=== PATIENT | male | born 1945 | race Caucasian/White ===

== ENCOUNTER 2016-12-16 11:49 | Emergency (ER) | payer MEDICARE, BC ==
[2016-12-16] MEDS ORDERED: Famotidine IV* 10 MG/ML 2 ML (20 mg) IV SLOW PU ONE (11:53)
[2016-12-16] MEDS ORDERED: methylPREDNISolone 125 MG* 2 ML VIAL IV ONE (11:53)
[2016-12-16] MEDS ORDERED: diPHENhydraMINE IV* 50 MG/ML 1 ml VIAL (BENADRYL) SLOW PUSH ONE (11:53)
[2016-12-16] MEDS ORDERED: NS 0.9% 1000 ML* 1,000 ML BOLUS ONE ×2 (11:53→13:04)
[2016-12-16] MEDS ORDERED: EPINEPHrine AMP 1 MG/ML IM ONE (11:54)
[2016-12-16 12:08] VITALS: BP 114/73
--- NOTE | 2016-12-16 12:09 | UC ---
Allergic Reaction HPI - HPI Summary HPI Summary: Stung by honey bee approx 11am today. Has had 2 other stings in the last week, never had a reaction before. After today's sting rapidly developed itchy patches of red skin, red streaking up L arm, bloodshot eyes, chest pain, nausea , and trouble breathing. Pt began vomiting during history/exam. - History of Current Complaint Stated Complaint: ALLERGIC REACTION-BEE STING Time Seen by Provider: 12/16/16 11:52 Hx Obtained From: Patient Onset/Duration: Gradual Onset, Lasting Minutes Severity Initially: Mild Severity Currently: Severe Character: Swelling, Pruritus, Hives Aggrevating Factor(s): Heat Associated Signs And Symptoms: Positive: Chest Pain, Cough Wheezing, Diaphoresis , Difficulty Breathing, Nausea, Throat Tightening, Vomiting - Allergies/Home Medications Allergies/Adverse Reactions: Allergies Allergy/AdvReac Type Severity Reaction Status Date / Time Bee Venom Allergy Anaphylatic Verified 12/16/16 12:08 Shock Home Medications: Home Medications Coenzyme Q10 (Ubidecarenone) [Co Q-10] 30 mg PO 12/16/16 [History] Misc Natural Products [Saw [place]] 1 cap PO 12/16/16 [History] Multiple Vitamins W/ Minerals [Multivitamin Men 50+] 1 tab PO 12/16/16 [History] PMH/Surg Hx/FS Hx/Imm Hx Previously Healthy: Yes - Surgical History Surgical History: Yes Surgery Procedure, Year, and Place: NOSE RECON AT [facility] [place], LEFT KNEE CARTLIDGE REPAIR 1998 - Family History Known Family History: Positive: Hypertension Family History: NON CONTRIBUTORY - Social History Lives: With Family Alcohol Use: None Substance Use Type: None Smoking Status (MU): Never Smoked Tobacco Review of Systems Constitutional: Negative Skin: Rash Eyes: Negative ENT: Negative Respiratory: Negative Cardiovascular: Negative Gastrointestinal: Vomiting, Nausea Genitourinary: Negative Motor: Negative Neurovascular: Negative Musculoskeletal: Negative Neurological: Negative Psychological: Anxious All Other Systems Reviewed And Are Negative: Yes Physical Exam Triage Information Reviewed: Yes Appearance: Well-Nourished, Ill-Appearing Vital Signs Reviewed: Yes Eye Exam: Other - PERRL Eyes: Positive: Conjunctiva Inflamed - bilat ENT: Positive: Pharynx normal, TMs normal, Other: - oropharynx widely patent. Negative: Pharyngeal erythema, Nasal congestion, Tonsillar swelling Dental Exam: Normal Neck exam: Normal Neck: Positive: Supple, Nontender, No Lymphadenopathy Respiratory: Positive: Normal breath sounds, No respiratory distress, Other: - pt complaining of difficutly breathing, but significant air movement noted. Negative: Stridor, Wheezing Cardiovascular Exam: Normal Cardiovascular: Positive: RRR, No Murmur Abdomen Description: Positive: Other: - active vomiting on exam Musculoskeletal Exam: Normal Neurological: Positive: Alert Psychological Exam: Other - prior to epinephrine was in distress, could only answer questions with active concentration and adequate time Skin Exam: Other - urticaria on L arm, bilat axillae Re-Evaluation - Re-Evaluation First Eval Re-Evaluation Time: 12:15 Change: Improved - vomiting stopped, pt reports feeling better Second Eval Re-Evaluation Time: 12:15 Change: Improved - color in face returned to normal, no further trouble breathing or nausea Third Eval Re-Evaluation Time: 12:40 Change: Improved - Pt sleeping soundly on cot, redness on R arm and in axillae still present but improving Fourth Eval Re-Evaluation Time: 13:00 Change: Improved - pt sleeping, no new redness or swelling Fifth Eval Re-Evaluation Time: 13:40 - discussed d/c with patient. He feels WAGNER and PND, otherwise feels normal and desires discharge Allergic Reaction Course/Dx - Differential Dx/Diagnosis Differential Diagnosis/HQI/PQRI: Anaphylaxis, Local Allergic Reaction, Urticaria Provider Diagnoses: anaphylaxis Discharge - Discharge Plan Condition: Stable Disposition: HOME Prescriptions: Epinephrine [Epipen 2-Jesus] 0.3 mg IM ONCE #1 inj Famotidine TAB* [Pepcid 20 MG TAB*] 20 mg PO DAILY #10 tab predniSONE TAB* [Deltasone TAB*] 50 mg PO DAILY #5 tab Patient Education Materials: Anaphylaxis (ED) Referrals: Raul Downing MD [Primary Care Provider] - 1 Week Additional Instructions: Continue to take diphenhydramine 50mg 3-4 times per day for the next 3 days. If you have chest pain, abdominal pain, increasing rash, nausea vomiting, or other worsening symptoms, please go to the emergency department right away.
[2016-12-16] MEDS ORDERED: EPINEPHrine AMP 1 MG/ML ONE (14:39)
== END 2016-12-16 14:20 | disposition home or self-care (01) ==
LOC: UCEAST 11:49
DX: T63.441A Toxic effect of venom of bees, accidental (unintentional), initial encounter (principal); T78.2XXA Anaphylactic shock, unspecified, initial encounter; R11.2 Nausea with vomiting, unspecified; X58.XXXA Exposure to other specified factors, initial encounter
CPT/HCPCS: 96360; 96361; 96372; 96374; 96375; 96376; 99212; G0463; J0171; J1200; J2930

== ENCOUNTER 2016-12-22 11:20 | Emergency (ER) | payer MEDICARE, BC ==
[2016-12-22 11:53] VITALS: BP 131/79
[2016-12-22] MEDS ORDERED: NS 0.9% 1000 ML* 1,000 ML IV ONE (12:11)
[2016-12-22 13:17] LABS: Hematocrit 48 % (42-52); Hemoglobin 15.7 g/dl (14.0-18.0); Mean Corpuscular HGB Conc 33 g/dl (31-36); Mean Corpuscular Hemoglobin 32 pg (27-31); Mean Corpuscular Volume 97 fL (80-94); Mean Platelet Volume 9 um3 (7.4-10.4); Red Blood Count 4.97 10^6/ul (4.0-5.4); Red Cell Distribution Width 14 % (10.5-15); White Blood Count 11.9 10^3/ul (3.5-10.8)
[2016-12-22 13:21] LABS: Urine Bilirubin Negative (Negative); Urine Glucose Negative (Negative); Urine Nitrite Negative (Negative)
[2016-12-22 13:30] LABS: BUN/Creatinine Ratio 24.1 (8-20); Calcium 9.6 mg/dL (8.6-10.3); EGFR African American 79.6 (>60); EGFR Non-African American 61.9 (>60); Globulin 2.9 g/dL (2-4); Potassium 3.4 mmol/L (3.5-5.0); Total Bilirubin 1.1 mg/dL (0.2-1.0); Total Protein 6.9 g/dL (6.4-8.9)
[2016-12-22 13:31] LABS: Troponin I 0.03 ng/mL (<0.04)
[2016-12-22] MEDS ORDERED: Iohexol 350* (CONTRAST) 500 ML MDV IV ONE (13:59)
--- NOTE | 2016-12-22 14:40 | RAD ---
HISTORY: Dizziness, neck pain COMPARISONS: None TECHNIQUE: Multiple contiguous axial CT scans were obtained of the head without intravenous contrast. FINDINGS: HEMORRHAGE/INFARCT: There is no hemorrhage or acute infarct. MASSES/SHIFT: There is no mass or shift. EXTRA-AXIAL SPACES: There are no extra-axial fluid collections. SULCI AND VENTRICLES: The sulci and ventricles are normal in size and position for the patient's stated age. CEREBRUM: There are no focal parenchymal abnormalities. BRAINSTEM: There are no focal parenchymal abnormalities. CEREBELLUM: There are no focal parenchymal abnormalities. VESSELS: The vessels are grossly normal. PARANASAL SINUSES: The paranasal sinuses are clear. ORBITS: The orbits are unremarkable. BONES AND SOFT TISSUE: No bone or soft tissue abnormalities are noted. OTHER: None IMPRESSION: NO ACUTE INTRACRANIAL PATHOLOGY.
--- NOTE | 2016-12-22 14:52 | RAD ---
HISTORY: Neck pain after manipulation, dissection COMPARISONS: CT dated December 14, 2012 TECHNIQUE: Multiple contiguous axial CT scans were obtained of the head and neck After the administration of nonionic intravenous contrast timed to the systemic arterial phase of contrast enhancement. Coronal and sagittal multiplanar reformations are submitted for review. Multiple 3-D maximum intensity projection reconstructions are also submitted for review. FINDINGS: CTA NECK: AORTIC ARCH: There is a normal three-vessel branching pattern of the aortic arch. There is no ostial or proximal stenosis of the cephalic great vessels. RIGHT VERTEBRAL ARTERY: The right vertebral artery is patent along its course, without stenosis. LEFT VERTEBRAL ARTERY: The left vertebral artery is patent along its course, without stenosis. DOMINANCE: The vertebral arteries are codominant. RIGHT COMMON CAROTID ARTERY: The right common carotid artery is patent. The right carotid bifurcation occurs at C4-C5. RIGHT INTERNAL CAROTID ARTERY: There is no right internal carotid artery stenosis by NASCET criteria. There is no appreciable intimal flap. RIGHT EXTERNAL CAROTID ARTERY: The right external carotid artery is unremarkable. LEFT COMMON CAROTID ARTERY: The left common carotid artery is patent. The left carotid bifurcation occurs at C4-C5 LEFT INTERNAL CAROTID ARTERY: There is no left internal carotid artery stenosis by NASCET criteria. There is no appreciable intimal flap LEFT EXTERNAL CAROTID ARTERY: The left external carotid artery is unremarkable. VENOUS CIRCULATION: The venous system is unremarkable. SALIVARY GLANDS: The parotid glands, submandibular glands, sublingual glands are normal. NASAL CAVITY/NASOPHARYNX: The nasal cavity and nasopharynx are normal. ORAL CAVITY/OROPHARYNX: The oral cavity is obscured by streak artifact from dental amalgam. The visualized oral cavity and oropharynx are unremarkable. LARYNGEAL APPARATUS/HYPOPHARYNX: The laryngeal apparatus and hypopharynx are normal. UPPER AIRWAY/UPPER ESOPHAGUS: The visualized upper airway and esophagus are normal. LUNG APICES: The lung apices are clear. THYROID GLAND: The thyroid gland is normal. LYMPH NODES: There is no lymphadenopathy by size criteria. BONES AND SOFT TISSUES: No bone or soft tissue abnormalities are noted. CTA HEAD: INTRACRANIAL CIRCULATION: There is no aneurysm, vascular malformation, occlusion, or stenosis of the visualized intracranial circulation. The anterior communicating artery complex is clear. There is a origin of the right posterior cerebral artery. VENOUS CIRCULATION: The venous system is unremarkable. PERFUSION: There is no obvious parenchymal perfusion deficit. HEMORRHAGE/INFARCT: There is no hemorrhage or acute infarct. MASSES/SHIFT: There is no mass or shift. EXTRA-AXIAL SPACES: There are no extra-axial fluid collections. SULCI AND VENTRICLES: The sulci and ventricles are normal in size and position for the patient's stated age. CEREBRUM: There are no focal parenchymal abnormalities. BRAINSTEM: There are no focal parenchymal abnormalities. CEREBELLUM: There are no focal parenchymal abnormalities. PARANASAL SINUSES: The paranasal sinuses are clear. ORBITS: The orbits are unremarkable. BONES AND SOFT TISSUE: No bone or soft tissue abnormalities are noted. OTHER: There is no abnormal enhancement. IMPRESSION: 1. NO INTERNAL CAROTID ARTERY STENOSIS BY NASCET CRITERIA. NO APPRECIABLE FLAP TO SUGGEST DISSECTION. 2. NO ANEURYSM, VASCULAR MALFORMATION, OCCLUSION, OR STENOSIS OF THE VISUALIZED INTRACRANIAL CIRCULATION. CPT II Codes: 3100F
--- NOTE | 2016-12-22 15:43 | ED ---
Dallas Restrepo SooYoung, scribed for Eric House MD on 12/22/16 at 1204 . Dizziness - HPI Summary HPI Summary: A 71 y/o M presents to ED with c/o nausea and dizziness onset yesterday afternoon. Sx came on when pt was having manipulation work done with Dr. Batres yesterday afternoon, as well as this AM. In between sessions, he states he went home and "slept for [address] Batres referred him to ED after the sx continued this AM. Associated sx: post nasal drip, frontal WAGNER, malaise. Denies abd pain, numbness/tingling, slurred speech, leg weakness. Alleviating factors: lying on side. Aggravating factors: lying on back. Pt states the sx often come on with certain yoga positions, manipulations where his neck is bending. Previous episodes occurred 5 and 10 years ago. Pert PMHx: chronic neck pain for past 6 months. - History Of Current Complaint Chief Complaint: EDDizziness Stated Complaint: DIZZY Time Seen by Provider: 12/22/16 11:51 Hx Obtained From: Patient, Family/Combination Technician Onset/Duration: Still Present Timing: Constant Severity Initially: Mild Severity Currently: Mild Aggravating Factor(s): Position Change Alleviating Factor(s): Lying Down - on side only Associated Signs And Symptoms: Positive: Other: - frontal WAGNER, post nasal drip, malaise - Allergies/Home Medications Allergies/Adverse Reactions: Allergies Allergy/AdvReac Type Severity Reaction Status Date / Time Bee Venom Allergy Anaphylatic Verified 12/22/16 14:17 Shock Home Medications: Home Medications Allopurinol TAB* [Zyloprim 300 MG TAB*] 300 mg PO DAILY 12/22/16 [History Confirmed 12/22/16] Coenzyme Q10 (Ubidecarenone) [Co Q-10] 30 mg PO DAILY 12/22/16 [History Confirmed 12/22/16] Epinephrine [Epipen 2-Jesus] 0.3 mg IM ONCE PRN 12/22/16 [History Confirmed ] Rosuvastatin (NF) [Crestor (NF)] 5 mg PO DAILY 12/22/16 [History Confirmed 12/22] PMH/Surg Hx/FS Hx/Imm Hx Previously Healthy: Yes Endocrine/Hematology History: Denies: Hx Diabetes, Hx Thyroid Disease Cardiovascular History: Denies: Hx Hypertension, Hx Pacemaker/ICD Respiratory History: Denies: Hx Asthma, Hx Chronic Obstructive Pulmonary Disease (COPD) GI History: Denies: Hx Ulcer History: Denies: Hx Dialysis, Hx Renal Disease Sensory History: Reports: Hx Hearing Aid Psychiatric History: Denies: Hx Panic Disorder - Surgical History Surgery Procedure, Year, and Place: NOSE RECON AT [facility] – [place] 1993, LEFT KNEE CARTLIDGE REPAIR 1998 Infectious Disease History: No Infectious Disease History: 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 Negative: Abdominal Pain Neurological: Other - pos: dizziness, malaise Positive: Headache. Negative: Weakness, Numbness, Slurred Speech All Other Systems Reviewed And Are Negative: Yes Physical Exam - Summary Physical Exam Summary: The patient is well-nourished in no acute distress and in no acute pain. The skin is warm and dry and skin color reflects adequate perfusion. HEENT: The head is normocephalic and atraumatic. The pupils are equal and reactive. EOMI. No nystagmus. The conjunctivae are clear and without drainage. Nares are patent and without drainage. Mouth reveals moist dry membranes and the throat is without erythema and exudate. The external ears are intact. The ear canals are patent and without drainage. The tympanic membranes are intact. Neck is supple and non-tender. There are no carotid bruits. There is no neck vein distension. Extension and flexion exacerbate symptoms. Respiratory: Chest is non-tender. Lungs are clear to auscultation and breath sounds are symmetrical and equal. Cardiovascular: Bradycardia. There is no murmur or rub auscultated. There is no peripheral edema and pulses are symmetrical and equal. Abdomen: The abdomen is soft and non-tender. There are normal bowel sounds heard in all four quadrants and there is no organomegaly palpated. Musculoskeletal: There is no back pain noted. Extremities are non-tender with full range of motion. There is good capillary refill. There is no peripheral edema or calf tenderness elicited. Neurological: Patient is alert and oriented to person, place and time. Cranial nerves are grossly intact. No focal neural deficit in upper and lower extremities. Psychiatric: The patient has an appropriate affect and does not exhibit any anxiety or depression. Triage Information Reviewed: Yes Vital Signs On Initial Exam: Initial Vitals Temp Pulse Resp BP Pulse Ox 96.9 F 86 18 135/102 96 12/22/16 11:25 12/22/16 11:25 12/22/16 11:25 12/22/16 11:25 12/22/16 11:25 Vital Signs Reviewed: Yes - [place] Coma Scale Coma Scale Total: 15 Diagnostics - Vital Signs Vital Signs Temp Pulse Resp BP Pulse Ox 12/22/16 11:36 53 94 12/22/16 11:34 131/79 12/22/16 11:28 97.3 F 82 18 135/102 92 12/22/16 11:25 96.9 F 86 18 135/102 96 - Laboratory Lab Results: Lab Results 12/22/16 12/22/16 12/22/16 Range/Units 12:56 12:56 12:56 WBC 11.9 H (3.5-10.8) 10^3/ul RBC 4.97 (4.0-5.4) 10^6/ul Hgb 15.7 (14.0-18.0) g/dl Hct 48 (42-52) % MCV 97 H (80-94) fL MCH 32 H (27-31) pg MCHC 33 (31-36) g/dl RDW 14 (10.5-15) % Plt Count 218 (150-450) 10^3/ul MPV 9 (7.4-10.4) um3 Neut % (Auto) 76.7 (38-83) % Lymph % (Auto) 15.8 L (25-47) % [place] % (Auto) 7.2 (1-9) % Eos % (Auto) 0.1 (0-6) % Baso % (Auto) 0.2 (0-2) % Absolute Neuts (auto) 9.1 H (1.5-7.7) 10^3/ul Absolute Lymphs (auto) 1.9 (1.0-4.8) 10^3/ul Absolute Monos (auto) 0.9 H (0-0.8) 10^3/ul Absolute Eos (auto) 0 (0-0.6) 10^3/ul Absolute Basos (auto) 0 (0-0.2) 10^3/ul Absolute Nucleated RBC 0 10^3/ul Nucleated RBC % 0 INR (Anticoag Therapy) 0.95 (0.89-1.11) Sodium (133-145) mmol/L Potassium (3.5-5.0) mmol/L Chloride (101-111) mmol/L Carbon Dioxide (22-32) mmol/L Anion Gap (2-11) mmol/L BUN (6-24) mg/dL Creatinine (0.67-1.17) mg/dL Est GFR ( Amer) (>60) Est GFR (Non-Af Amer) (>60) BUN/Creatinine Ratio (8-20) Glucose (70-100) mg/dL Lactic Acid (0.5-2.0) mmol/L Calcium (8.6-10.3) mg/dL Total Bilirubin (0.2-1.0) mg/dL AST (13-39) U/L ALT (7-52) U/L Alkaline Phosphatase (34-104) U/L Troponin I (<0.04) ng/mL Total Protein (6.4-8.9) g/dL Albumin (3.2-5.2) g/dL Globulin (2-4) g/dL Albumin/Globulin Ratio (1-3) Urine Color Yellow Urine Appearance Cloudy Urine pH 6.0 (5-9) Ur Specific [place] 1.024 (1.010-1.030) Urine Protein Negative (Negative) Urine Ketones Trace H (Negative) Urine Blood Negative (Negative) Urine Nitrate Negative (Negative) Urine Bilirubin Negative (Negative) Urine Urobilinogen Negative (Negative) Ur Leukocyte Esterase Negative (Negative) Urine Glucose Negative (Negative) Urine Ascorbic Acid * H (Negative) 12/22/16 12/22/16 Range/Units 12:56 12:56 WBC (3.5-10.8) 10^3/ul RBC (4.0-5.4) 10^6/ul Hgb (14.0-18.0) g/dl Hct (42-52) % MCV (80-94) fL MCH (27-31) pg MCHC (31-36) g/dl RDW (10.5-15) % Plt Count (150-450) 10^3/ul MPV (7.4-10.4) um3 Neut % (Auto) (38-83) % Lymph % (Auto) (25-47) % [place] % (Auto) (1-9) % Eos % (Auto) (0-6) % Baso % (Auto) (0-2) % Absolute Neuts (auto) (1.5-7.7) 10^3/ul Absolute Lymphs (auto) (1.0-4.8) 10^3/ul Absolute Monos (auto) (0-0.8) 10^3/ul Absolute Eos (auto) (0-0.6) 10^3/ul Absolute Basos (auto) (0-0.2) 10^3/ul Absolute Nucleated RBC 10^3/ul Nucleated RBC % INR (Anticoag Therapy) (0.89-1.11) Sodium 140 (133-145) mmol/L Potassium 3.4 L (3.5-5.0) mmol/L Chloride 104 (101-111) mmol/L Carbon Dioxide 29 (22-32) mmol/L Anion Gap 7 (2-11) mmol/L BUN 28 H (6-24) mg/dL Creatinine 1.16 (0.67-1.17) mg/dL Est GFR ( Amer) 79.6 (>60) Est GFR (Non-Af Amer) 61.9 (>60) BUN/Creatinine Ratio 24.1 H (8-20) Glucose 110 H (70-100) mg/dL Lactic Acid 1.2 (0.5-2.0) mmol/L Calcium 9.6 (8.6-10.3) mg/dL Total Bilirubin 1.10 H (0.2-1.0) mg/dL AST 18 (13-39) U/L ALT 30 (7-52) U/L Alkaline Phosphatase 63 (34-104) U/L Troponin I 0.03 (<0.04) ng/mL Total Protein 6.9 (6.4-8.9) g/dL Albumin 4.0 (3.2-5.2) g/dL Globulin 2.9 (2-4) g/dL Albumin/Globulin Ratio 1.4 (1-3) Urine Color Urine Appearance Urine pH (5-9) Ur Specific [place] (1.010-1.030) Urine Protein (Negative) Urine Ketones (Negative) Urine Blood (Negative) Urine Nitrate (Negative) Urine Bilirubin (Negative) Urine Urobilinogen (Negative) Ur Leukocyte Esterase (Negative) Urine Glucose (Negative) Urine Ascorbic Acid (Negative) Result Diagrams: 12/22/16 12:56 12/22/16 12:56 Lab Statement: Any lab studies that have been ordered have been reviewed, and results considered in the medical decision making process. - CT Brain CT CT Interpretation: No Acute Changes - Impression: No acute intracranial pathology. CT Interpretation Completed By: Radiologist Head CTA CT Interpretation: No Acute Changes - IMPRESSION: 1. NO INTERNAL CAROTID ARTERY STENOSIS BY NASCET CRITERIA. NO APPRECIABLE FLAP TO SUGGEST DISSECTION. 2. NO ANEURYSM, VASCULAR MALFORMATION, OCCLUSION, OR STENOSIS OF THE VISUALIZED INTRACRANIAL CIRCULATION. CT Interpretation Completed By: Radiologist Re-Evaluation - Re-Evaluation 1 Re-Evaluation Time: 14:59 Change: Improved Comment: Discussing lab and CT results with pt. Pt lying on back without sx, denies dizziness. Ready to go home. Dizzy Course/Dx - Course Course Of Treatment: A 71 y/o M presents to ED with c/o nausea and dizziness onset yesterday afternoon. Sx came on when pt was having manipulation work done yesterday afternoon, as well as this AM. In between sessions, he states he went home and "slept for 24 hours." Referred to ED by Dr. Batres after the sx continued this AM. Associated sx: post nasal drip, frontal WAGNER, malaise. Denies abd pain, numbness/tingling, slurred speech, leg weakness. Alleviating factors: lying on side. Aggravating factors: lying on back. Pt states the sx often come on with certain yoga positions, manipulations where his neck is bending. Previous episodes occurred 5 and 10 years ago. Pert PMHx: chronic neck pain for past 6 months. Pt given fluids in ED. Lab results show elevated BUN/C ratio. Trop was 0.03. UA results show trace ketones and ascorbic acid present. Brain CT shows no acute findings. Head CTA shows no acute findings, see Diagnostics for full impression. Will D/C home. - Diagnoses Differential Diagnosis/HQI/PQRI: Benign Paroxysmal Positional Vertigo, Hypovolemia, Labyrinthitis, Other - carotid dissection, carotid occlusion, cva, dehydration Provider Diagnoses: Dizziness, Dehydration, Neck pain Discharge - Discharge Plan Condition: Stable Disposition: HOME Patient Education Materials: Dizziness (ED), Dehydration (ED), Neck Pain (ED) Referrals: Raul Downing MD [Primary Care Provider] - Additional Instructions: Please return to the ED if you experience new or worsening symptoms. The documentation as recorded by the Dallas pollock SooYoung accurately reflects the service I personally performed and the decisions made by , Eric House MD.
== END 2016-12-22 15:45 | disposition home or self-care (01) ==
LOC: ED 11:20
DX: R42 Dizziness and giddiness (principal); E86.0 Dehydration; M54.2 Cervicalgia
CPT/HCPCS: 36415; 70450; 70496; 70498; 80053; 81003; 83605; 84484; 85025; 85610; 96360; 99283; Q9967

== ENCOUNTER 2016-12-30 12:24 | Emergency (ER) | payer MEDICARE, BC ==
[2016-12-30 12:29] VITALS: BP 129/89
[2016-12-30] MEDS ORDERED: NS 0.9% 1000 ML* 1,000 ML BOLUS ONE (12:36)
[2016-12-30] MEDS ORDERED: methylPREDNISolone 125 MG* 2 ML VIAL IV ONE (12:37)
[2016-12-30] MEDS ORDERED: Famotidine IV* 10 MG/ML 2 ML (20 mg) IV SLOW PU ONE (12:37)
[2016-12-30] MEDS ORDERED: EPINEPHrine AMP 1 MG/ML IM ONE (12:38)
--- NOTE | 2016-12-30 12:46 | UC ---
Knee Pain HPI - HPI Summary HPI Summary: Pt had anaphylaxis to honey bee sting 12/16/16. Was stung again today approx 30 minutes ago, mainly feeling local pain and swelling. Starting to get a little light-headed, but denies hives, vomiting, trouble breathing, chest pain, or mouth swelling. Has epi pen at home but did not want to use it because of the needle. - History of Current Complaint Chief Complaint: UCAllergicReaction Stated Complaint: BEE STING Time Seen by Provider: 12/30/16 12:30 Hx Obtained From: Patient Onset/Duration: Sudden Onset Severity Initially: Mild Severity Currently: Mild Character: Dull, Aching Aggravating Factor(s): Movement Alleviating Factor(s): Rest Associated Signs And Symptoms: Positive: Swelling, Redness Able to Bear Weight: Yes - Allergies/Home Medications Allergies/Adverse Reactions: Allergies Allergy/AdvReac Type Severity Reaction Status Date / Time Bee Venom Allergy Anaphylatic Verified 12/22/16 14:17 Shock PMH/Surg Hx/FS Hx/Imm Hx Previously Healthy: No - anaphylaxis - Surgical History Surgical History: Yes Surgery Procedure, Year, and Place: [place] [facility], LEFT KNEE CARTLIDGE REPAIR 1998 - Family History Known Family History: Positive: Cardiac Disease, Hypertension Family History: NON CONTRIBUTORY - Social History Occupation: Retired Lives: With Family Alcohol Use: Rare Substance Use Type: None Smoking Status (MU): Never Smoked Tobacco Review of Systems Constitutional: Negative Skin: Other - bee sting L knee Eyes: Negative ENT: Negative Respiratory: Negative Cardiovascular: Negative Gastrointestinal: Negative Genitourinary: Negative Motor: Negative Neurovascular: Negative Musculoskeletal: Negative Neurological: Negative Psychological: Negative All Other Systems Reviewed And Are Negative: Yes Physical Exam Triage Information Reviewed: Yes Appearance: Well-Appearing, No Pain Distress, Well-Nourished Vital Signs: Initial Vital Signs Temp 98 F 12/30/16 12:26 Pulse 75 12/30/16 12:26 Resp 16 12/30/16 12:26 BP 129/89 12/30/16 12:26 Pulse Ox 100 12/30/16 12:26 Vital Signs Reviewed: Yes Eye Exam: Normal Eyes: Positive: Conjunctiva Clear ENT Exam: Normal ENT: Positive: Normal ENT inspection, Hearing grossly normal, Pharynx normal - widely patent, Nasal congestion Dental Exam: Normal Neck exam: Normal Neck: Positive: Supple, Nontender, No Lymphadenopathy Respiratory Exam: Normal Respiratory: Positive: Chest non-tender, Lungs clear, Normal breath sounds, No respiratory distress, No accessory muscle use, Respiratory distress Cardiovascular Exam: Normal Cardiovascular: Positive: RRR, No Murmur Abdomen Description: Positive: Nontender, No Organomegaly, Soft Musculoskeletal Exam: Normal Neurological Exam: Normal Neurological: Positive: Alert Psychological Exam: Normal Skin Exam: Normal - no hives Re-Evaluation - Re-Evaluation First Eval Re-Evaluation Time: 13:00 Change: Improved - Does not feel dizzy or light-headed Second Eval Re-Evaluation Time: 13:32 Change: Improved - no itchiness, nausea, or pain. Feels ready to go home. Knee Pain Course/Dx - Course Course Of Treatment: Discussed continuing the benadryl for 3-4 days; pt does not want to take prednisone, but I will prescribe it in case he has increasing symptoms or a large local reaction. - Differential Dx/Diagnosis Provider Diagnoses: insect sting. elevated blood pressure due to anxiety Discharge - Discharge Plan Condition: Stable Disposition: HOME
== END 2016-12-30 13:40 | disposition home or self-care (01) ==
LOC: UCEAST 12:24
DX: T63.441A Toxic effect of venom of bees, accidental (unintentional), initial encounter (principal); R22.42 Localized swelling, mass and lump, left lower limb
CPT/HCPCS: 96361; 96374; 96375; 99212; G0463; J0171; J2930

== ENCOUNTER 2017-09-17 23:14 | Emergency (ER) | payer MEDICARE, BC ==
--- OUTSIDE RECORDS SUMMARY | 2017-09-17 23:31 | XMS REPORT ---
:1945 External Reference #:[id number] Author Organization [facility] Address [address] [place] [address] Phone [phone] Care Team Providers Name Role Phone Raul Downing M.D. Care Team Information Government Gauger Unavailable Raul Downing M.D. Primary Care Physician Unavailable Payers Type Date Identification Numbers Payment Provider Subscriber Medicare Primary Policy Number: [id number] Medicare-National Tirso Heard GVT.Sys PayID: [id number] [address] [place] [address] Medigap Part B Effective: Policy Number: [place]-[employer] Tirso Heard 2016 [id number] Healthcare Group Number: [id number] [address] Group Name: [place] [address] PayID: [id number] Problems Date Description Provider Status Onset: 01/12/2017 Toxic effect of venom of bees, Kourtney Blanco M.D. 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 Home Environment Cotton Comforter Home Environment Mattress is 2 years old Home Environment Mattress is not encased in an allergy proof case Home Environment Regular Mattress Home Environment Pillows are rubber (foam) Home Environment Pillows are not encased in an allergy proof case Home Environment There are no draperies in the home Home Environment The home is sreekanth Home Environment The floors are carpeted Home Environment The floors are wood Home Environment The floors are tile Home Environment Uses propane gas heating Home Environment Uses wood heating Home Environment [place] Home Environment Water Source: Well Smoke-Free Home is smoke-free Smoke-Free Work is smoke-free Pets 1 dog Occupation Retired Hobbies Cooking Hobbies Gardening Hobbies Sports Hobbies Tennis, Bonsai, Bees ETOH Use Rarely consumes alcohol Smoking Patient has never smoked Recreational Drug Use Never Used Drugs Allergies, Adverse Reactions, Alerts Date Description Reaction Status Severity Comments 01/12/2017 NKDA active Medications Medication Date Status Form Strength Qnty SIG Indications Ordering Provider Allopurinol Active Tablets 300mg Silcoff, 000 Juliocesar Carter Epinephrine Active Solution 0.3mg/0.3ML Unknown 000 Auto-Inject Crestor Active Tablets 5mg Unknown 000 Meloxicam Active Tablets 15mg Unknown 000 Yamini Active Tablets 180mg 1 by Unknown Allergy 000 mouth every day Medications Administered in Office Medication Date Status Form Strength Qnty SIG Indications Ordering Provider Injection 08/30/19 Administered Injection Allergy 18 Injection Injection 08/22/19 Administered Injection Allergy 18 Injection Injection 08/15/19 Administered Injection Allergy 18 Injection Injection 08/08/19 Administered Injection Allergy 18 Injection Injection 08/01/19 Administered Injection Allergy 18 Injection Injection 07/25/19 Administered Injection Allergy 18 Injection Injection 06/17/20 Administered Injection Allergy 17 Injection Injection 06/13/20 Administered Injection Allergy 17 Injection Injection 06/06/20 Administered Injection Allergy 17 Injection Injection 05/30/20 Administered Injection Allergy 17 Injection Injection 05/23/20 Administered Injection Allergy 17 Injection Injection 05/09/20 Administered Injection Allergy 17 Injection Injection 05/02/20 Administered Injection Allergy 17 Injection Injection 04/25/20 Administered Injection Allergy 17 Injection Injection 04/11/20 Administered Injection Allergy 17 Injection Injection 04/04/20 Administered Injection Allergy 17 Injection Injection 03/25/20 Administered Injection Allergy 17 Injection Injection 03/21/20 Administered Injection Allergy 17 Injection Injection 03/14/20 Administered Injection Allergy 17 Injection Injection 03/07/20 Administered Injection Allergy 17 Injection Injection 02/26/20 Administered Injection Allergy 17 Injection Injection 02/22/20 Administered Injection Allergy 17 Injection Injection 02/15/20 Administered Injection Allergy 17 Injection Injection 02/08/20 Administered Injection Allergy 17 Injection Injection 02/01/20 Administered Injection Allergy 17 Injection Immunizations CPT Code Status Date Vaccine Lot # 53949 Given Unknown Influenza Vaccine 3 Years Old + Vital Signs Date Vital Result Comment 09/02/2017 Height 70 inches 5'10" Weight 195.00 lb Weight in kg's 88.452 Respiratory Rate 22 /min Heart Rate 66 /min O2 % BldC Oximetry 97 % BP Systolic 116 mmHg BP Diastolic 75 mmHg BMI (Body Mass Index) 28.0 kg/m2 02/16/2017 Height 70 inches 5'10" Weight 185.00 lb Weight in kg's 83.916 Respiratory Rate 20 /min Heart Rate 62 /min O2 % BldC Oximetry 98 % BP Systolic 123 mmHg BP Diastolic 69 mmHg BMI (Body Mass Index) 26.5 kg/m2 01/12/2017 Height 69 inches 5'9" Weight 187.00 lb Weight in kg's 84.823 Respiratory Rate 20 /min Heart Rate 66 /min O2 % BldC Oximetry 98 % BP Systolic 120 mmHg BP Diastolic 74 mmHg BMI (Body Mass Index) 27.6 kg/m2 Results Test Date Test Result H/L Range Note Laboratory test finding 01/12/2017 Rast White Face Hornet 0.76 kU/L 1 Rast Yellow Hornet 1.03 kU/L 2 Rast Yellow Jacket 2.17 kU/L 3 Rast Paperwasp Venom 0.54 kU/L 4 Rast Honeybee Venom 70.2 kU/L 5 Tryptase 1.1 ng/mL <11.5 6 1 Class 2 (Positive 0.70-3.49) Test Performed by: [place] [address] 2 Class 2 (Positive 0.70-3.49) Test Performed by: [address] [address] 3 Class 2 (Positive 0.70-3.49) Test Performed by: [address] [address] 4 Class 1 (Equivocal 0.35-0.69) Test Performed by: [address] [address] 5 Class 5 (Strongly Positive 50.0-99.9) Test Performed by: [address] [address] Test Performed by: [address] [address] Procedures Date CPT Code Description Status 08/29/2017 08620 Injection Completed 08/22/2017 60609 Injection Completed 08/15/2017 56021 Injection Completed 08/08/2017 99903 Injection Completed 08/01/2017 20518 Injection Completed 07/25/2017 81278 Injection Completed 06/17/2017 05820 Injection Completed 06/13/2017 41262 Injection Completed 06/06/2017 52945 Injection Completed 05/30/2017 75909 Injection Completed 05/23/2017 22284 Injection Completed 05/09/2017 07959 Injection Completed 05/02/2017 96591 Injection Completed 04/25/2017 48394 Injection Completed 04/11/2017 00885 Injection Completed 04/04/2017 89473 Injection Completed 03/25/2017 98813 Injection Completed 03/21/2017 96671 Injection Completed 03/14/2017 43583 Injection Completed 03/07/2017 51413 Injection Completed 02/25/2017 79653 Injection Completed 02/21/2017 88643 Injection Completed 02/14/2017 46960 Injection Completed 02/07/2017 87529 Injection Completed 01/31/2017 38374 Injection Completed 01/25/2017 94880 Extract Stings-Five Completed Encounters Type Date Location Provider CPT E/M Dx Office Visit 09/02/2017 10:00a OUMOU Mcgee 41137 T63.461D T63.441D Office Visit 02/16/2017 9:00a OUMOU Mcgee 08122 T63.441D T63.461D T63.441A Office Visit 01/12/2017 9:40a Juan Jose Blanco M.D. 65992 T63.441A Plan of Care Future Appointment(s):03/06/2018 10:00 am - OUMOU Venegas at Riexvw5805/2018 8:45 am - Allergy Injection at Jzyalf3309/02/2017 - Izabel Woods, SALES RECRUITER- CT63.461D Toxic effect of venom of wasps, accidental, subsT63.441D Toxic effect of venom of bees, accidental, subsRecommendations:Continue all medications as prescribed.Refrain from wearing perfumes/scented colognes while visitingour office. Continue the IT as tolerated. Continue the Epipen,UTD
--- OUTSIDE RECORDS SUMMARY | 2017-09-17 23:31 | XMS REPORT ---
:1945 External Reference #:[id number] Author Organization [facility] Address [address] [place] [address] Phone [phone] Care Team Providers Name Role Phone Raul Downing M.D. Care Team Information Transportation Modeler Unavailable Raul Downing M.D. 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 Home Environment Cotton Comforter Home Environment Mattress [...] Strength Qnty SIG Indications Ordering Provider Injection 09/06/19 Administered Injection Allergy 18 Injection Injection 08/30/19 Administered Injection Allergy 18 Injection [...] CPT Code Status Date Vaccine Lot # [id number] Given Unknown Influenza Vaccine 3 Years Old [...] Class 2 (Positive 0.70-3.49) Test Performed by: [address] [address] 2 Class 2 (Positive 0.70-3.49) Test Performed by: [address] [address] 3 Class 2 (Positive 0.70-3.49) Test Performed by: [place] [id number] 4 Class 1 (Equivocal 0.35-0.69) Test Performed by: [address] [address] 5 Class 5 (Strongly Positive 50.0-99.9) Test Performed by: [address] [address] Test Performed by: [address] [address] Procedures Date CPT Code Description Status 09/05/2017 93516 Extract Stings-Five Completed 09/05/2017 07040 Injection Completed 08/29/2017 97843 Injection Completed 08/22/2017 44544 Injection Completed 08/15/2017 84330 Injection Completed 08/08/2017 51759 Injection Completed 08/01/2017 79878 Injection Completed 07/25/2017 73383 Injection Completed 06/17/2017 47815 Injection Completed 06/13/2017 38218 Injection Completed 06/06/2017 25645 Injection Completed 05/30/2017 55216 Injection Completed 05/23/2017 32781 Injection Completed 05/09/2017 42505 Injection Completed 05/02/2017 89671 Injection Completed 04/25/2017 33629 Injection Completed 04/11/2017 72093 Injection Completed 04/04/2017 81549 Injection Completed 03/25/2017 69877 Injection Completed 03/21/2017 46214 Injection Completed 03/14/2017 78345 Injection Completed 03/07/2017 53630 Injection Completed 02/25/2017 26287 Injection Completed 02/21/2017 31265 Injection Completed 02/14/2017 62059 Injection Completed 02/07/2017 89036 Injection Completed 01/31/2017 02306 Injection Completed 01/25/2017 29810 Extract Stings-Five Completed Encounters Type Date Location Provider CPT E/M Dx Office Visit 09/02/2017 10:00a OUMOU Mcgee 93615 T63.461D T63.441D Office Visit 02/16/2017 9:00a OUMOU Mcgee 01610 T63.441D T63.461D T63.441A Office Visit 01/12/2017 9:40a Juan Jose Blanco M.D. 24549 T63.441A Plan of Care Future Appointment(s):09/12/2017 9:00 am - Allergy Injection at [id number] 10:00 am - FAIZAN Venegas-C at Pdaiim4709/02/2017 - FAIZAN Venegas-CT63.461D Toxic effect of venom of wasps, accidental, subsT63.441D Toxic effect of venom of bees, accidental, subsRecommendations:Continue all medications as prescribed.Refrain from wearing perfumes/scented colognes while visitingour office. Continue the IT as tolerated. Continue the Epipen,UTD
--- OUTSIDE RECORDS SUMMARY | 2017-09-17 23:31 | XMS REPORT ---
:1945 External Reference #:[id number] Author Organization [facility] Address [address] [place] [address] Phone [phone] Care Team Providers Name Role Phone HCP given Primary Care Physician Unavailable Payers Type Date Identification Numbers Payment Provider Subscriber Medicare Primary Effective: Policy Number: National [facility] Jesus Heard 2015 [id number] Services PayID: [id number] [address] [place] [address] Medigap Part B Effective: 2005 Policy Number: [id number] Danburyelder Chahal Orquidea PayID: [id number] [address] [place] [address] Problems Date Description Provider Status Onset: 05/11/2010 Migraine with typical aura Raul Downing M.D. Active Onset: 06/02/2011 Gastroesophageal reflux disease Raul Downing M.D. Active Onset: 06/02/2011 History of malignant neoplasm of Raul Downing M.D. Active prostate Onset: 06/13/2012 Gout Raul Downing M.D. Active Onset: 09/12/2017 Pure hypercholesterolemia Raul Downing M.D. Active Family History Date Family Member(s) Problem(s) Comments General Osteoporosis older brother and sister : (age 85 Father due to "Old Age" "heart attack in his Years) sleep" Father Angina In his 50s Father Stroke In his 50s Father 1900 Onset: (age 92 Mother "Old Age" Years) Mother due to Natural () - AGE 92 Causes ("heart attack in her sleep") Mother Dementia Mother 190 Number of Children 1 son and 1 daughter : (age 23 First Son due to Suicide Years) First Son Bipolar Affective Disorder First Son Sunny First Son 1974 First Daughter Depression First Daughter Maria Guadalupe First Daughter 1976 : (age 72 First Brother due to CXS Of AGE 72 Years) Fall From PD First Brother Daryl First Brother 1921 Second Brother due to MVA () - Train accident AGE 32 Second Brother Antoine Second Brother 1936 Third Brother Dementia ?vascular Third Brother Osteoporosis Third Brother Harry Third Brother 1940 First Sister Angina : First Sister due to ALS or ALS variant (03/2015) First Sister Stroke MILD First Sister Melanoma First Sister Cherri First Sister 192 : (age 58 Second Sister due to Breast AGE 58 Years) Cancer Second Sister Carie Second Sister 194 Social History Type Date Description Comments Marital Status Smoke-Free Home is smoke-free Occupation 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 Cigarette Use Denies Cigarette Use ETOH Use Rarely consumes alcohol Recreational Drug Use Never Used Drugs Smoking Non Smoker Daily Caffeine Consumes on average 1 cup of coffee per day Exercise Type/Frequency Exercises regularly Sun Exposure moderate amount of sun exposure Sun Exposure Uses sunscreen Seat Belt/Car Seat always uses seat belt Currently Active Patient is currently sexually active Contraceptive Methods None Age 1st [place] 19 Years Old Sexual Hx Patient has had 1 sexual partner. Allergies, Adverse Reactions, Alerts Date Description Reaction Status Severity Comments 10/29/2003 NKDA active Medications Medication Date Status Form Strength Qnty SIG Indications Ordering Provider Shingrix 09/12/ Active Suspension 50mcg 2units administer 2 Z23 2017 Rec doses as carrie Carter M.D. per cdc guidelines Omeprazole 03/22/ Active Capsules DR 20mg 90caps take one M54.2 Patric[place]o2016 capsule by gary Carter every M.D. day while on daily or near daily 'Nsaid' medication (eg Meloxicam) M50.30 K21.9 Meloxicam 03/21/2017 Active Tablets 7.5mg 1 tablet daily, for chronic M54.2 Unknown neck pain M50.30 PT For Neck 03/02/2017 Active please evaluate and M54.2 Raul Downing Pain treat, instruct in M.D. hep, modalities prn; see MRI M50.30 Epinephrine 12/17/2016 Active Solution 0.3mg/0.3ML Inject 0.3 Unknown Auto-Inject MG Once Use At First Signs Of Allergic Reaction to bee stings Crestor 05/08/2015 Active Tablets 5mg 90tab take 1 E Silcoff, s tablet daily 7 Raul, for high 8 M.D. cholesterol . (to replace 0 atorvastatin ) Melatonin 06/14/2013 Active Capsules OTC prn Unknown Omeprazole 02/17/[address] 40mg 30cap 1 capsule K Silcoff , s daily as 2 Raul, needed for 1 M.D. acid reflux . 9 Allopurinol 02/17/2009 Active Tablets 300mg 90tab take 1 M Silcoff, s tablet by 1 Raul, mouth once 0 M.D. daily to . prevent gout 9 Multivitamins Active Tablets 1 po qd Unknown PT For 11/25/2015 - Hx please [place] Bilateral Hand 07/29/2016 evaluate and Raul Pain treat, M.Jojo instruct in hep, modalities prn PT For Trigger 04/27/2015 - Hx please Luzmaria Downs (L 07/28/2015 evaluate and 6 Savita Carter) treat, 5 M.D. instruct in . hep, 3 modalities 1 prn 2 Atorvastatin 03/14/2015 - Hx Tablets 10mg 90tab take 1 E Silcoff, Calcium 05/08/2015 s tablet daily 7 Raul, to reduce 8 M.D. cholesterol . and lower 0 your heart disease risk PT For Trigger 12/23/2014 - Hx evaluate and Luzmaria Downing (R 3RD 03/13/2015 treat, Luzmaria Carter) modalities M.D. prn, instruct in hep s appropriate Malarone 12/13/2014 - Hx Tablets 250-100mg 21tab 1 by mouth Silcoff, 02/11/2015 s every day Raul, starting 1-2 M.D. days before arrival into malaria endemic region, continue for 1 week after leaving Atorvastatin 09/15/2014 - Hx Tablets 10mg 45tab 1 by mouth E Silcoff, Calcium 03/14/2015 s every other 7 Raul, day to 8 M.D. reduce . cholesterol 0 and lower your risk of developing heart disease Cipro 11/01/2012 - Hx Tablets 500mg 20tab 1 po bid as Silcoff, 12/31/2012 s needed for Raul travellu M.D. diarrhea, for 1-3 days as directed Cipro 11/24/2011 - Hx Tablets 500mg 20tab 1 po bid as Silcoff, 12/24/2011 s needed for Raul, travellers M.D. diarrhea, for 1-3 days as directed PT For Right 07/21/2011 - Hx please 8 Silcoff, Hip (Groin) 06/12/2012 evaluate and 4 Betty Carter treat, 3 M.D. instruct in . hep, 8 modalities prn Codeine Sulfate 05/03/2011 - Hx Tablets 15mg 20tab 1-2 by mouth 7 Silcoff, 05/13/2011 s every night 8 Raul, as needed 4 M.D. for cough . and sore 1 throat; may repeat x1 overnight after 4hrs 786.2 Amoxicillin 05/03/2011 - Hx Tablets 500mg 60tabs 2 by mouth three 461.1 Silcoff, 05/13/2011 times a day for Raul, 10 days for M.DBrendan sinusitis Cipro 03/11/2010 - Hx Tablets 500mg 20tabs 1 po bid for 10 562.11 Silcoff, 03/21/2010 days Juliocesar Carter Augmentin 03/21/2009 - Hx Tablets 875mg 20tabs 1 po bid, to 562.11 Silcoff, 06/17/2009 start at onset of Raul symptoms of Dulce.DBrendan diverticulitis 562.10 Cipro 03/11/2009 - Hx Tablets 500mg 20tabs 1 po bid for 562.11 Silcoff, 03/20/2009 10 days Juliocesar Carter Metronidazole 03/11/2009 - Hx Tablets 500mg 40tabs 1 po qid x10 562.11 Silcoff, 03/21/2009 days Juliocesar Carter Glucosamine/Johnnie 02/17/2009 - Hx Tablets using for Silcoff, droitin/MSM 07/13/2011 his hip pain luna Carter M.D. Zolpidem 02/17/2009 - Hx Tablets 10mg 30tabs 1 po qhs prn 780.52 Silcoff, Tartrate 06/17/2014 for sleep; Raul, you should M.D. only take this if you have 8hrs to devote to sleep Malarone 12/24/2008 - Hx Tablets 250-100 16tabs 1 po qd Silcoff, 02/07/2009 starting 1-2 Raul, days before M.D. entry into malaria endemic area, stop 1 wk after leaving Allopurinol 12/02/2008 - Hx Tablets 100mg 2 po qd to 274.9 Silcoff, 02/17/2009 prevent gout Juliocesar Carter Allopurinol 02/09/2008 - Hx Tabs 100mg 90tabs take 1 274.9 Silcoff, 12/02/2008 tablet by Raul, mouth once M.D. daily PT Referral For 08/19/2006 - Hx please 719.46 Silcoff, Acute Left Knee 03/10/2009 evaluate and Raul Pain Juliocesar drew modalities prn; instruct in hep Hydrocodone 08/04/2006 - Hx Capsules 5mg;500 60caps 1-2 q6h prn anyi & 01/26/2008 mg pain Acetaminophen PT Referral For 03/15/2006 - Hx please offer 724.5 Silcoff, Back/Buttock 05/15/2006 PT for back Raul Pain pain. Juliocesar evaluate and treat, exercises, modalities prn. Zithromax Z-Jesus 02/03/2006 - Hx Tablets 250mg 1Pack 2 PO On Day 786.2 Silcoff, 02/08/2006 1, 1 PO On Raul, Days 2-5 M.D. Advair Diskus 01/24/2006 - Hx Inhaler 250mcg; 1Sample 1 puff bid 786.2 Silcoff, 02/07/2006 50mcg Juliocesar Carter PT Referral For 09/27/2005 - Hx evaluate and 729.5 Silcoff, Left Hamstring 03/15/2006 treatRaul Pain modalities M.DBrendan prn Ambien CR 06/09/2005 - Hx 12.5mg 30units 1 po qhs prn 307.41 Silcoff, 01/26/2008 for sleep Juliocesar Carter 780.52 Triamcinolone 02/02/2005 - Hx Cream 0.1% 15gm apply to 691.8 Silcoyuriy, Acetonide 01/26/2008 affected area Raul, on left heel M.D. bid until clear Ambien 11/17/2004 - Hx Tablets 10mg 30tabs 1/2-1 qhs po 307.41 Silcoff, 06/09/2005 hs prn for Raul, sleep when M.DBrendan travelling [place] Diamox 10/29/2003 - Hx Tablets 250mg 30tabs 2 po qd as 993.2 Silcoff, 01/26/2008 directed Raul, starting M.D. 24hrs prior to arrival at [place], continue for 48hrs after reaching max. altitude Allopurinol - Hx Tablets 100mg 90tabs 1 po qd 274.9 Silcoff, 02/09/2008 Juliocesar Carter Isoniazid - Hx Tablets 300mg 1 po qd Unknown 10/29/2003 Naproxen Sodium - Hx Tablets 220mg prn For Unknown 05/25/2004 Muscle Pain Immunizations CPT Code Status Date Vaccine Lot # [id number] Given 03/10/2017 Influenza Vaccine Split Virus Preservative Free [place] Use 95981 Given 03/14/2015 Prevnar 13 [id number] 40440 Given 06/15/2013 Adacel or Boostrix, TDaP [id number] 26223 Given 04/19/2011 Flu, Split Virus 3Yrs 72902 Given 02/18/2010 Pneumococcal Immunization [id number] 72901 Given 01/26/2008 Zostavax [id number] 28438 Given 06/27/2002 Td Immunization 62674 Given 06/27/2002 Flu, Split Virus 3Yrs 23895 Given 06/27/1989 Hepatitis B Immunization Vital Signs Date Vital Result Comment 09/12/2017 BP Systolic 138 mmHg BP Diastolic 82 mmHg BP Systolic Recheck 126 mmHg R Arm Sitting BP Diastolic Recheck 76 mmHg R Arm Sitting Height 69.25 inches 5'9.25" Weight 190.00 lb BMI (Body Mass Index) 27.9 kg/m2 03/22/2017 BP Systolic 130 mmHg BP Diastolic 70 mmHg Height 68.75 inches 5'8.75" Weight 185.00 lb BMI (Body Mass Index) 27.5 kg/m2 07/30/2016 BP Systolic 138 mmHg BP Diastolic 82 mmHg BP Systolic Recheck 126 mmHg R arm sitting BP Diastolic Recheck 76 mmHg R arm sitting Height 69.25 inches 5'9.25" Weight 191.00 lb BMI (Body Mass Index) 28.0 kg/m2 10/02/2015 BP Systolic 118 mmHg BP Diastolic 64 mmHg 09/10/2015 BP Systolic 120 mmHg BP Diastolic 78 mmHg Heart Rate 68 /min reg Weight 188.00 lb 07/28/2015 BP Systolic 126 mmHg BP Diastolic 70 mmHg Height 69 inches 5'9" Weight 188.00 lb BMI (Body Mass Index) 27.8 kg/m2 03/14/2015 BP Systolic 120 mmHg BP Diastolic 64 mmHg Weight 185.00 lb 10/15/2014 BP Systolic 122 mmHg BP Diastolic 88 mmHg Height 69 inches 5'9" Weight 185.00 lb BMI (Body Mass Index) 27.3 kg/m2 06/18/2014 BP Systolic 120 mmHg BP Diastolic 78 mmHg Height 69.50 inches 5'9.50" Weight 186.00 lb BMI (Body Mass Index) 27.1 kg/m2 07/30/2013 BP Systolic 140 mmHg BP Diastolic 82 mmHg Weight 186.00 lb 06/15/2013 BP Systolic 108 mmHg BP Diastolic 76 mmHg Height 69.5 inches 5'9.50" Weight 183.50 lb BMI (Body Mass Index) 26.7 kg/m2 06/13/2012 BP Systolic 120 mmHg BP Diastolic 70 mmHg Heart Rate 68 /min reg Respiratory Rate 12 /min not laboured Height 69.50 inches 5'9.50" Weight 180.00 lb BMI (Body Mass Index) 26.2 kg/m2 10/21/2011 BP Systolic 112 mmHg BP Diastolic 72 mmHg Weight 180.00 lb 07/21/2011 BP Systolic 106 mmHg BP Diastolic 72 mmHg Weight 181.00 lb 06/02/2011 BP Systolic 126 mmHg BP Diastolic 70 mmHg Heart Rate 60 /min reg Respiratory Rate 12 /min not laboured 05/03/2011 BP Systolic 128 mmHg BP Diastolic 78 mmHg Heart Rate 60 /min reg Respiratory Rate 12 /min not laboured Body Temperature 98.4 F Height 69.50 inches 5'9.50" Weight 183.00 lb BMI (Body Mass Index) 26.6 kg/m2 05/11/2010 BP Systolic 114 mmHg BP Diastolic 68 mmHg Weight 188.00 lb 02/18/2010 BP Systolic 122 mmHg BP Diastolic 76 mmHg Heart Rate 56 /min reg Respiratory Rate 12 /min not laboured Height 69 inches 5'9" Weight 180.00 lb BMI (Body Mass Index) 26.6 kg/m2 Last Menstrual Period 0 06/17/2009 BP Systolic 100 mmHg BP Diastolic 78 mmHg Weight 184.00 lb Last Menstrual Period 0 03/21/2009 BP Systolic 104 mmHg BP Diastolic 76 mmHg Weight 182.00 lb Last Menstrual Period 0 03/13/2009 BP Systolic 112 mmHg BP Diastolic 64 mmHg Body Temperature 98.4 F Weight 184.00 lb 02/17/2009 BP Systolic 100 mmHg BP Diastolic 74 mmHg Height 69 inches 5'9" Weight 180.00 lb BMI (Body Mass Index) 26.6 kg/m2 Last Menstrual Period 0 12/02/2008 BP Systolic 112 mmHg BP Diastolic 68 mmHg Weight 184.00 lb Last Menstrual Period 0 01/26/2008 BP Systolic 94 mmHg BP Diastolic 64 mmHg Height 69.3 inches 5'9.30" Weight 178.00 lb BMI (Body Mass Index) 26.1 kg/m2 Last Menstrual Period 0 08/19/2006 BP Systolic 120 mmHg BP Diastolic 76 mmHg Height 69 inches 5'9" Weight 185.00 lb BMI (Body Mass Index) 27.3 kg/m2 03/15/2006 BP Systolic 104 mmHg BP Diastolic 62 mmHg Body Temperature 97.7 F Height 69 inches 5'9" Weight 182.00 lb BMI (Body Mass Index) 26.9 kg/m2 01/24/2006 BP Systolic 104 mmHg BP Diastolic 66 mmHg Respiratory Rate 12 /min not laboured Body Temperature 97.6 F Height 69 inches 5'9" Weight 185.00 lb BMI (Body Mass Index) 27.3 kg/m2 09/27/2005 BP Systolic 102 mmHg BP Diastolic 66 mmHg Height 69 inches 5'9" Weight 186.00 lb BMI (Body Mass Index) 27.5 kg/m2 08/02/2005 BP Systolic 116 mmHg BP Diastolic 82 mmHg Height 69 inches 5'9" Weight 186.00 lb BMI (Body Mass Index) 27.5 kg/m2 02/02/2005 BP Systolic 110 mmHg BP Diastolic 78 mmHg Height 69 inches 5'9" Weight 183.00 lb BMI (Body Mass Index) 27.0 kg/m2 11/17/2004 BP Systolic 104 mmHg BP Diastolic 66 mmHg Height 69 inches 5'9" Weight 184.00 lb BMI (Body Mass Index) 27.2 kg/m2 08/21/2004 BP Systolic 108 mmHg BP Diastolic 70 mmHg Height 69 inches 5'9" Weight 187.00 lb BMI (Body Mass Index) 27.6 kg/m2 08/05/2004 BP Systolic 110 mmHg BP Diastolic 72 mmHg Heart Rate 60 /min reg Height 69 inches 5'9" Weight 186.00 lb BMI (Body Mass Index) 27.5 kg/m2 05/25/2004 Height 69 inches 5'9" Weight 184.00 lb BMI (Body Mass Index) 27.2 kg/m2 10/29/2003 BP Systolic 128 mmHg R Arm BP Diastolic 70 mmHg R Arm Height 69 inches 5'9" Weight 180.00 lb BMI (Body Mass Index) 26.6 kg/m2 05/08/2003 BP Systolic 128 mmHg BP Diastolic 80 mmHg Heart Rate 64 /min reg Respiratory Rate 12 /min Height 68.5 inches 5'8.50" Weight 177.00 lb BMI (Body Mass Index) 26.5 kg/m2 05/08/2003 BP Systolic 140 mmHg BP Diastolic 76 mmHg Height 68.6 inches 5'8.60" Weight 177.00 lb BMI (Body Mass Index) 26.4 kg/m2 Last Menstrual Period 0 Results Test Date Test Result H/L Range Note Laboratory test finding 04/30/2017 PSA Diagnostic 6.785 ng/mL High 0- 4.000 1 Lipid Profile (Trig/Chol/HDL) 04/30/2017 Triglycerides 135 mg/dL 2 Cholesterol 140 mg/dL 3 HDL Cholesterol 38.4 mg/dL 4 LDL Cholesterol 75 mg/dL 5 Laboratory test finding 04/30/2017 Uric Acid 4.7 mg/dL 4.4-7.6 6 Laboratory test finding 01/12/2017 Rast Honeybee Venom 70.2 kU/L 7 Rast Paperwasp Venom 0.54 kU/L 8 Rast White Face Hornet 0.76 kU/L 9 Rast Yellow Hornet 1.03 kU/L 10 Rast Yellow Jacket 2.17 kU/L 11 Tryptase 1.1 ng/mL <11.5 12 Laboratory test finding 12/22/2016 Troponin-I (TnI) 0.03 ng/mL <0.04 Comp Metabolic Panel 12/22/2016 Sodium 140 mmol/L 133-145 Potassium 3.4 mmol/L Low 3.5-5.0 Chloride 104 mmol/L 101-111 Co2 Carbon Dioxide 29 mmol/L 22-32 Anion Gap 7 mmol/L 2-11 Glucose 110 mg/dL High 70-100 Blood Urea Nitrogen 28 mg/dL High 6-24 Creatinine 1.16 mg/dL 0.67-1.17 BUN/Creatinine Ratio 24.1 High 8-20 Calcium 9.6 mg/dL 8.6-10.3 Total Protein 6.9 g/dL 6.4-8.9 Albumin 4.0 g/dL 3.2-5.2 Globulin 2.9 g/dL 2-4 Albumin/Globulin Ratio 1.4 1-3 Total Bilirubin 1.10 mg/dL High 0.2-1.0 Alkaline Phosphatase 63 U/L 34-104 Alt 30 U/L 7-52 Ast 18 U/L 13-39 Egfr Non- 61.9 >60 Egfr 79.6 >60 13 CBC Auto Diff 12/22/2016 White Blood Count 11.9 10^3/uL High 3.5-10.8 Red Blood Count 4.97 10^6/uL 4.0-5.4 Hemoglobin 15.7 g/dL 14.0-18.0 Hematocrit 48 % 42-52 Mean Corpuscular Volume 97 fL High 80-94 Mean Corpuscular Hemoglobin 32 pg High 27-31 Mean Corpuscular HGB Conc 33 g/dL 31-36 Red Cell Distribution Width 14 % 10.5-15 Platelet Count 218 10^3/uL 150-450 Mean Platelet Volume 9 um3 7.4-10.4 Abs Neutrophils 9.1 10^3/uL High 1.5-7.7 Abs Lymphocytes 1.9 10^3/uL 1.0-4.8 Abs Monocytes 0.9 10^3/uL High 0-0.8 Abs Eosinophils 0 10^3/uL 0-0.6 Abs Basophils 0 10^3/uL 0-0.2 Abs Nucleated RBC 0 10^3/uL Granulocyte % 76.7 % 38-83 Lymphocyte % 15.8 % Low 25-47 Monocyte % 7.2 % 1-9 Eosinophil % 0.1 % 0-6 Basophil % 0.2 % 0-2 Nucleated Red Blood Cells % 0 Laboratory test finding 12/22/2016 Lactic Acid 1.2 mmol/L 0.5-2.0 14 Inr/Protime 12/22/2016 Inr 0.95 0.89-1.11 Urinalysis Profile 12/22/2016 Urine Color Yellow Urine Appearance Cloudy Urine Specific [place] 1.024 1.010-1.030 Urine pH 6.0 5-9 Urine Urobilinogen Negative Negative Urine Ketones Trace Negative Urine Protein Negative Negative Urine Leukocytes Negative Negative Urine Blood Negative Negative * * Negative 15 Urine Nitrite Negative Negative Urine Bilirubin Negative Negative Urine Glucose Negative Negative Laboratory test finding 06/02/2016 PSA Diagnostic 5.480 ng/mL High 0- 4.000 16 Lipid Profile (Trig/Chol/HDL) 06/02/2016 Triglycerides 111 mg/dL 17 Cholesterol 124 mg/dL 18 HDL Cholesterol 31.7 mg/dL 19 LDL Cholesterol 70 mg/dL 20 Laboratory test finding 06/02/2016 Uric Acid 5.5 mg/dL 4.4-7.6 21 Laboratory test finding 01/12/2016 PSA Diagnostic 5.214 ng/mL High 0-4.0 22 Lipid Profile (Trig/Chol/HDL) 01/12/2016 Triglycerides 131 mg/dL 23 Cholesterol 151 mg/dL 24 HDL Cholesterol 39.7 mg/dL 25 LDL Cholesterol 85 mg/dL 26 Laboratory test 01/12/2016 Alt (SGPT) 37 U/L 7-52 27 finding Xray 10/02/2015 X-Ray, Finger[S], Min. Of mallet finger w 2 Views, LT avuf Lipid Profile 07/19/2015 Triglycerides 79 mg/dL 28 (Trig/Chol/HDL) Cholesterol 148 mg/dL 29 HDL Cholesterol 42.4 mg/dL 30 LDL Cholesterol 90 mg/dL 31 Laboratory test finding 07/19/2015 Uric Acid 5.1 mg/dL 4.4-7.6 PSA Diagnostic 6.154 ng/mL High 0-4.000 32 Lipid Profile (Trig/Chol/HDL) 03/10/2015 Triglycerides 121 mg/dL 33 Cholesterol 158 mg/dL 34 HDL Cholesterol 41.0 mg/dL 35 LDL Cholesterol 93 mg/dL 36 Laboratory test 03/10/2015 Alt (SGPT) 35 U/L 7-52 37 finding Laboratory test 10/29/2014 PSA Diagnostic 7.900 ng/mL High 0-4.0 38 finding Laboratory test 10/16/2014 LDL Cholesterol Direct 90 mg/dL 39 finding LDL & HDL Particle 10/16/2014 Total LDL Particle Conc 1260 nmol/L &lt ;1300 Concentr NMR W/Lipids Small LDL Particle Conc 742 nmol/L High <=527 Total HDL Particle Conc 29.2 mcmol/L Low >=30.5 Large HDL Particle Conc < 1.3 mcmol/L Low >=4.8 Interpretation See Comment 40 Cholesterol,Total,CDC,P 149 mg/dL 41 Triglycerides,CDC,P 97 mg/dL 42 HDL,Cholesterol,CDC,P 41 mg/dL G009 Calculated LDL 89 mg/dL 43 Non-HDL Cholesterol 108 mg/dL 44 Lipid Profile (Trig/Chol/HDL) 10/11/2014 Triglycerides 94 mg/dL 45 Cholesterol 146 mg/dL 46 HDL Cholesterol 37.8 mg/dL 47 LDL Cholesterol 89 mg/dL 48 Laboratory test finding 10/11/2014 Alt 38 U/L 7-52 Laboratory test finding 10/11/2014 Lipoprotein Profile Apo 17 mg/dL < =30 49 a Laboratory test finding 07/22/2014 LDL Cholesterol Direct 162 mg/dL 50 , 51 Reference Lab Test See Comment 50, 52 Miscellaneous Test 07/22/2014 Test Name LIPOPROT MET PRO <SEE NOTE> 50, 53 Result SEE COMMENT 50, 54 Laboratory test finding 05/04/2014 PSA Diagnostic 5.687 ng/mL High 0-4.0 55 Surgical Pathology 10/02/2013 S RUN DATE: <SEE NOTE> Laboratory test finding 07/28/2013 Alt 46 U/L 14-54 57 Lipid Profile 07/28/2013 Triglycerides 76 mg/dL 40-200 (Trig/Chol/HDL) Cholesterol 217 mg/dL High Less than 200 HDL Cholesterol 46 mg/dL 40-60 58 Cholesterol/HDL Ratio 4.7 Average High 1-4.44 LDL Cholesterol 155.8 High Less Than 100 59 Laboratory test finding 07/28/2013 PSA Diagnostic 5.564 ng/mL High 0- 4.000 60 Hepatitis C Antibody Nonreactive Nonreactive 61 Lipid Profile (Trig/Chol/HDL) 06/07/2013 Triglycerides 98 mg/dL 40-200 Cholesterol 232 mg/dL High Less than 200 HDL Cholesterol 39 mg/dL Low 40-60 62 Cholesterol/HDL Ratio 6.0 Average High 1-4.44 LDL Cholesterol 173.4 High Less Than 100 63 Laboratory test finding 06/07/2013 PSA Diagnostic 4.672 ng/mL High 0- 4.000 64 Uric Acid 5.5 mg/dL 2.6-7.2 65 Lipid Profile (Trig/Chol/HDL) 06/07/2012 Triglycerides 92 mg/dL 40-200 Cholesterol 195 mg/dL Less than 200 HDL Cholesterol 34 mg/dL Low 40-60 66 Cholesterol/HDL Ratio 5.7 Average High 1-4.44 LDL Cholesterol 142.6 mg/dL High Less Than 100 67 Laboratory test finding 06/07/2012 PSA Diagnostic 3.1 ng/mL 0-4.0 68 Uric Acid 5.8 mg/dL 2.6-7.2 Lipid Profile (Trig/Chol/HDL) 05/24/2011 Triglyceride 114 mg/dL 40-200 Cholesterol 185 mg/dL Less Than 200 69 High Density Lipoprotein 34 mg/dL Low 40-60 70 Cholesterol/HDL Ratio 5.44 AVERAGE High 1-4.97 Low Density Lipoprotein 128 mg/dL High Less Than 100 71 Laboratory test finding 05/24/2011 PSA,Diagnostic 3.61 NG/ML 0-4 72 Uric Acid 4.7 mg/dL 2.6-7.2 Throat-Beta Strept 04/26/2011 Throat-Beta Strep Culture NF 73 Laboratory test finding 02/10/2010 PSA Screening 2.92 NG/ML 0-4 74 Lipid Profile 02/10/2010 Triglyceride 147 mg/dL 40-200 (Trig/Chol/HDL) Cholesterol 190 mg/dL Less Than 200 75 High Density Lipoprotein 32 mg/dL Low 40-60 76 Cholesterol/HDL Ratio 5.94 AVERAGE High 1-4.97 Low Density Lipoprotein 129 mg/dL High Less Than 100 77 Laboratory test finding 02/10/2010 Uric Acid 5.0 mg/dL 2.6-7.2 Laboratory test finding 03/18/2009 Uric Acid 5.0 mg/dL 2.6-7.2 Laboratory test finding 02/12/2009 PSA Screening 3.31 NG/ML 0-4 78, 79 Lipid Profile (Trig/Chol/HDL) 02/12/2009 Triglyceride 111 mg/dL 40-200 78 Cholesterol 189 mg/dL Less Than 200 78, 80 High Density Lipoprotein 32 mg/dL Low 40-60 78, 81 Cholesterol/HDL Ratio 5.91 AVERAGE High 1-4.97 78 Low Density Lipoprotein 135 mg/dL High Less Than 100 78, 82 Laboratory test finding 02/12/2009 Uric Acid 6.7 mg/dL 2.6-7.2 78 Surgical Pathology 09/12/2008 Surgical Pathology Prostate CA 83 Laboratory test finding 08/27/2008 PSA,Diagnostic 3.40 NG/ML 0-4 84 Laboratory test finding 02/23/2008 Uric Acid 5.8 mg/dL 2.6-7.2 Laboratory test finding 02/09/2008 Surgical Pathology Jesse keratosis 85 Laboratory test finding 01/26/2008 PSA Screening 2.90 NG/ML 0-4 86 Lipid Profile 01/26/2008 Triglyceride 145 mg/dL 40-200 (Trig/Chol/HDL) Cholesterol 231 mg/dL High Less Than 200 87 High Density Lipoprotein 38 mg/dL Low 40-60 88 Cholesterol/HDL Ratio 6.08 AVERAGE High 1-4.97 Low Density Lipoprotein 164 mg/dL High Less Than 100 89 Laboratory test finding 01/26/2008 Uric Acid 6.2 mg/dL 2.6-7.2 CMP 12/14/2007 Sodium 140 mmol/L 135-145 Potassium 3.9 mmol/L 3.5-5.0 Chloride 107 mmol/L 101-111 Co2 (Carbon Dioxide) 28.6 mmol/L 22-32 Anion Gap 4.4 mmol/L 2-11 90 Glucose 107 mg/dL High 70-105 BUN 17 mg/dL 6-24 Creatinine 1.16 mg/dL 0.5-1.4 One Over Creatinine 0.80 BUN/Creatinine Ratio 14.7 8-20 Calcium 9.4 mg/dL 8.1-9.9 91 Total Protein 7.7 GM/DL 6.2-8.1 Albumin 3.9 GM/DL 3.2-5.2 Globulin 3.8 GM/DL 2-4 Albumin/Globulin Ratio 1.0 1-3 Bilirubin Total 1.3 mg/dL 0.4-1.5 Alkaline Phosphatase 93 U/L 39-117 Alt (SGPT) 33 U/L 17-63 Ast (Sgot) 25 U/L 12-42 Laboratory test finding 12/14/2007 Amylase Stat 79 U/L 30-125 Lipase 19 U/L Low 22-51 CBC With Manual Diff Stat 12/14/2007 White Blood Count 11.4 CUMM High 4.8- 10.8 Red Cell Count 5.09 CUMM 4.6-6.2 Hemoglobin 16.4 g/dL 14.0-18.0 Hematocrit 47 % 42-52 Mean Corpuscular Volume 93 um3 80-94 Mean Corpuscular Hemoglob 32 pg High 27-31 Mean Corpuscular HGB Cone 35 g/dL 32-36 Redcell Distribution WDTH 13 % 10.5-15 Platelet Count 225 CUMM 150-450 Mean Platelet Volume 8.1 um3 7.4-10.4 Polysegmented Neutrophil 75 % 38-83 Lymphocyte 15 % 5-47 Monocyte 4 % 0-13 Eosenophil 5 % 0-6 Basophil 1 % 0-2 Absolute Neutrophil Count 8.5 RBC Morphology NORMAL Laboratory test finding 09/28/2006 Potassium 4.3 mmol/L 3.5-5.0 PSA Screening 2.04 NG/ML 0.01-4.0 92 Protime W/Inr 01/31/2006 Inr 1.03 93 Protime 12.0 SEC 10.5-13.1 Laboratory test finding 01/31/2006 PTT (Aptt) 24.8 20.4-29.5 94 CBC With Electronic Diff 01/13/2006 White Blood Count 6.7 CUMM 4.8-10.8 Abs Basophils 0.1 0-0.2 Abs Eosinophils 0.4 0-0.6 Absolute Neutrophil Count 3.9 1.5-7.7 Abs Lymphs 1.6 1.0-4.8 Abs Mononuclear 0.8 0-0.8 Basophil % 0.8 % 0-2 Hematocrit 48 % 42-52 Hemoglobin 16.7 g/dL 14.0-18.0 Eosinophil % 5.6 % 0-6 Gran % 58.7 % 38-83 Lymph % 23.6 % 20-45 Mean Corpuscular HGB Cone 35 g/dL 32-36 Mean Corpuscular Hemoglob 32 pg High 27-31 Mean Corpuscular Volume 94 um3 80-94 Mean Platelet Volume 8.1 um3 7.4-10.4 Mononuclear % 11.3 % High 1-9 Platelet Count 243 CUMM 150-450 Red Cell Count 5.16 CUMM 4.6-6.2 Redcell Distribution WDTH 14 % 10.5-15 Basic Metabolic Panel 01/13/2006 One Over Creatinine 0.83 Anion Gap 5.0 mmol/L 2-11 95 BUN 20 mg/dL 6-24 Calcium 9.5 mg/dL 8.7-10.2 Chloride 107 mmol/L 101-111 Co2 (Carbon Dioxide) 28.0 mmol/L 22-32 Glucose 99 mg/dL 70-105 Potassium 4.1 mmol/L 3.5-5.0 Sodium 140 mmol/L 135-145 BUN/Creatinine Ratio 16.7 8-20 Creatinine 1.2 mg/dL 0.5-1.4 Laboratory test finding 11/04/2004 Uric Acid 6.3 mg/dL 2.6-7.2 Lipid Profile 08/21/2004 Cholesterol/HDL 5.62 AVERAGE High 1-4.97 (Trig/Chol/HDL) Ratio Cholesterol 219 mg/dL High Less Than 200 96 Triglyceride 147 mg/dL 40-200 High Density Lipoprotein 39 mg/dL Low 40-60 97 Low Density Lipoprotein 151 mg/dL High Less Than 100 98 Laboratory test finding 08/21/2004 PSA Screening 2.3 NG/ML 0-4 99 Uric Acid 7.2 mg/dL 2.6-7.2 Basic Metabolic Panel 08/05/2004 Anion Gap 9.0 mmol/L 2-11 100 BUN 21 mg/dL 6-24 Calcium 10.3 mg/dL High 8.7-10.2 Chloride 103 mmol/L 101-111 Co2 (Carbon Dioxide) 32.0 mmol/L 22-32 Creatinine 1.2 mg/dL 0.5-1.4 Glucose 84 mg/dL 70-105 Potassium 4.2 mmol/L 3.5-5.0 Sodium 144 mmol/L 135-145 BUN/Creatinine Ratio 17.5 8-20 Laboratory test finding 08/05/2004 Uric Acid 6.7 mg/dL 2.6-7.2 CBC With Electronic Diff 08/05/2004 White Blood Count 6.2 CUMM 4.8-10.8 Abs Basophils 0.1 0-0.2 Abs Eosinophils 0.4 0-0.6 Abs Grans 2.9 1.5-7.7 Abs Lymphs 2.2 1.0-4.8 Abs Mononuclear 0.7 0-0.8 Basophil % 0.8 % 0-2 Hematocrit 49 % 42-52 Hemoglobin 16.6 g/dL 14.0-18.0 Eosinophil % 6.1 % High 0-6 Gran % 46.2 % 38-83 Lymph % 35.9 % 20-45 Mean Corpuscular HGB Cone 34 g/dL 32-36 Mean Corpuscular Hemoglob 31 pg 27-31 Mean Corpuscular Volume 93 um3 80-94 Mean Platelet Volume 8.6 um3 7.4-10.4 Mononuclear % 11.0 % High 1-9 Platelet Count 262 CUMM 150-450 Red Cell Count 5.30 CUMM 4.6-6.2 Redcell Distribution WDTH 13 % 10.5-15 1 Serum levels of PSA measured using the Arianna Claudia DXI Hybritech immunoassay should not be interpreted as absolute evidence of the presence or absence of disease. The PSA value should be used in conjunction with other pertinent clinical diagnostic procedures. The values obtained with different assay methods or kits cannot be used interchangeably. 2 Desirable: <150 Borderline High: 150-199 High: 200-499 Very High: >500 3 Desirable: <200 Borderline High: 200-239 High: >239 4 Low: <40 Desirable: 40-60 High: >60 5 Desirable: <100 Near Optimal: 100-129 Borderline High: 130-159 High: 160-189 Very High: >189 6 FASTING 12 HOUR Copy Result to: CHNADU SORIANO ([id number]) 7 Class 5 (Strongly Positive 50.0-99.9) Test Performed by: [place] [address] 8 Class 1 (Equivocal 0.35-0.69) Test Performed by: [place] [address] 9 Class 2 (Positive 0.70-3.49) Test Performed by: [place] [address] 10 Class 2 (Positive 0.70-3.49) Test Performed by: [place] [address] 11 Class 2 (Positive 0.70-3.49) Test Performed by: [place] [address] 12 Test Performed by: [place] [address] 13 Because ethnic data is not always readily available, this report includes an eGFR for both -Americans and non- Americans. The National Kidney Disease Education Program (NKDEP) does not endorse the use of the MDRD equation for patients that are not between the ages of 18 and 70, are , have extremes of body size, muscle mass, or nutritional status, or are non- or non-. According to the National Kidney Foundation, irrespective of diagnosis, the stage of the disease is based on the level of kidney function: Stage Description GFR(mL/min/1.73 m(2)) 1 Kidney damage with normal or decreased GFR 90 2 Kidney damage with mild decrease in GFR 60-89 3 Moderate decrease in GFR 30-59 4 Severe decrease in GFR 15-29 5 Kidney failure <15 (or dialysis) 14 [facility] Severe Sepsis and Septic Shock Management Bundle Measure requires all lactic acids initially measuring >2.0 mmol/L be repeated. 15 *Ascorbic acid is present which may interfere with detection of blood. 16 Serum levels of PSA measured using the Symbios [employer] Venture DXI Hybritech immunoassay should not be interpreted as absolute evidence of the presence or absence of disease. The PSA value should be used in conjunction with other pertinent clinical diagnostic procedures. The values obtained with different assay methods or kits cannot be used interchangeably. 17 Desirable <150 Borderline high 150-199 High 200-499 Very High >500 18 Desirable <200 Borderline high 200-239 High >239 19 Low <40 Desirable: 40-60 High: >60 20 Desirable: <100 mg/dL Near Optimal: 100-129 mg/dL Borderline High: 130-159 mg/dL High: 160-189 mg/dL Very High: >189 mg/dL 21 FASTING 12 HOUR Copy Result to: CHANDU SORIANO ([id number]) 22 Serum levels of PSA measured using the Symb[employer] ATM Venture DXI Hybritech immunoassay should not be interpreted as absolute evidence of the presence or absence of disease. The PSA value should be used in conjunction with other pertinent clinical diagnostic procedures. The values obtained with different assay methods or kits cannot be used interchangeably. 23 Desirable <150 Borderline high 150-199 High 200-499 Very High >500 24 Desirable <200 Borderline high 200-239 High >239 25 Low <40 Desirable: 40-60 High: >60 26 Desirable: <100 mg/dL Near Optimal: 100-129 mg/dL Borderline High: 130-159 mg/dL High: 160-189 mg/dL Very High: >189 mg/dL 27 FASTING 12 HOUR 28 Desirable <150 Borderline high 150-199 High 200-499 Very High >500 29 Desirable <200 Borderline high 200-239 High >239 30 Low <40 Desirable: 40-60 High: >60 31 Desirable: <100 mg/dL Near Optimal: 100-129 mg/dL Borderline High: 130-159 mg/dL High: 160-189 mg/dL Very High: >189 mg/dL 32 Serum levels of PSA measured using the Telekenex Claudia DXI Hybritech immunoassay should not be interpreted as absolute evidence of the presence or absence of disease. The PSA value should be used in conjunction with other pertinent clinical diagnostic procedures. The values obtained with different assay methods or kits cannot be used interchangeably. 33 Desirable <150 Borderline high 150-199 High 200-499 Very High >500 34 Desirable <200 Borderline high 200-239 High >239 35 Low <40 Desirable: 40-60 High: >60 36 Desirable: <100 mg/dL Near Optimal: 100-129 mg/dL Borderline High: 130-159 mg/dL High: 160-189 mg/dL Very High: >189 mg/dL 37 FASTING 12 HOUR 38 Serum levels of PSA measured using the Symb[employer] ATM Venture DXI Hybritech immunoassay should not be interpreted as absolute evidence of the presence or absence of disease. The PSA value should be used in conjunction with other pertinent clinical diagnostic procedures. The values obtained with different assay methods or kits cannot be used interchangeably. 39 Desirable: <100 mg/dL Near Optimal: 100-129 mg/dL Borderline High: 130-159 mg/dL High: 160-189 mg/dL Very High: >189 mg/dL 40 Elevated LDL particle concentrations are associated with increased risk for cardiovascular disease. Small LDL-P has been associated with CVD risk with this methodology but not after LDL-P has been taken into account. Statins effectively reduce the number of LDL particles, but do not generally influence the size distribution of the LDL particles. Fibrates and niacin have been shown to increase LDL particle size. In some studies, HDL particle concentration has been shown to be inversely associated with cardiovascular risk. ADDITIONAL INFORMATION Laboratory Developed Test Small LDL, Total HDL and Large HDL Particle Concentrations were validated by [employer] and the [facility] laboratory at the [facility]. NMR spectra are generated at [facility], [address] [place] [address] and results calculated by [employer] [address] [place] [address] 41 REFERENCE VALUE Desirable: < 200 Borderline high: 200 - 239 High: > cb=333 42 REFERENCE VALUE Normal: <150 Borderline high: 150-199 High: 200-499 Very high: > xy=981 43 REFERENCE VALUE Desirable: <100 Above Desirable: 100-129 Borderline high: 130-159 High: 160-189 Very high: > xv=735 44 REFERENCE VALUE Desirable: <130 Above Desirable: 130-159 Borderline high: 160-189 High: 190-219 Very high: > bq=778 Test Performed by: [facility] - [address] [address] [employer]: Gary Childers II, M.D., Ph.D. 45 Desirable <150 Borderline high 150-199 High 200-499 Very High >500 46 Desirable <200 Borderline high 200-239 High >239 47 Low <40 Desirable: 40-60 High: >60 48 Desirable: <100 mg/dL Near Optimal: 100-129 mg/dL Borderline High: 130-159 mg/dL High: 160-189 mg/dL Very High: >189 mg/dL 49 Test Performed by: [facility] - [address] [address] [employer]: Gary Childers II, M.D., Ph.D. 50 FASTING 12 HOUR~Please also do LDL particle concentration (LDL particle~subtyping). 51 Desirable <100 Near Optimal 100-129 Borderline high 130-159 High 160-189 Very High >189 52 Test Result Flag Unit RefValue LDL Particles NMR w/ Lipids, P Total LDL Particle 1685 H nmol/L <1300 Concentration Interpretation See Comment Elevated LDL particle concentrations are associated with increased risk for cardiovascular disease. Small LDL-P has been associated with CVD risk with this methodology but not after LDL-P has been taken into account. Statins effectively reduce the number of LDL particles, but do not generally influence the size distribution of the LDL particles. Fibrates and niacin have been shown to increase LDL particle size. Cholesterol, Total, CDC, P 214 mg/dL REFERENCE VALUE NCEP guidelines (ages 18y and up) Desirable: <200 Borderline high: 200-239 High: > ah=558 Triglycerides, CDC, P 123 mg/dL REFERENCE VALUE NCEP guidelines (ages 18y and up) Normal: <150 Borderline high: 150-199 High: 200-499 Very high: > wd=013 HDL Cholesterol, CDC, P 45 mg/dL REFERENCE VALUE NCEP guidelines (ages 18y and up) Low: <40 Normal: 40-59 High : > or=60 Calculated LDL 144 mg/dL REFERENCE VALUE NCEP guidelines (ages 18y and up) Optimal: <100 Near Optimal: 100-129 Borderline high: 130-159 High: 160-189 Very high: > cs=330 Non-HDL Cholesterol 169 H mg/dL REFERENCE VALUE NCEP guidelines Desirable: <130 Borderline high: 130-159 High: 160-189 Very high: > ch=831 Test Performed by: [facility] [place] [address] [employer]: Castillo Mon M.D. 53 LIPOPROT MET PROF 54 LDL Particles NMR w/ Lipids, P LDL Particles NMR, P TEST FLAG/RESULTS UNIT REF Total LDL Particle Conc. H 1685 nmol/L <1300 Interpretation Elevated LDL particle concentrations are associated with increased risk for cardiovascular disease. Small LDL-P has been associated with CVD risk with this methodology but not after LDL-P has been taken into account. Statins effectively reduce the number of LDL particles, but do not generally influence the size distribution of the LDL particles. Fibrates and niacin have been shown to increase LDL particle size. Cholesterol, Total, CDC, P 214 mg/dL REFERENCE VALUE NCEP guidelines (ages 18y and up) Desirable: <200 Borderline high: 200-239 High: > qf=741 Triglycerides, CDC, P 123 mg/dL REFERENCE VALUE NCEP guidelines (ages 18y and up) Normal: <150 Borderline high: 150-199 High: 200-499 Very high: > pq=458 HDL Cholesterol, CDC, P 45 mg/dL REFERENCE VALUE NCEP guidelines (ages 18y and up) Low: <40 Normal: 40-59 High : > or=60 Calculated LDL 144 mg/dL REFERENCE VALUE NCEP guidelines (ages 18y and up) Optimal: <100 Near Optimal: 100-129 Borderline high: 130-159 High: 160-189 Very high: > js=437 Non-HDL Cholesterol H 169 mg/dL REFERENCE VALUE NCEP guidelines Desirable: <130 Borderline high: 130-159 High: 160-189 Very high: > gz=920 Test Performed by: [facility] [address] [address] [employer]: Castillo Mon M.D. 55 Serum levels of PSA measured using the Arianna Claudia DXI Hybritech immunoassay should not be interpreted as absolute evidence of the presence or absence of disease. The PSA value should be used in conjunction with other pertinent clinical diagnostic procedures. The values obtained with different assay methods or kits cannot be used interchangeably. 56 RUN DATE: 10/03/13 [facility] LAB LIVE PAGE 1 RUN TIME: [address] [place] [address] Specimen Inquiry Name: JESUS HEARD : [address]: Chandu Soriano MD Acct: [id number] Unit: [id number] AGE: 68 Location: [facility] Re10/02/13 SEX: M Status: REG REF SPEC: [id number] CLEMENTE: 10/02/13 [facility] DR: Chandu Soriano MD REQ: [id number] RECD: 10/02/13 STATUS: CHRISTELLE DUBOIS DR: Raul Downing MD _ ORDERED: LEVEL IV/4 FINAL DIAGNOSIS 1. Prostate, left apex, biopsy: Benign prostatic tissue. 2. Prostate, left base, biopsy: Benign prostatic tissue. 3. Prostate, right apex, biopsy: Focal high grade prostatic intraepithelial neoplasia. 4. Prostate, right base, biopsy: Benign prostatic tissue. CLINICAL HISTORY 09/02 Verito 6 right base, one focus, no treatment done. PRE-OPERATIVE DIAGNOSIS Prostate carcinoma, moderate enlarged prostate. POST-OPERATIVE DIAGNOSIS PSA 5.56 GROSS DESCRIPTION 1) The specimen is received in formalin labeled Jesus Heard, Left Prostate Lobe Pratt and consists of three, rivera, soft tissue cores ranging from 1.0 x 0.1 cm. to 1.9 x 0.1 cm. Submitted entirely, one cassette. CONTINUED ON NEXT PAGE * ML=Testing performed at Main Lab DEPARTMENT OF PATHOLOGY, [address] [place] [address] Danny Coates M.D. Director [facility] Permit #[id number] RUN DATE: 10/03/13 [facility] LAB LIVE PAGE 2 RUN TIME: [address] [place] [address] Specimen Inquiry Patient: JESUS HEARD [id number] (Continued) GROSS DESCRIPTION (Continued) GROSS DESCRIPTION (Continued) 2) The specimen is received in formalin labeled Jesus Terrazasbs, Left Prostate Lobe Base and consists of three, rivera, soft tissue cores ranging from 1.1 x 0.1 cm. to 1.5 x 0.1 cm. Submitted entirely, one cassette. 3) The specimen is received in formalin labeled Jesus Heard, Right Prostate Lobe Pratt and consists of three, rivera, soft tissue cores averaging 1.8 x 0.1 cm. Submitted entirely, one cassette. 4) The specimen is received in formalin labeled jesus Heard, Right Prostate Lobe Base and consists of three, rivera, soft tissue cores ranging 1.0 x 0.1 cm. to 1.5 x 0.1 cm. Submitted entirely, one cassette. Signed (signature on file) Amber Leach MD 03/10 1637 END OF REPORT * ML=Testing performed at Main Lab DEPARTMENT OF PATHOLOGY, [address] [place] [address] Danny Coates M.D. Director [facility] Permit #[id number] [phone] FASTING 12 HOUR 58 HDL Interpretation: Undesirable: High Risk: Less than 40 mg/dL Desirable: Low Risk: Greater than 60 mg/dL 59 LDL Interpretation: Low Risk Optimal Level: LDL Less than 100 mg/dL Near or Above Optimal: LDL 100-129 mg/dL Borderline High Risk: LDL 130-159 mg/dL High Risk: LDL 160-189 mg/dL Very High Risk: LDL Greater than 189 mg/dL 60 Serum levels of PSA measured using the S[employer] Venture DXI Hybritech immunoassay should not be interpreted as absolute evidence of the presence or absence of disease. The PSA value should be used in conjunction with other pertinent clinical diagnostic procedures. The values obtained with different assay methods or kits cannot be used interchangeably. 61 FASTING 12 HOUR 62 HDL Interpretation: Undesirable: High Risk: Less than 40 mg/dL Desirable: Low Risk: Greater than 60 mg/dL 63 LDL Interpretation: Low Risk Optimal Level: LDL Less than 100 mg/dL Near or Above Optimal: LDL 100-129 mg/dL Borderline High Risk: LDL 130-159 mg/dL High Risk: LDL 160-189 mg/dL Very High Risk: LDL Greater than 189 mg/dL 64 Serum levels of PSA measured using the S[employer] ATM Venture DXI Hybritech immunoassay should not be interpreted as absolute evidence of the presence or absence of disease. The PSA value should be used in conjunction with other pertinent clinical diagnostic procedures. The values obtained with different assay methods or kits cannot be used interchangeably. 65 PT IS FASTING 66 HDL Interpretation: Undesirable: High Risk: Less than 40 MG/DL Desirable: Low Risk: Greater than 60 MG/DL 67 LDL Interpretation: Low Risk Optimal Level: LDL Less than 100 MG/DL Near or Above Optimal: LDL 100-129 MG/DL Borderline High Risk: LDL 130-159 MG/DL High Risk: LDL 160-189 MG/DL Very High Risk: LDL Greater than 189 MG/DL 68 Serum levels of PSA measured using the S[employer] ATM Venture DXI Hybritech immunoassay should not be interpreted as absolute evidence of the presence or absence of disease. The PSA value should be used in conjunction with other pertinent clinical diagnostic procedures. The values obtained with different assay methods or kits cannot be used interchangeably. 69 CHOLESTEROL INTERPRETATION: Desirable: Less than 200 MG/DL Borderline-High Risk: 200-239 MG/DL High-Risk: 240 MG/DL and over 70 HDL INTERPRETATION: Undesirable: High Risk: Less than 40 MG/DL Desirable: Low Risk: Greater than 60 MG/DL 71 LDL INTERPRETATION: Low Risk Optimal Level: LDL Less than 100 MG/DL Near or Above Optimal: LDL 100-129 MG/DL Borderline High Risk: LDL 130-159 MG/DL High Risk: LDL 160-189 MG/DL Very High Risk: LDL Greater than 189 MG/DL 72 * SERUM LEVELS OF PSA MEASURED USING THE [employer] ACCESS HYBRITECH IMMUNOASSAY SHOULD NOT BE INTERPRETED ABSOLUTE EVIDENCE OF THE PRESENCE OR ABSENCE OF DISEASE. THE PSA VALUE SHOULD BE USED IN CONJUNCTION WITH OTHER PERTINENT CLINICAL DIAGNOSTIC PROCEDURES. 73 NEGATIVE FOR GROUP A BETA STREPTOCOCCUS 74 * SERUM LEVELS OF PSA MEASURED USING THE [employer] ACCESS HYBRITECH IMMUNOASSAY SHOULD NOT BE INTERPRETED ABSOLUTE EVIDENCE OF THE PRESENCE OR ABSENCE OF DISEASE. THE PSA VALUE SHOULD BE USED IN CONJUNCTION WITH OTHER PERTINENT CLINICAL DIAGNOSTIC PROCEDURES. 75 CHOLESTEROL INTERPRETATION: Desirable: Less than 200 MG/DL Borderline-High Risk: 200-239 MG/DL High-Risk: 240 MG/DL and over 76 HDL INTERPRETATION: Undesirable: High Risk: Less than 40 MG/DL Desirable: Low Risk: Greater than 60 MG/DL 77 LDL INTERPRETATION: Low Risk Optimal Level: LDL Less than 100 MG/DL Near or Above Optimal: LDL 100-129 MG/DL Borderline High Risk: LDL 130-159 MG/DL High Risk: LDL 160-189 MG/DL Very High Risk: LDL Greater than 189 MG/DL 78 FASTING 79 * SERUM LEVELS OF PSA MEASURED USING THE [employer] ACCESS HYBRITECH IMMUNOASSAY SHOULD NOT BE INTERPRETED ABSOLUTE EVIDENCE OF THE PRESENCE OR ABSENCE OF DISEASE. THE PSA VALUE SHOULD BE USED IN CONJUNCTION WITH OTHER PERTINENT CLINICAL DIAGNOSTIC PROCEDURES. 80 CHOLESTEROL INTERPRETATION: Desirable: Less than 200 MG/DL Borderline-High Risk: 200-239 MG/DL High-Risk: 240 MG/DL and over 81 HDL INTERPRETATION: Undesirable: High Risk: Less than 40 MG/DL Desirable: Low Risk: Greater than 60 MG/DL 82 LDL INTERPRETATION: Low Risk Optimal Level: LDL Less than 100 MG/DL Near or Above Optimal: LDL 100-129 MG/DL Borderline High Risk: LDL 130-159 MG/DL High Risk: LDL 160-189 MG/DL Very High Risk: LDL Greater than 189 MG/DL 83 ---- RUN DATE: 09/16/08 [facility] NMI LIVE PAGE 1 RUN TIME: 9 Specimen Inquiry RUN USER: INTERFACE -- Name: JESUS HEARD#: [id number] Status: REG REF Re09/12/08 Age/Sex: 63/M Unit#: [id number] Location: [facility] : [birth year] -- Specimen: [id number] SOUT Spec Date: 09/12/[address]: Chandu ludwig MD Spec Type: SURGICAL P Received: 09/13/08-1027 Copies to: Raul Downing MD SPECIMEN 1) LEFT LOBE PROSTATE BIOPSY APEX (APEX 3) 2) LEFT LOBE PROSTATE BIOPSY BASE (BASE 3) 3) RIGHT LOBE PROSTATE BIOPSY APEX (APEX 3) 4) RIGHT LOBE PROSTATE BIOPSY BASE (BASE 3) HISTORY PRE-OP DIAGNOSIS: Elevated PSA. POST-OP DIAGNOSIS: PSA 3.4 GROSS DESCRIPTION 1) The specimen is received in formalin labelled Jesus Heard, Left Prostate Lobe Pratt and consists of three, rivera, soft tissue cores measuring 2.0 cm., 1.8 cm., and 1.7 x 0.1 cm. Submitted entirely, one cassette. 2) The specimen is received in formalin labelled Jesus Heard, Left Prostate Lobe Base and consists of three, rivera, soft tissue cores measuring 2.0 cm., 2.0 cm., and 2.2 x 0.1 cm. Submitted entirely, one cassette. 3) The specimen is received in formalin labelled Jesus Heard, Right Prostate Lobe Pratt and consists of three, rivera, soft tissue cores measuring 2.0 cm., 2.0 cm., and 1.9 x 0.1 cm. Submitted entirely, one cassette. 4) The specimen is received in formalin labelled Jesus Herad, Right Prostate Lobe Base and consists of three, rivera, soft tissue cores measuring 2.0 cm., 1.3 cm., and 0.8 x 0.1 cm. Submitted entirely, one cassette. DIAGNOSIS 1) Prostate, left apex, core biopsies: A) Benign prostate tissue with partial atrophy and focal acute and chronic inflammation. B) No evidence of neoplasia identified. 2) Prostate, left base, core biopsies: A) Benign prostate tissue. B) No evidence of neoplasia. -- DEPARTMENT OF PATHOLOGY, [address] [place] [address] [facility] Permit #[id number] Danny Coates M.D. Director Yusra Torres M.D. [employer] Algorithm Scientist Dir ayah -- -- RUN DATE: 09/16/08 [facility] NMI LIVE PAGE 2 RUN TIME: 1419 Specimen Inquiry RUN USER: INTERFACE -- Name: JESUS HEARD Status: REG REF Re09/12/08 Age/Sex: 63/M Unit#: [id number] Location: [facility] : 43 -- -- CONTINUED -- DIAGNOSIS (Continued) 3) Prostate, right apex, core biopsies: A) Benign prostate tissue with partial atrophy and focal acute and chronic inflammation. B) No evidence of neoplasia identified. 4) Prostate, right base, core biopsies: A. Prostatic adenocarcinoma, small acinar type: 1. Verito score: 3 + 3=6. 2. Extent of Local Invasion: Tumor involves one focus on one of three cores, measures 0.15 cm. in maximal single measured span and occupies 5% of total core length. 3. Perineural Invasion: Not seen. 4. Angiolymphatic Invasion: Not seen. B. Other findings: High grade prostatic intraepithelial neoplasia. Signed Electronically by: DANNY COATES MD 09/16/08 1419 -- -- DEPARTMENT OF PATHOLOGY, [address] [place] [address] [facility] Permit #[id number] Danny Coates M.D. Director Yusra Torres M.D. Weather Algorithm Scientist Dir ayah -- 84 * SERUM LEVELS OF PSA MEASURED USING THE ARIANNA CLAUDIA ACCESS HYBRITECH IMMUNOASSAY SHOULD NOT BE INTERPRETED ABSOLUTE EVIDENCE OF THE PRESENCE OR ABSENCE OF DISEASE. THE PSA VALUE SHOULD BE USED IN CONJUNCTION WITH OTHER PERTINENT CLINICAL DIAGNOSTIC PROCEDURES. 85 ---- RUN DATE: 02/13/08 [facility] NMI LIVE PAGE 1 RUN TIME: 1330 Specimen Inquiry RUN USER: INTERFACE -- Name: JESUS HEARD Acctri#: [id number] Status: REG REF Re02/09/08 Age/Sex: 62/M Unit#: [id number] Location: [facility] : [birth year] -- Specimen: [id number] SOUT Spec Date: 02/09/[address]: Raul yan MD Spec Type: SURGICAL P Received: 02/12/08 Copies to: SPECIMEN SKIN LEFT SIDE OF FACE HISTORY PRE-OP DIAGNOSIS: Neoplasm uncertain CLINICAL INFORMATION: Skin scraping on left side of face GROSS DESCRIPTION The specimen is received in formalin labelled Jesus Heard, Skin Left Side of Face, and consists of multiple, rivera-quiñonez, irregular, curettage fragments measuring 1.1 x 0.6 x 0.3 cm. in aggregate. Submitted entirely, one cassette. DIAGNOSIS Skin, left side of face, curettage: Seborrheic keratosis. Signed Electronically by: DANNY COATES MD 02/13/08 1330 -- -- DEPARTMENT OF PATHOLOGY, [address] [place] [address] [facility] Permit #[id number] Danny Coates M.D. Director of Laboratories -- 86 * SERUM LEVELS OF PSA MEASURED USING THE ARIANNA [employer] ACCESS HYBRITECH IMMUNOASSAY SHOULD NOT BE INTERPRETED ABSOLUTE EVIDENCE OF THE PRESENCE OR ABSENCE OF DISEASE. THE PSA VALUE SHOULD BE USED IN CONJUNCTION WITH OTHER PERTINENT CLINICAL DIAGNOSTIC PROCEDURES. 87 CHOLESTEROL INTERPRETATION: Desirable: Less than 200 MG/DL Borderline-High Risk: 200-239 MG/DL High-Risk: 240 MG/DL and over 88 HDL INTERPRETATION: Undesirable: High Risk: Less than 40 MG/DL Desirable: Low Risk: Greater than 60 MG/DL 89 LDL INTERPRETATION: Low Risk Optimal Level: LDL Less than 100 MG/DL Near or Above Optimal: LDL 100-129 MG/DL Borderline High Risk: LDL 130-159 MG/DL High Risk: LDL 160-189 MG/DL Very High Risk: LDL Greater than 189 MG/DL 90 Anion gap measurement may be of limited value in the presence of any alkalosis, especially in a combined acid base disorder. . 91 Please note change in reference range effective 07 . 92 * SERUM LEVELS OF PSA MEASURED USING THE [employer] ACCESS HYBRITECH IMMUNOASSAY SHOULD NOT BE INTERPRETED ABSOLUTE EVIDENCE OF THE PRESENCE OR ABSENCE OF DISEASE. THE PSA VALUE SHOULD BE USED IN CONJUNCTION WITH OTHER PERTINENT CLINICAL DIAGNOSTIC PROCEDURES. 93 LYNDSEY VALUE=1.85 ( OF 07/08/04) Recommended INR for Patients on Oral Anticoagulants Prophylaxis 2.0 - 3.0 Treatment of thrombosis 2.0 - 3.0 Prevention of embolism 2.0 - 3.0 Prevention of embolism from prosthetic heart valves 2.5 - 3.5 94 PLEASE NOTE NEW REFERENCE RANGE EFFECTIVE 05 95 Anion gap measurement may be of limited value in the presence of any alkalosis, especially in a combined acid base disorder. . 96 Classification: Borderline High . 97 Classification: Low . 98 CALCULATED LDL APPROXIMATES THE VALUE OF A DIRECT LDL MEASUREMENT. Classification: Borderline High . 99 * SERUM LEVELS OF PSA MEASURED USING THE [employer] ACCESS HYBRITECH IMMUNOASSAY SHOULD NOT BE INTERPRETED ABSOLUTE EVIDENCE OF THE PRESENCE OR ABSENCE OF DISEASE. THE PSA VALUE SHOULD BE USED IN CONJUNCTION WITH OTHER PERTINENT CLINICAL DIAGNOSTIC PROCEDURES. 100 Anion gap measurement may be of limited value in the presence of any alkalosis, especially in a combined acid base disorder. . Procedures Date CPT Code Description Status Comment 07/30/2016 78534 X-Ray, C-Spine, Complete Completed 10/02/2015 78806 X-Ray Finger(S) Two Views Completed 10/02/2015 85341 Apply Splint Finger Static Completed 09/10/2015 18931 Electrocardiogram Complete Completed 10/15/2014 28585 Dexa Bone Density Study One Or Completed More Sites Axial Skeleton 06/13/2012 32897 Destruction Of Skin Lesions Up Completed To 14 Flat Warts/Molluscum Contag 06/02/2011 12284 Destruction Of Skin Lesions Up Completed To 14 Flat Warts/Molluscum Contag 02/09/2008 10120 Destruction Of Skin Lesions Up Completed To 14 Flat Warts/Molluscum Contag 02/09/2008 81352 Shave Skin Lesion .6-1CM Completed Face/Ear/Eyelid/Nose/Lip/Mucou s Membr 12/26/2007 Colonoscopy Completed Normal; Dr Burkett advised repeat 5 yrs (b/o Hx colon polyp- 1 hyperplastic polyp 12/27), but we discussed this 06/18/14; I advised a 10yr f/u and pt agreed w/ this 08/19/2006 82771 X-Ray Knee, Complete Completed 08/05/2004 88968 Electrocardiogram Complete Completed Encounters Type Date Location Provider CPT E/M Dx Office Visit 09/12/2017 2:00p Main Office Raul Downing M.D. 41956 Z00.01 Z23 Z12.11 M25.552 Z85.46 E78.00 M10.9 R21 Office Visit 03/22/2017 1:30p Main Office Raul Downing M.D. 25777 M54.2 M50.30 K21.9 Office Visit 10/02/2015 10:25a Main Office Gary Mckeon M.D. 38452 S60.042A S56.415A M20.012 Y93.73 S60.00xA Office Visit 09/10/2015 9:45a Main Office Raul Downing M.D. 11349 R06.02 R07.9 Office Visit 07/28/2015 2:00p Main Office Raul Downing M.D. 71556 Z00.01 D48.5 E78.0 Z85.46 R97.2 G25.81 Office Visit 03/14/2015 1:15p Main Office Raul Downing M.D. 09716 E78.0 Z23 Z41.8 R97.2 Z85.46 Office Visit 10/15/2014 10:30a Main Office Raul Downing M.D. 01159 V82.81 272.0 V58.69 Office Visit 06/18/2014 2:00p Main Office Raul Downing M.D. 06678 V70.0 272.0 274.9 V10.46 Office Visit 07/30/2013 12:55p Main Office Raul Downing M.D. 38511 V10.46 790.93 272.0 238.2 786.50 Office Visit 06/15/2013 8:30a Main Office Raul Downing M.D. 93716 V70.0 V10.46 274.9 272.0 238.2 790.93 V75.9 736.1 V06.1 V07.2 Office Visit 06/13/2012 8:55a Main Office Raul Downing M.D. 72544 V70.0 V10.46 530.81 346.00 274.9 702.19 V76.44 Office Visit 10/21/2011 4:30p Main Office Gary Mckeon M.D. 50718 719.46 Office Visit 07/21/2011 8:30a Main Office Raul Downing M.D. 91054 843.8 719.45 Office Visit 06/02/2011 9:45a Main Office Raul Downing M.D. 63350 V70.0 530.81 V10.46 786.2 702.19 Office Visit 05/03/2011 11:00a Main Office Raul Downing M.D. 83419 786.2 461.1 784.1 Office Visit 05/11/2010 9:15a Main Office Raul Downing M.D. 45851 723.1 346.00 Office Visit 02/18/2010 9:45a Main Office Raul Downing M.D. 76816 274.9 272.8 530.81 786.2 V10.46 V70.0 V03.82 V07.2 Office Visit 06/17/2009 11:30a [place] [address] 728.6 702.19 Office Visit 03/21/2009 4:45p Main Office Raul Downing M.D. 27347 562.11 562.10 274.9 Office Visit 03/13/2009 10:15a [place] [address] 562.11 Office Visit 02/17/2009 9:45a Main Office Raul Downing M.D. 93086 274.9 272.8 780.52 530.81 702.19 726.10 V70.0 Office Visit 12/02/2008 4:45p Main Office Raul Downing M.D. 04900 702.19 274.9 Office Visit 02/09/2008 10:45a Main Office Raul Downing M.D. 03430 702.19 272.8 274.9 216.2 Office Visit 01/26/2008 9:45a Main Office Raul Downing M.D. 34471 V70.0 238.2 272.8 V76.44 702.19 786.2 346.00 274.9 V05.8 V07.2 Office Visit 08/19/2006 1:30p Main Office Raul Downing M.D. 63372 719.46 719.06 724.5 780.52 Office Visit 03/15/2006 11:15a Main Office Raul Downing M.D. 54739 786.2 724.5 780.52 Office Visit 01/24/2006 4:00p Main Office Raul Downing M.D. 99630 786.2 Office Visit 09/27/2005 3:00p Main Office Raul Downing M.D. 09307 729.5 603.9 Office Visit 08/02/2005 11:00a Main Office Raul Downing M.D. 70355 702.19 381.01 Office Visit 02/02/2005 8:55a Main Office Raul Downing M.D. 84326 562.11 787.91 751.5 691.8 794.8 Office Visit 11/17/2004 10:45a Main Office Raul Downing M.D. 53494 274.9 307.41 782.1 Office Visit 08/21/2004 9:15a Main Office Raul Downing M.D. 74472 V58.3 717.9 Office Visit 08/05/2004 9:45a Main Office Raul Downing M.D. 31516 717.9 274.9 603.9 V76.44 272.8 Office Visit 05/25/2004 4:30p Main Office Raul Downing M.D. 97569 719.06 238.2 Office Visit 10/29/2003 11:30a Main Office Raul Downign M.D. 36831 380.89 993.2 274.9 Office Visit 05/08/2003 3:45p Main Office Raul Downing M.D. 83911 274.9 790.6 010.00 272.8 V17.4 Plan of Care Future Appointment(s):09/13/2018 8:30 am - Raul Downing M.D. at [facility] [place]2009/12/2017 - Raul Downing M.D.Z00.01 Encounter for general adult medical exam w abnormal findingsFollow up:RTO 1 yr DM. Get fasting bloodwork the week before.Z23 Encounter for immunizationNew Medication:Shingrix 50 mcgComments:Counseled re Shingrix, Rx provided.Z12.11 Encounter for screening for malignant neoplasm of colonComments:Counseled re colon screening options, incl pros and cons of FIT and colonoscopy. He also asked aboutCologuard wc I reviewed w/ him. In the end he elected to have a C-scope. Will refer.Referral: [facility], MefbonhleouqwqkqE20.552 Pain in left hipComments: Suspect an abdominal wall strain. He prefers continuing care w/ chiro. If very persistent and he wants to see PT he will let me know.Z85.46 Personal history of malignant neoplasm of prostateComments:He is under care of Dr Soriano, has upcoming appt and needs PSA in advance.E78.00 Pure hypercholesterolemia, cfegirwxuowI30.9 Gout, [id number] Rash and other nonspecific skin eruptionFollow up:As we discussed, try using a thin piece of moleskin, apply it to your hand brace, to see if it helpswith the irritation. You may also use 1% hydrocortisone cream for it.
[2017-09-18] MEDS ORDERED: Ketorolac INJ* 30 MG/ML 1 ML VIAL IM ONE (00:29)
[2017-09-18] MEDS ORDERED: oxyCODONE/Acetamin 5/325 MG* TAB PO ONE (00:29)
[2017-09-18] MEDS ORDERED: Penicillin VK TAB* 250 MG PO ONE (00:29)
--- NOTE | 2017-09-18 00:48 | ED ---
Throat Pain/Nasal Congestion - HPI Summary HPI Summary: 72-year-old male presents with dental pain since Tuesday. He states he was seen at the dentist Tuesday and they sent him to an oral surgeon. He states he has an appointment on Tuesday. He states the pain progressively getting worse at night. He took been Vicodin last night and it seemed to help but tonight the Vicodin did not work. He has been taking ibuprofen during the day. He states that the pain is a sharp pain that radiates up his jaw. He denies any chest pain or shortness breath. He denies any difficulty swallowing. Dentist recommended put him on antibiotic but did not start him on such. He states the pain is becoming unbearable and is unable to sleep. He has the Vicodin for a previous injury and the Vicodin is . - History of Current Complaint Chief Complaint: EDDentalPain Time Seen by Provider: 09/17/17 23:46 - Allergies/Home Medications Allergies/Adverse Reactions: Allergies Allergy/AdvReac Type Severity Reaction Status Date / Time bee venom protein (honey bee) Allergy Anaphylatic Verified 09/17/17 23:22 Shock MS Bee Venom [Bee Venom] Allergy Anaphylatic Verified 02/22/17 10:52 Shock PMH/Surg Hx/FS Hx/Imm Hx Endocrine/Hematology History: Denies: Hx Diabetes, Hx Thyroid Disease Cardiovascular History: Denies: Hx Hypertension, Hx Pacemaker/ICD Respiratory History: Denies: Hx Asthma, Hx Chronic Obstructive Pulmonary Disease (COPD) GI History: Denies: Hx Ulcer History: Denies: Hx Dialysis, Hx Renal Disease Sensory History: Reports: Hx Hearing Aid Psychiatric History: Denies: Hx Panic Disorder - Surgical History Surgery Procedure, Year, and Place[place] [facility] [place] KNEE CARTLIDGE REPAIR 1998. TRIGGER FINGER/THUMB RIGHT HAND [facility] 2016, LASIK, TONSILS Infectious Disease History: No Infectious Disease History: Reports: Hx Hepatitis - HEP A Denies: Hx Clostridium Difficile, Hx Human Immunodeficiency Virus (HIV), Hx of Known/Suspected MRSA, Hx Shingles, Hx Tuberculosis, Hx Known/Suspected VRE, Hx Known/Suspected VRSA, History Other Infectious Disease, Traveled Outside the [place] in Last 30 Days - Family History Known Family History: Positive: Cardiac Disease, Hypertension Family History: NON CONTRIBUTORY - Social History Alcohol Use: Rare Hx Substance Use: No Substance Use Type: Reports: None Hx Tobacco Use: No Smoking Status (MU): Never Smoked Tobacco Review of Systems Negative: Fever Positive: Dental Pain Negative: Chest Pain Negative: Shortness Of Breath All Other Systems Reviewed And Are Negative: Yes Physical Exam Triage Information Reviewed: Yes Vital Signs On Initial Exam: Initial Vitals Temp Pulse Resp BP Pulse Ox 97.1 F 58 16 142/92 99 09/17/17 23:18 09/17/17 23:18 09/17/17 23:18 09/17/17 23:18 09/17/17 23:18 Vital Signs Reviewed: Yes Appearance: Positive: Well-Appearing Skin: Positive: Warm, Dry Head/Face: Positive: Normal Head/Face Inspection Eyes: Positive: Normal, EOMI, SYEDA, Conjunctiva Clear ENT: Positive: Normal ENT inspection, Pharynx normal, TMs normal Dental: Positive: Percussion Tenderness @ - 29. Negative: Abscess @ Respiratory/Lung Sounds: Positive: Clear to Auscultation, Breath Sounds Present Cardiovascular: Positive: Normal, RRR Musculoskeletal: Positive: Normal Neurological: Positive: Normal Psychiatric: Positive: Normal Diagnostics - Vital Signs Vital Signs Temp Pulse Resp BP Pulse Ox 09/17/17 23:18 97.1 F 58 16 142/92 99 - Laboratory Lab Statement: Any lab studies that have been ordered have been reviewed, and results considered in the medical decision making process. EENT Course/Dx - Course Course Of Treatment: 72-year-old male presents with dental pain since Tuesday. He states he was seen at the dentist Tuesday and they sent him to an oral surgeon. He states he has an appointment on Tuesday. He states the pain progressively getting worse at night. He took been Vicodin last night and it seemed to help but tonight the Vicodin did not work. He has been taking ibuprofen during the day. He states that the pain is a sharp pain that radiates up his jaw. He denies any chest pain or shortness breath. He denies any difficulty swallowing. Dentist recommended put him on antibiotic but did not start him on such. He states the pain is becoming unbearable and is unable to sleep. He has the Vicodin for a previous injury and the Vicodin is . On examining his tenderness tooth 29. No abscess noted. Will treat with penicillin. We will try Percocet for pain. Told to keep follow-up with oral surgeon on Tuesday. Patient understands agrees plan. - Differential Diagnoses Differential Diagnoses: Dental Abscess, Dental Caries, Fractured Tooth - Diagnoses Provider Diagnoses: Dental infection Discharge - Sign-Out/Discharge Documenting (check all that apply): Discharge - Discharge Plan Condition: Good Disposition: HOME Prescriptions: oxyCODONE/Acetamin 5/325 MG* [Percocet 5/325 TAB*] 1 tab PO Q6H PRN #12 tab MDD 4 PRN Reason: Pain Penicillin VK TAB* [Penicillin VK 250 mg Tab*] 500 mg PO QID #27 tab Patient Education Materials: Toothache (ED) Referrals: Raul Downing MD [Primary Care Provider] - Additional Instructions: Take antibiotics: 4 times a day for 7 days, first dose given in ED Use ibuprofen or Tylenol every 6 hours and narcotic for break through pain every 6 hours as needed Avoid hard, crunchy food until seen by dentist Follow up with dentist as scheduled Return to ED if develop fever, shortness of breath, pain with eye movement or swelling around eye - Billing Disposition and Condition Condition: GOOD Disposition: HOME Images - Images Dental: 1 - pain
[2017-09-18 01:32] VITALS: BP 123/79
== END 2017-09-18 01:32 | disposition home or self-care (01) ==
LOC: ED 23:14
DX: K04.7 Periapical abscess without sinus (principal); K08.89 Other specified disorders of teeth and supporting structures
CPT/HCPCS: 96372; 99282; A9270-GY; J1885

== ENCOUNTER 2017-10-11 07:20 | Emergency (ER) | payer MEDICARE, BC ==
--- OUTSIDE RECORDS SUMMARY | 2017-10-11 07:28 | XMS REPORT ---
:1945 External Reference #:[id number] Author Organization [facility] [employer] Address [address] [place] [address] Phone [phone] Care Team Providers Name Role Phone Raul Downing M.D. Primary Care Physician Unavailable Payers Type Date Identification Numbers Payment Provider Subscriber Medicare Primary Policy Number: [id number] Medicare - NGS Tirso Heard PayID: [id number] [address] [place] [address] Commercial Policy Number: [id number] [place] Plan Tirso Heard PayID: [id number] [address] [place] [address] Problems Date Description Provider Status Onset: 02/26/2015 Backache Rajani Calvo O.D. Active Onset: 02/26/2015 Migraine Rajani Calvo O.D. Active Onset: 02/26/2015 Diverticulitis Rajani Calvo O.D. Active Onset: 02/26/2015 Gout Rajani Calvo O.D. Active Onset: 02/26/2015 Blepharitis Rajani Calvo O.D. Active Onset: 02/26/2015 Nuclear senile cataract Rajani Calvo O.D. Active Onset: 02/26/2015 Cortical senile cataract Rajani Calvo O.D. Active Onset: 02/26/2015 High Risk Open Angle Glaucoma Rajani Calvo O.D. Active Onset: 04/15/2015 Squamous blepharitis Rajani Calvo O.D. Active Onset: 10/01/2015 Hypermetropia Rajani Calvo O.D. Active Onset: 10/01/2015 Presbyopia Rajani Calvo O.D. 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 Active Onset: 10/08/2016 Combined form of senile cataract Hiwot Russell O.D. 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 Warm 02/25/ Active as needed Rajani Compresses 2014 Ambrosio Calvo O.D. Allopurinol / Active Tablets 300mg Unknown 0000 Atorvastatin / Active Tablets 10mg take 1 Unknown Calcium 0000 tablet by mouth every other day To Reduce Cholesterol And ... Meloxicam / Active Tablets 15mg Unknown 0000 Refresh / Active Solution 1.4-0.6% daily both Hiwot JBrendan 0000 eyes Piper Russell Crestor / Active Tablets 5mg Unknown 0000 Pazeo 09/30/ Hx Solution 0.7% one drop H10.45 Rajani 2016 - every day in Ambrosio Calvo 09/29/ both eyes O.DBrendan 2016 Pataday 09/30/ Hx Solution 0.2% 5ml 1 drop both H10.45 Rajani 2016 - eyes every Ambrosio Calvo 10/08/ day O.D. 2015 Tobramycin-Dex 04/15/ Hx Suspension 0.3-0.1% 5ml 1 drop H01.025 Rajani amethasone 2015 - 3x/day x 10 Ambrosio Calvo, 09/29/ days Both O.D. 2016 Eyes Lotemax 02/26/ Hx Gel 0.5% 10gm 1 drop both 373.00 Rajani 2015 - eyes three Ambrosio Calvo, 04/14/ x/day both O.D. 2015 eyes for 10 days Erythromycin 02/26/ Hx Ointment 5mg/GM 1Tube apply thin 373.00 Rajani 2015 - s strip to all Ambrosio Calvo, 04/14/ four eyelid O.D. 2014 margins every night at bedtime Blephamide 02/25/ Hx Suspension 10-0.2% Rajani 2014 - Ambrosio Calvo, 04/14/ O.D. 2014 Omeprazole / Hx Capsules DR 40mg Take 1 Unknown 0000 - Capsule By 09/29/ Mouth Daily 2015 as Needed For Acid Reflux Aleve / Hx Capsules 220mg as needed Unknown 0000 - 2015 Aspirin / Hx Tablets DR 81mg Unknown 0000 - 2016 Results Description No Information Procedures Date CPT Code Description Status 04/11/2017 25197 Visual Field Exam Extended Completed 04/11/2017 73352 Est Patient Intermediate Exam Completed 10/08/2016 78468 Scanning Computerized Ophthalmic Diagnostic Imag Completed Posterior Seg On 10/08/2016 65939 Est Patient Comprehensive Exam Completed 10/01/2015 69233 Determination Of Refractive State Completed 10/01/2015 10692 Est Patient Comprehensive Exam Completed 04/15/2015 64895 Est Patient Intermediate Exam Completed 02/26/2015 95973 Scanning Computerized Ophthalmic Diagnostic Imag Completed Posterior Seg On 02/26/2015 62436 Est Patient Comprehensive Exam Completed 05/13/2014 08161 Est Patient Comprehensive Exam Completed 05/13/2014 67472 Visual Field Exam Extended Completed 01/15/2014 45506 Est Patient Intermediate Exam Completed 06/06/2013 69406 Scanning Computerized Ophthalmic Diagnostic Imag Completed Posterior Seg On 06/06/2013 65232 Est Patient Comprehensive Exam Completed 06/06/2013 201 Refit - No Change In Fit Completed 05/02/2013 78898 Est Patient Intermediate Exam Completed 05/02/2013 69661 Pachymetry Completed 10/31/2012 88257 Visual Field Exam Extended Completed 03/06/2012 96066 Est Patient Comprehensive Exam Completed 03/06/2012 57843 Determination Of Refractive State Completed 09/03/2011 03345 Visual Field Exam Extended Completed 06/04/2011 27522 Scanning Computerized Ophthalmic Diagnostic Imag Completed Posterior Seg On 06/04/2011 62576 Determination Of Refractive State Completed 06/04/2011 12004 Est Patient Comprehensive Exam Completed 02/04/2011 11872 Est Patient Intermediate Exam Completed 06/03/2010 38279 Scanning Laser W/Interp And Report Completed 06/03/2010 94917 Scanning Laser W/Interp And Report Completed 06/03/2010 64419 Est Patient Comprehensive Exam Completed 10/30/2009 32212 Visual Field Exam Extended Completed 10/16/2009 25323 Est Patient Intermediate Exam Completed 12/21/2007 16004 Est Patient Comprehensive Exam Completed 03/28/2007 510 Eye Scrubs 30 Count Completed 12/20/2006 82348 Est Patient Comprehensive Exam Completed 12/20/2006 510 Eye Scrubs 30 Count Completed 10/10/2006 53769 Est Patient Intermediate Exam Completed 01/25/2006 20381 Determination Of Refractive State Completed 01/25/2006 20777 Est Patient Comprehensive Exam Completed 11/20/2004 86358 Est Patient Comprehensive Exam Completed 01/01/2004 114 Polycarb SV Completed Encounters Type Date Location Provider CPT E/M Dx Office Visit 02/12/2014 9:15a Willie Hardin MD, Rajani Calvo, 83957 373.00 pc O.D. Office Visit 01/29/2014 12:30p Willie Hardin MD, Rajani Calvo, 35940 373.00 pc O.D. 372.14 Office Visit 10/31/2012 11:00a Willie Hardin MD, Rajani Calvo O.D. 76126 365.05 pc Office Visit 09/03/2011 9:00a Willie Hardin MD, Rajani Calvo O.D. 68085 365.05 pc Office Visit 08/05/2011 10:45a Willie Hardin MD, Rajani Calvo O.D. 22520 373.00 pc Office Visit 01/01/2010 8:00a Willie Hardin MD, Rajani Calvo O.D. 54585 373.00 pc Office Visit 11/27/2009 8:15a Willie Hardin MD, Rajani Calvo O.D. 08790 373.00 pc Office Visit 11/06/2009 1:30p Willie Hardin MD, Rajani Calvo O.D. 11665 373.00 pc Office Visit 10/30/2009 1:45p Willie Hardin MD, Rajani Calvo O.D. 89281 365.01 pc Office Visit 10/20/2009 7:15p Willie Hardin MD, Rajani Calvo O.D. 58025 373.00 pc Office Visit 02/20/2004 2:30p Willie Hardin MD, Willie Hardin M.D. 41706 373.00 pc Plan of Care 10/10/2017 - Hiwot Russell O.D.H40.023 Open angle with borderline findings , high risk, bilateralFollow up:6 Month Follow Up, VF 30-2 You can expect to have your eyes dilated at your next visit. If Dr. Russell orders any additional testing, it may require extra time. We recommend that you bring sunglasses, as dilation drops often make you light sensitive until they wear off. We always recommend you bringsomeone to drive you home if you are uncomfortable driving with your eyes dilated. If you have any questions before your next visit, feel free to call our office at .
--- OUTSIDE RECORDS SUMMARY | 2017-10-11 07:29 | XMS REPORT ---
:1945 External Reference #:[id number] Author Organization [facility] Address [address] [place] [address] Phone [phone] Care Team Providers Name Role Phone HCP given Primary Care Physician Unavailable Payers Type Date Identification Numbers Payment Provider Subscriber Medicare Primary Effective: Policy Number: [employer] [facility] 2015 [id number] Services PayID: [id number] [address] [place] [address] Medigap Part B Effective: 2005 Policy Number: [id number] [place] PayID: [id number] [address] [place] [address] Problems Date Description Provider Status Onset: 05/11/2010 [...] time as of Jan 2015; 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 sexually active Contraceptive Methods None Age 1st Lynd 19 Years Old Sexual Hx Patient has had 1 sexual partner. Allergies, Adverse Reactions, Alerts Date Description Reaction Status Severity Comments 10/29/2003 NKDA active Medications Medication Date Status Form Strength Qnty SIG Indications Ordering Provider Meloxicam Active Tablets 7.5mg 1 tablet M54.2 Unknown 7 daily, for chronic neck pain M50.30 Crestor 05/08/2015 Active Tablets 5mg 90tabs take 1 tablet E78.0 Silcoff, daily for high Raul, cholesterol M.D. (to replace atorvastatin) Melatonin 06/14/2013 Active Capsules OTC prn Unknown Omeprazole 02/17/[address] 40mg 30caps 1 capsule K21.9 Silcoff, daily as Raul, needed for M.D. acid reflux Allopurinol 02/17/2009 Active Tablets 300m 90tabs take 1 tablet M10.9 Silcoff, g by mouth once Raul, daily to M.D. prevent gout Multivitamins Active Tablets 1 po qd Unknown Shingrix 09/12/2017 - Hx Suspension 50mc 2units administer 2 Z23 Silcoff, 09/13/2017 Rec g doses as carrie Carter, per M.D. cdc guidelines Omeprazole 03/22/2017 - Hx Capsules DR 20mg 90caps take one M54.2 Silcoff, 10/06/2017 capsule by Raul mouth every M.D. day while on daily or near daily 'Nsaid' medication (eg Meloxicam) M50.30 K21.9 PT For Neck 03/02/2017 - Hx please evaluate and M54.2 Raul Downing Pain 10/06/2017 treat, instruct in M.D. hep, modalities prn; see MRI M50.30 Epinephrine 12/17/2016 - Hx Solution 0.3mg/0.3ML Inject 0.3 MG Unknown 10/06/2017 Auto-Inject Once Use At First Signs Of Allergic Reaction to bee stings PT For 11/25/2015 - Hx please [place] Bilateral Hand 07/29/2016 evaluate and Raul Pain treat, M.D. instruct in hep, modalities prn PT For Trigger 04/27/2015 - Hx please Luzmaria Lazaro (L 07/28/2015 evaluate and 5. Savita Carter) treat, 31 M.D. instruct in 2 hep, modalities prn Atorvastatin 03/14/2015 - Hx Tablets 10mg 90t take 1 tablet E7 Silcoff, Calcium 05/08/2015 abs daily to 8. Raul, reduce 0 M.D. cholesterol and lower your heart disease risk PT For Trigger 12/23/2014 - Hx evaluate and [place] Finger (R 3RD 03/13/2015 treat, Luzmaria Carter) modalities M.D. prn, instruct in hep s appropriate Malarone 12/13/2014 - Hx Tablets 250-100mg 21t 1 by mouth Silcoff, 02/11/2015 abs every day Raul, starting 1-2 M.D. days before arrival into malaria endemic region, continue for 1 week after leaving Atorvastatin 09/15/2014 - Hx Tablets 10mg 45t 1 by mouth E7 Silcoff, Calcium 03/14/2015 abs every other 8. Raul, day to reduce 0 M.D. cholesterol and lower your risk of developing heart disease Cipro 11/01/2012 - Hx Tablets 500mg 20t 1 po bid as Silcoff, 12/31/2012 abs needed for Raul, travellu M.D. diarrhea, for 1-3 days as directed Cipro 11/24/2011 - Hx Tablets 500mg 20t 1 po bid as Silcoff, 12/24/2011 abs needed for Raul, travellers M.D. diarrhea, for 1-3 days as directed PT For Right 07/21/2011 - Hx please 84 Silcoff, Hip (Groin) 06/12/2012 evaluate and 3. Betty Carter treat, 8 M.D. instruct in hep, modalities prn Codeine Sulfate 05/03/2011 - Hx Tablets 15mg 20t 1-2 by mouth 78 Silcoff, 05/13/2011 abs every night as 4. Raul, needed for 1 M.D. cough and sore throat; may repeat x1 overnight after 4hrs 786.2 Amoxicillin 05/03/2011 - Hx Tablets 500mg 60tabs 2 by mouth three 461.1 Silcoff, 05/13/2011 times a day for Raul, 10 days for M.D. sinusitis Cipro 03/11/2010 - Hx Tablets 500mg 20tabs 1 po bid for 10 562.11 Silcoff, 03/21/2010 days Juliocesar Carter Augmentin 03/21/2009 - Hx Tablets 875mg 20tabs 1 po bid, to 562.11 Silcoff, 06/17/2009 start at onset of Raul symptoms of M.D. diverticulitis 562.10 Cipro 03/11/2009 - Hx Tablets 500mg 20tabs 1 po bid for 562.11 Silcoff, 03/20/2009 10 days Juliocesar Carter Metronidazole 03/11/2009 - Hx Tablets 500mg 40tabs 1 po qid x10 562.11 Silcoff, 03/21/2009 days Juliocesar Carter Glucosamine/Johnnie 02/17/2009 - Hx Tablets using for Silcoff, droitin/MSM 07/13/2011 his hip pain luan Carter M.D. Zolpidem 02/17/2009 - Hx Tablets 10mg 30tabs 1 po qhs prn 780.52 Silcoff, Tartrate 06/17/2014 for sleep; Raul, you should M.DBrendan only take this if you have 8hrs to devote to sleep Malarone 12/24/2008 - Hx Tablets 250-100 16tabs 1 po qd Silcoff, 02/07/2009 starting 1-2 Raul, days before M.DBrendan entry into malaria endemic area, stop 1 [...] Hx Capsules 5mg;500 60caps 1-2 q6h prn klepack & 01/26/2008 mg pain Acetaminophen PT Referral [...] Hx Cream 0.1% 15gm apply to 691.8 [place], Acetonide 01/26/2008 affected area Raul, on left heel M.D. bid until clear Ambien 11/17/2004 - Hx Tablets 10mg 30tabs 1/2-1 qhs po 307.41 Silcoff, 06/09/2005 hs prn for Raul, sleep when M.D. travelling [place] Diamox 10/29/2003 - Hx Tablets 250mg 30tabs 2 po qd as 993.2 Silcoff, 01/26/2008 directed Raul, starting M.D. 24hrs prior to arrival [place], continue for 48hrs after reaching max. altitude Allopurinol - Hx Tablets 100mg 90tabs 1 po qd 274.9 Silcoff, 02/09/2008 RaulJuliocesar Isoniazid - Hx Tablets 300mg 1 po qd Unknown 10/29/2003 Naproxen Sodium - Hx Tablets 220mg prn For Unknown 05/25/2004 Muscle Pain Immunizations CPT Code Status Date Vaccine Lot # [id number] Given 09/13/2017 Shingrix Zoster (Shingles) Vaccine (HZV) Recomb,Subnit,Adjuvanted 53729 Given 03/10/2017 Influenza Vaccine Split Virus Preservative Free Im Use 18383 Given 03/14/2015 Prevnar 13 [id number] 42330 Given 06/15/2013 Adacel or Boostrix, TDaP [id number] 75274 Given 04/19/2011 Flu, Split Virus 3Yrs 46825 Given 02/18/2010 Pneumococcal Immunization [id number] 91663 Given 01/26/2008 Zostavax [id number] 51342 Given 06/27/2002 Td Immunization 48167 Given 06/27/2002 Flu, Split Virus 3Yrs 67190 Given 06/27/1989 Hepatitis B Immunization Vital Signs Date Vital Result Comment 10/07/2017 BP Systolic 136 mmHg BP Diastolic 78 mmHg Weight 191.00 lb 09/12/2017 BP Systolic 138 mmHg BP Diastolic [...] Result H/L Range Note Laboratory test finding 09/13/2017 PSA Diagnostic 6.005 ng/mL High 0- 4.000 1, 2 Lipid Profile (Trig/Chol/HDL) 09/13/2017 Triglycerides 148 mg/dL 1, 3 Cholesterol 145 mg/dL 1, 4 HDL Cholesterol 36.7 mg/dL 1, 5 LDL Cholesterol 79 mg/dL 1, 6 Laboratory test finding 09/13/2017 Uric Acid 4.4 mg/dL 4.4-7.6 1, 7 Laboratory test finding 04/30/2017 PSA Diagnostic 6.785 ng/mL High 0- 4.000 8 Lipid Profile (Trig/Chol/HDL) 04/30/2017 Triglycerides 135 mg/dL 9 Cholesterol 140 mg/dL 10 HDL Cholesterol 38.4 mg/dL 11 LDL Cholesterol 75 mg/dL 12 Laboratory test finding 04/30/2017 Uric Acid 4.7 mg/dL 4.4-7.6 13 Laboratory test finding 01/12/2017 Rast Honeybee Venom 70.2 kU/L 14 Rast Paperwasp Venom 0.54 kU/L 15 Rast White Face Hornet 0.76 kU/L 16 Rast Yellow Hornet 1.03 kU/L 17 Rast Yellow Jacket 2.17 kU/L 18 Tryptase 1.1 ng/mL <11.5 19 Laboratory test finding 12/22/2016 Troponin-I (TnI) 0.03 [...] Egfr Non- 61.9 >60 Egfr 79.6 >60 20 CBC Auto Diff 12/22/2016 White Blood Count [...] finding 12/22/2016 Lactic Acid 1.2 mmol/L 0.5-2.0 21 Inr/Protime 12/22/2016 Inr 0.95 0.89-1.11 Urinalysis Profile 12/22/2016 Urine Color Yellow Urine Appearance Cloudy Urine Specific Graham 1.024 1.010-1.030 Urine pH 6.0 5-9 Urine Urobilinogen Negative Negative Urine Ketones Trace Negative Urine Protein Negative Negative Urine Leukocytes Negative Negative Urine Blood Negative Negative * * Negative 22 Urine Nitrite Negative Negative Urine Bilirubin Negative Negative Urine Glucose Negative Negative Laboratory test finding 06/02/2016 PSA Diagnostic 5.480 ng/mL High 0- 4.000 23 Lipid Profile (Trig/Chol/HDL) 06/02/2016 Triglycerides 111 mg/dL 24 Cholesterol 124 mg/dL 25 HDL Cholesterol 31.7 mg/dL 26 LDL Cholesterol 70 mg/dL 27 Laboratory test finding 06/02/2016 Uric Acid 5.5 mg/dL 4.4-7.6 28 Laboratory test finding 01/12/2016 PSA Diagnostic 5.214 ng/mL High 0-4.0 29 Lipid Profile (Trig/Chol/HDL) 01/12/2016 Triglycerides 131 mg/dL 30 Cholesterol 151 mg/dL 31 HDL Cholesterol 39.7 mg/dL 32 LDL Cholesterol 85 mg/dL 33 Laboratory test 01/12/2016 Alt (SGPT) 37 U/L 7-52 34 finding Xray 10/02/2015 X-Ray, Finger[S], Min. Of mallet finger w 2 Views, LT avuf Lipid Profile 07/19/2015 Triglycerides 79 mg/dL 35 (Trig/Chol/HDL) Cholesterol 148 mg/dL 36 HDL Cholesterol 42.4 mg/dL 37 LDL Cholesterol 90 mg/dL 38 Laboratory test finding 07/19/2015 Uric Acid 5.1 mg/dL 4.4-7.6 PSA Diagnostic 6.154 ng/mL High 0-4.000 39 Lipid Profile (Trig/Chol/HDL) 03/10/2015 Triglycerides 121 mg/dL 40 Cholesterol 158 mg/dL 41 HDL Cholesterol 41.0 mg/dL 42 LDL Cholesterol 93 mg/dL 43 Laboratory test 03/10/2015 Alt (SGPT) 35 U/L 7-52 44 finding Laboratory test 10/29/2014 PSA Diagnostic 7.900 ng/mL High 0-4.0 45 finding Laboratory test 10/16/2014 LDL Cholesterol Direct 90 mg/dL 46 finding LDL & HDL Particle 10/16/2014 Total LDL Particle Conc 1260 nmol/L &lt ;1300 Concentr NMR W/Lipids Small LDL Particle Conc 742 nmol/L High <=527 Total HDL Particle Conc 29.2 mcmol/L Low >=30.5 Large HDL Particle Conc < 1.3 mcmol/L Low >=4.8 Interpretation See Comment 47 Cholesterol,Total,CDC,P 149 mg/dL 48 Triglycerides,CDC,P 97 mg/dL 49 HDL,Cholesterol,CDC,P 41 mg/dL G009 Calculated LDL 89 mg/dL 50 Non-HDL Cholesterol 108 mg/dL 51 Lipid Profile (Trig/Chol/HDL) 10/11/2014 Triglycerides 94 mg/dL 52 Cholesterol 146 mg/dL 53 HDL Cholesterol 37.8 mg/dL 54 LDL Cholesterol 89 mg/dL 55 Laboratory test finding 10/11/2014 Alt 38 U/L 7-52 Laboratory test finding 10/11/2014 Lipoprotein Profile Apo 17 mg/dL < =30 56 a Laboratory test finding 07/22/2014 LDL Cholesterol Direct 162 mg/dL 57 , 58 Reference Lab Test See Comment 57, 59 Miscellaneous Test 07/22/2014 Test Name LIPOPROT MET PRO <SEE NOTE> 57, 60 Result SEE COMMENT 57, 61 Laboratory test finding 05/04/2014 PSA Diagnostic 5.687 ng/mL High 0-4.0 62 Surgical Pathology 10/02/2013 S RUN DATE: <SEE NOTE> Laboratory test finding 07/28/2013 Alt 46 U/L 14-54 64 Lipid Profile 07/28/2013 Triglycerides 76 mg/dL 40-200 (Trig/Chol/HDL) Cholesterol 217 mg/dL High Less than 200 HDL Cholesterol 46 mg/dL 40-60 65 Cholesterol/HDL Ratio 4.7 Average High 1-4.44 LDL Cholesterol 155.8 High Less Than 100 66 Laboratory test finding 07/28/2013 PSA Diagnostic 5.564 ng/mL High 0- 4.000 67 Hepatitis C Antibody Nonreactive Nonreactive 68 Lipid Profile (Trig/Chol/HDL) 06/07/2013 Triglycerides 98 mg/dL 40-200 Cholesterol 232 mg/dL High Less than 200 HDL Cholesterol 39 mg/dL Low 40-60 69 Cholesterol/HDL Ratio 6.0 Average High 1-4.44 LDL Cholesterol 173.4 High Less Than 100 70 Laboratory test finding 06/07/2013 PSA Diagnostic 4.672 ng/mL High 0- 4.000 71 Uric Acid 5.5 mg/dL 2.6-7.2 72 Lipid Profile (Trig/Chol/HDL) 06/07/2012 Triglycerides 92 mg/dL 40-200 Cholesterol 195 mg/dL Less than 200 HDL Cholesterol 34 mg/dL Low 40-60 73 Cholesterol/HDL Ratio 5.7 Average High 1-4.44 LDL Cholesterol 142.6 mg/dL High Less Than 100 74 Laboratory test finding 06/07/2012 PSA Diagnostic 3.1 ng/mL 0-4.0 75 Uric Acid 5.8 mg/dL 2.6-7.2 Lipid Profile (Trig/Chol/HDL) 05/24/2011 Triglyceride 114 mg/dL 40-200 Cholesterol 185 mg/dL Less Than 200 76 High Density Lipoprotein 34 mg/dL Low 40-60 77 Cholesterol/HDL Ratio 5.44 AVERAGE High 1-4.97 Low Density Lipoprotein 128 mg/dL High Less Than 100 78 Laboratory test finding 05/24/2011 PSA,Diagnostic 3.61 NG/ML 0-4 79 Uric Acid 4.7 mg/dL 2.6-7.2 Throat-Beta Strept 04/26/2011 Throat-Beta Strep Culture NF 80 Laboratory test finding 02/10/2010 PSA Screening 2.92 NG/ML 0-4 81 Lipid Profile 02/10/2010 Triglyceride 147 mg/dL 40-200 (Trig/Chol/HDL) Cholesterol 190 mg/dL Less Than 200 82 High Density Lipoprotein 32 mg/dL Low 40-60 83 Cholesterol/HDL Ratio 5.94 AVERAGE High 1-4.97 Low Density Lipoprotein 129 mg/dL High Less Than 100 84 Laboratory test finding 02/10/2010 Uric Acid 5.0 mg/dL 2.6-7.2 Laboratory test finding 03/18/2009 Uric Acid 5.0 mg/dL 2.6-7.2 Laboratory test finding 02/12/2009 PSA Screening 3.31 NG/ML 0-4 85, 86 Lipid Profile (Trig/Chol/HDL) 02/12/2009 Triglyceride 111 mg/dL 40-200 85 Cholesterol 189 mg/dL Less Than 200 85, 87 High Density Lipoprotein 32 mg/dL Low 40-60 85, 88 Cholesterol/HDL Ratio 5.91 AVERAGE High 1-4.97 85 Low Density Lipoprotein 135 mg/dL High Less Than 100 85, 89 Laboratory test finding 02/12/2009 Uric Acid 6.7 mg/dL 2.6-7.2 85 Surgical Pathology 09/12/2008 Surgical Pathology Prostate CA 90 Laboratory test finding 08/27/2008 PSA,Diagnostic 3.40 NG/ML 0-4 91 Laboratory test finding 02/23/2008 Uric Acid 5.8 mg/dL 2.6-7.2 Laboratory test finding 02/09/2008 Surgical Pathology Jesse keratosis 92 Laboratory test finding 01/26/2008 PSA Screening 2.90 NG/ML 0-4 93 Lipid Profile 01/26/2008 Triglyceride 145 mg/dL 40-200 (Trig/Chol/HDL) Cholesterol 231 mg/dL High Less Than 200 94 High Density Lipoprotein 38 mg/dL Low 40-60 95 Cholesterol/HDL Ratio 6.08 AVERAGE High 1-4.97 Low Density Lipoprotein 164 mg/dL High Less Than 100 96 Laboratory test finding 01/26/2008 Uric Acid 6.2 mg/dL 2.6-7.2 CMP 12/14/2007 Sodium 140 mmol/L 135-145 Potassium 3.9 mmol/L 3.5-5.0 Chloride 107 mmol/L 101-111 Co2 (Carbon Dioxide) 28.6 mmol/L 22-32 Anion Gap 4.4 mmol/L 2-11 97 Glucose 107 mg/dL High 70-105 BUN 17 mg/dL 6-24 Creatinine 1.16 mg/dL 0.5-1.4 One Over Creatinine 0.80 BUN/Creatinine Ratio 14.7 8-20 Calcium 9.4 mg/dL 8.1-9.9 98 Total Protein 7.7 GM/DL 6.2-8.1 Albumin 3.9 [...] mmol/L 3.5-5.0 PSA Screening 2.04 NG/ML 0.01-4.0 99 Laboratory test finding 01/31/2006 PTT (Aptt) 24.8 20.4-29.5 100 Protime W/Inr 01/31/2006 Inr 1.03 101 Protime 12.0 SEC 10.5-13.1 CBC With Electronic Diff 01/13/2006 White Blood [...] Creatinine 0.83 Anion Gap 5.0 mmol/L 2-11 102 BUN 20 mg/dL 6-24 Calcium 9.5 mg/dL 8.7-10.2 Chloride 107 mmol/L 101-111 Co2 (Carbon Dioxide) 28.0 mmol/L 22-32 Glucose 99 mg/dL 70-105 Potassium 4.1 mmol/L 3.5-5.0 Sodium 140 mmol/L 135-145 BUN/Creatinine Ratio 16.7 8-20 Creatinine 1.2 mg/dL 0.5-1.4 Laboratory test finding 11/04/2004 Uric Acid 6.3 mg/dL 2.6-7.2 Laboratory test finding 08/21/2004 PSA Screening 2.3 NG/ML 0-4 103 Uric Acid 7.2 mg/dL 2.6-7.2 Lipid Profile 08/21/2004 Cholesterol/HDL Ratio 5.62 AVERAGE High 1-4.97 (Trig/Chol/HDL) Cholesterol 219 mg/dL High Less Than 200 104 Triglyceride 147 mg/dL 40-200 High Density Lipoprotein 39 mg/dL Low 40-60 105 Low Density Lipoprotein 151 mg/dL High Less Than 100 106 Basic Metabolic Panel 08/05/2004 Anion Gap 9.0 mmol/L 2-11 107 BUN 21 mg/dL 6-24 Calcium 10.3 mg/dL [...] Redcell Distribution WDTH 13 % 10.5-15 1 FASTING 12 HOUR Copy Result to: CHANDU SORIANO ([id number]) 2 Serum levels of PSA measured using the [employer] DXI Hybritech immunoassay should not be interpreted as absolute evidence of the presence or absence of disease. The PSA value should be used in conjunction with other pertinent clinical diagnostic procedures. The values obtained with different assay methods or kits cannot be used interchangeably. 3 Desirable: <150 Borderline High: 150-199 High: 200-499 Very High: >500 4 Desirable: <200 Borderline High: 200-239 High: >239 5 Low: <40 Desirable: 40-60 High: >60 6 Desirable: <100 Near Optimal: 100-129 Borderline High: 130-159 High: 160-189 Very High: >189 7 FASTING 12 HOUR Copy Result to: CHANDU SORIANO ([id number]) 8 Serum levels of PSA measured using the [employer] DXI Hybritech immunoassay should not be interpreted as absolute evidence of the presence or absence of disease. The PSA value should be used in conjunction with other pertinent clinical diagnostic procedures. The values obtained with different assay methods or kits cannot be used interchangeably. 9 Desirable: <150 Borderline High: 150-199 High: 200-499 Very High: >500 10 Desirable: <200 Borderline High: 200-239 High: >239 11 Low: <40 Desirable: 40-60 High: >60 12 Desirable: <100 Near Optimal: 100-129 Borderline High: 130-159 High: 160-189 Very High: >189 13 FASTING 12 HOUR Copy Result to: CHANDU SORIANO ([id number]) 14 Class 5 (Strongly Positive 50.0-99.9) Test Performed by: [place] [address] 15 Class 1 (Equivocal 0.35-0.69) Test Performed by: [place] [address] 16 Class 2 (Positive 0.70-3.49) Test Performed by: [place] [address] 17 Class 2 (Positive 0.70-3.49) Test Performed by: [place] [address] 18 Class 2 (Positive 0.70-3.49) Test Performed by: [place] [address] 19 Test Performed by: [place] [address] 20 Because ethnic data is not always readily [...] 15-29 5 Kidney failure <15 (or dialysis) 21 [facility] Severe Sepsis and Septic Shock Management Bundle Measure requires all lactic acids initially measuring >2.0 mmol/L be repeated. 22 *Ascorbic acid is present which may interfere with detection of blood. 23 Serum levels of PSA measured using the [employer] DXI Hybritech immunoassay should not be interpreted as absolute evidence of the presence or absence of disease. The PSA value should be used in conjunction with other pertinent clinical diagnostic procedures. The values obtained with different assay methods or kits cannot be used interchangeably. 24 Desirable <150 Borderline high 150-199 High 200-499 Very High >500 25 Desirable <200 Borderline high 200-239 High >239 26 Low <40 Desirable: 40-60 High: >60 27 Desirable: <100 mg/dL Near Optimal: 100-129 mg/dL Borderline High: 130-159 mg/dL High: 160-189 mg/dL Very High: >189 mg/dL 28 FASTING 12 HOUR Copy Result to: CHANDU SORIANO ([id number]) 29 Serum levels of PSA measured using the [employer] DXI Hybritech immunoassay should not be interpreted as absolute evidence of the presence or absence of disease. The PSA value should be used in conjunction with other pertinent clinical diagnostic procedures. The values obtained with different assay methods or kits cannot be used interchangeably. 30 Desirable <150 Borderline high 150-199 High 200-499 Very High >500 31 Desirable <200 Borderline high 200-239 High >239 32 Low <40 Desirable: 40-60 High: >60 33 Desirable: <100 mg/dL Near Optimal: 100-129 mg/dL Borderline High: 130-159 mg/dL High: 160-189 mg/dL Very High: >189 mg/dL 34 FASTING 12 HOUR 35 Desirable <150 Borderline high 150-199 High 200-499 Very High >500 36 Desirable <200 Borderline high 200-239 High >239 37 Low <40 Desirable: 40-60 High: >60 38 Desirable: <100 mg/dL Near Optimal: 100-129 mg/dL Borderline High: 130-159 mg/dL High: 160-189 mg/dL Very High: >189 mg/dL 39 Serum levels of PSA measured using the [employer] DXI Hybritech immunoassay should not be interpreted as absolute evidence of the presence or absence of disease. The PSA value should be used in conjunction with other pertinent clinical diagnostic procedures. The values obtained with different assay methods or kits cannot be used interchangeably. 40 Desirable <150 Borderline high 150-199 High 200-499 Very High >500 41 Desirable <200 Borderline high 200-239 High >239 42 Low <40 Desirable: 40-60 High: >60 43 Desirable: <100 mg/dL Near Optimal: 100-129 mg/dL Borderline High: 130-159 mg/dL High: 160-189 mg/dL Very High: >189 mg/dL 44 FASTING 12 HOUR 45 Serum levels of PSA measured using the [employer] DXI Hybritech immunoassay should not be interpreted as absolute evidence of the presence or absence of disease. The PSA value should be used in conjunction with other pertinent clinical diagnostic procedures. The values obtained with different assay methods or kits cannot be used interchangeably. 46 Desirable: <100 mg/dL Near Optimal: 100-129 mg/dL Borderline High: 130-159 mg/dL High: 160-189 mg/dL Very High: >189 mg/dL 47 Elevated LDL particle concentrations are associated with [...] Large HDL Particle Concentrations were validated by [employer] and the [facility] laboratory at the [facility]. NMR spectra are generated at [facility], [address], [place] [address] and results calculated by [employer] [address] [address] 48 REFERENCE VALUE Desirable: < 200 Borderline high: 200 - 239 High: > sz=094 49 REFERENCE VALUE Normal: <150 Borderline high: 150-199 High: 200-499 Very high: > qw=012 50 REFERENCE VALUE Desirable: <100 Above Desirable: 100-129 Borderline high: 130-159 High: 160-189 Very high: > oz=586 51 REFERENCE VALUE Desirable: <130 Above Desirable: 130-159 Borderline high: 160-189 High: 190-219 Very high: > mq=229 Test Performed by: [place] [address] [employer]eller: Gary Childers II, M.D., Ph.D. 52 Desirable <150 Borderline high 150-199 High 200-499 Very High >500 53 Desirable <200 Borderline high 200-239 High >239 54 Low <40 Desirable: 40-60 High: >60 55 Desirable: <100 mg/dL Near Optimal: 100-129 mg/dL Borderline High: 130-159 mg/dL High: 160-189 mg/dL Very High: >189 mg/dL 56 Test Performed by: [place] [address] Egg Smeller: Gary Childers II, M.D., Ph.D. 57 FASTING 12 HOUR~Please also do LDL particle concentration (LDL particle~subtyping). 58 Desirable <100 Near Optimal 100-129 Borderline high 130-159 High 160-189 Very High >189 59 Test Result Flag Unit RefValue LDL Particles [...] Desirable: <200 Borderline high: 200-239 High: > ld=225 Triglycerides, CDC, P 123 mg/dL REFERENCE VALUE NCEP guidelines (ages 18y and up) Normal: <150 Borderline high: 150-199 High: 200-499 Very high: > om=640 HDL Cholesterol, CDC, P 45 mg/dL REFERENCE VALUE NCEP guidelines (ages 18y and up) Low: <40 Normal: 40-59 High : > or=60 Calculated LDL 144 mg/dL REFERENCE VALUE NCEP guidelines (ages 18y and up) Optimal: <100 Near Optimal: 100-129 Borderline high: 130-159 High: 160-189 Very high: > tl=550 Non-HDL Cholesterol 169 H mg/dL REFERENCE VALUE NCEP guidelines Desirable: <130 Borderline high: 130-159 High: 160-189 Very high: > wq=169 Test Performed by: [address] [address] Egg Smeller: Castillo Mon M.D. 60 LIPOPROT MET PROF 61 LDL Particles NMR w/ Lipids, P LDL [...] Desirable: <200 Borderline high: 200-239 High: > ab=331 Triglycerides, CDC, P 123 mg/dL REFERENCE VALUE NCEP guidelines (ages 18y and up) Normal: <150 Borderline high: 150-199 High: 200-499 Very high: > zv=485 HDL Cholesterol, CDC, P 45 mg/dL REFERENCE VALUE NCEP guidelines (ages 18y and up) Low: <40 Normal: 40-59 High : > or=60 Calculated LDL 144 mg/dL REFERENCE VALUE NCEP guidelines (ages 18y and up) Optimal: <100 Near Optimal: 100-129 Borderline high: 130-159 High: 160-189 Very high: > yf=031 Non-HDL Cholesterol H 169 mg/dL REFERENCE VALUE NCEP guidelines Desirable: <130 Borderline high: 130-159 High: 160-189 Very high: > eh=719 Test Performed by: [place] [address] Egg Smeller: Castillo Mon M.D. 62 Serum levels of PSA measured using the [employer] [place] DXI Hybritech immunoassay should not be interpreted as absolute evidence of the presence or absence of disease. The PSA value should be used in conjunction with other pertinent clinical diagnostic procedures. The values obtained with different assay methods or kits cannot be used interchangeably. 63 RUN DATE: 10/03/13 [facility] LAB LIVE PAGE 1 RUN TIME: [id number] [place] [id number] Specimen Inquiry Name: JESUS HEARD : [address]: Chandu Soriano MD Acct: [id number] Unit: [id number] AGE: 68 Location: [facility] Re10/02/13 SEX: M Status: REG REF SPEC: [id number] CLEMENTE: 10/02/[address] [facility] [address]: Chandu Soriano MD REQ: [id number] RECD: 10/02/13 STATUS: CHRISTELLE DUBOIS DR: Raul Downing MD _ ORDERED: LEVEL IV/4 FINAL DIAGNOSIS 1. Prostate, left apex, biopsy: Benign prostatic tissue. 2. Prostate, left base, biopsy: Benign prostatic tissue. 3. Prostate, right apex, biopsy: Focal high grade prostatic intraepithelial neoplasia. 4. Prostate, right base, biopsy: Benign prostatic tissue. CLINICAL HISTORY 09/02 [place] 6 right base, one focus, no treatment done. PRE-OPERATIVE DIAGNOSIS Prostate carcinoma, moderate enlarged prostate. POST-OPERATIVE DIAGNOSIS PSA 5.56 GROSS DESCRIPTION 1) The specimen is received in formalin labeled Jesus Heard, Left Prostate Lobe Amelia and consists of three, rivera, soft tissue cores ranging from 1.0 x 0.1 cm. to 1.9 x 0.1 cm. Submitted entirely, one cassette. CONTINUED ON NEXT PAGE * ML=Testing performed at Main Lab DEPARTMENT OF PATHOLOGY, [facility] [place], [place] [address] Danny Coates M.D. Director [facility] Permit #[id number] RUN DATE: 10/03/13 [facility] LAB LIVE PAGE 2 RUN TIME: 1638 [facility] [place], [place] [address] Specimen Inquiry Patient: JESUS HEARD [id number] (Continued) GROSS DESCRIPTION (Continued) GROSS DESCRIPTION (Continued) 2) The specimen is received in formalin labeled Jesus Heard, Left Prostate Lobe Base and consists of three, rivera, soft tissue cores ranging from 1.1 x 0.1 cm. to 1.5 x 0.1 cm. Submitted entirely, one cassette. 3) The specimen is received in formalin labeled Jesus Heard, Right Prostate Lobe Amelia and consists of three, rivera, soft tissue [...] performed at Main Lab DEPARTMENT OF PATHOLOGY, [address] [place] [address] Danny Coates M.D. Director [facility] Permit #[id number] FASTING 12 HOUR 65 HDL Interpretation: Undesirable: High Risk: Less than 40 mg/dL Desirable: Low Risk: Greater than 60 mg/dL 66 LDL Interpretation: Low Risk Optimal Level: LDL Less than 100 mg/dL Near or Above Optimal: LDL 100-129 mg/dL Borderline High Risk: LDL 130-159 mg/dL High Risk: LDL 160-189 mg/dL Very High Risk: LDL Greater than 189 mg/dL 67 Serum levels of PSA measured using the [employer] DXI Hybritech immunoassay should not be interpreted as absolute evidence of the presence or absence of disease. The PSA value should be used in conjunction with other pertinent clinical diagnostic procedures. The values obtained with different assay methods or kits cannot be used interchangeably. 68 FASTING 12 HOUR 69 HDL Interpretation: Undesirable: High Risk: Less than 40 mg/dL Desirable: Low Risk: Greater than 60 mg/dL 70 LDL Interpretation: Low Risk Optimal Level: LDL Less than 100 mg/dL Near or Above Optimal: LDL 100-129 mg/dL Borderline High Risk: LDL 130-159 mg/dL High Risk: LDL 160-189 mg/dL Very High Risk: LDL Greater than 189 mg/dL 71 Serum levels of PSA measured using the [employer] DXI Hybritech immunoassay should not be interpreted as absolute evidence of the presence or absence of disease. The PSA value should be used in conjunction with other pertinent clinical diagnostic procedures. The values obtained with different assay methods or kits cannot be used interchangeably. 72 PT IS FASTING 73 HDL Interpretation: Undesirable: High Risk: Less than 40 MG/DL Desirable: Low Risk: Greater than 60 MG/DL 74 LDL Interpretation: Low Risk Optimal Level: LDL Less than 100 MG/DL Near or Above Optimal: LDL 100-129 MG/DL Borderline High Risk: LDL 130-159 MG/DL High Risk: LDL 160-189 MG/DL Very High Risk: LDL Greater than 189 MG/DL 75 Serum levels of PSA measured using the [employer] DXI Hybritech immunoassay should not be interpreted as absolute evidence of the presence or absence of disease. The PSA value should be used in conjunction with other pertinent clinical diagnostic procedures. The values obtained with different assay methods or kits cannot be used interchangeably. 76 CHOLESTEROL INTERPRETATION: Desirable: Less than 200 MG/DL Borderline-High Risk: 200-239 MG/DL High-Risk: 240 MG/DL and over 77 HDL INTERPRETATION: Undesirable: High Risk: Less than 40 MG/DL Desirable: Low Risk: Greater than 60 MG/DL 78 LDL INTERPRETATION: Low Risk Optimal Level: LDL Less than 100 MG/DL Near or Above Optimal: LDL 100-129 MG/DL Borderline High Risk: LDL 130-159 MG/DL High Risk: LDL 160-189 MG/DL Very High Risk: LDL Greater than 189 MG/DL 79 * SERUM LEVELS OF PSA MEASURED USING THE [employer] ACCESS HYBRITECH IMMUNOASSAY SHOULD NOT BE INTERPRETED ABSOLUTE EVIDENCE OF THE PRESENCE OR ABSENCE OF DISEASE. THE PSA VALUE SHOULD BE USED IN CONJUNCTION WITH OTHER PERTINENT CLINICAL DIAGNOSTIC PROCEDURES. 80 NEGATIVE FOR GROUP A BETA STREPTOCOCCUS 81 * SERUM LEVELS OF PSA MEASURED USING THE [employer] ACCESS HYBRITECH IMMUNOASSAY SHOULD NOT BE INTERPRETED ABSOLUTE EVIDENCE OF THE PRESENCE OR ABSENCE OF DISEASE. THE PSA VALUE SHOULD BE USED IN CONJUNCTION WITH OTHER PERTINENT CLINICAL DIAGNOSTIC PROCEDURES. 82 CHOLESTEROL INTERPRETATION: Desirable: Less than 200 MG/DL Borderline-High Risk: 200-239 MG/DL High-Risk: 240 MG/DL and over 83 HDL INTERPRETATION: Undesirable: High Risk: Less than 40 MG/DL Desirable: Low Risk: Greater than 60 MG/DL 84 LDL INTERPRETATION: Low Risk Optimal Level: LDL Less than 100 MG/DL Near or Above Optimal: LDL 100-129 MG/DL Borderline High Risk: LDL 130-159 MG/DL High Risk: LDL 160-189 MG/DL Very High Risk: LDL Greater than 189 MG/DL 85 FASTING 86 * SERUM LEVELS OF PSA MEASURED USING THE [employer] ACCESS HYBRITECH IMMUNOASSAY SHOULD NOT BE INTERPRETED [...] Risk: LDL Greater than 189 MG/DL 90 ---- RUN DATE: 09/16/08 [facility] NMI LIVE PAGE 1 RUN TIME: 1419 Specimen Inquiry RUN USER: INTERFACE -- Name: JESUS HEARD Status: REG REF Re09/12/08 Age/Sex: 63/M Unit#: [id number] Location: [facility]. : 44 -- Specimen: [id number] SOUT Spec Date: 09/12/[address]: Chandu [...] formalin labelled Jesus Heard, Left Prostate Lobe Amelia and consists of three, rivera, soft tissue [...] formalin labelled Jesus Heard, Right Prostate Lobe Amelia and consists of three, rivera, soft tissue cores measuring 2.0 cm., 2.0 cm., and 1.9 x 0.1 cm. Submitted entirely, one cassette. 4) The specimen is received in formalin labelled Jesus Heard, Right Prostate Lobe Base and consists [...] evidence of neoplasia. -- DEPARTMENT OF PATHOLOGY, [address] [place] [address] [facility] Permit #[id number] Juliocesar Wolfe M.D. Lead Simulation Modeling Engineer Dir poon -- -- RUN DATE: 09/16/08 [facility] NMI LIVE PAGE 2 RUN TIME: 1419 Specimen Inquiry RUN USER: INTERFACE -- Name: JESUS HEARD Status: REG REF Re09/12/08 Age/Sex: 63/M Unit#: [id number] Location: [facility] : 44 -- -- CONTINUED -- DIAGNOSIS [...] Signed Electronically by: DANNY COATES MD 09/16/08 5043 -- -- DEPARTMENT OF PATHOLOGY, [address] [place] [address] [facility] Permit #[id number] Juliocesar Wolfe M.D. Lead Simulation Modeling Engineer Dir ayah -- 91 * SERUM LEVELS OF PSA MEASURED USING THE [employer] ACCESS HYBRITECH IMMUNOASSAY SHOULD NOT BE INTERPRETED ABSOLUTE EVIDENCE OF THE PRESENCE OR ABSENCE OF DISEASE. THE PSA VALUE SHOULD BE USED IN CONJUNCTION WITH OTHER PERTINENT CLINICAL DIAGNOSTIC PROCEDURES. 92 ---- RUN DATE: 02/13/08 [facility] NMI LIVE PAGE 1 RUN TIME: 1330 Specimen Inquiry RUN USER: INTERFACE -- Name: JESUS HEARD Status: REG REF Re02/09/08 Age/Sex: 62/M Unit#: [id number] Location: [facility] : 44 -- Specimen: [id number] SOUT Spec Date: 02/09/08 [facility] Dr: Raul yan MD Spec Type: SURGICAL [...] 02/13/08 1330 -- -- DEPARTMENT OF PATHOLOGY, [address] [place] [address] [facility] Permit #[id number] Danny Coates M.D. Director of [place] -- 93 * SERUM LEVELS OF PSA MEASURED USING THE [employer] ACCESS HYBRITECH IMMUNOASSAY SHOULD NOT BE INTERPRETED ABSOLUTE EVIDENCE OF THE PRESENCE OR ABSENCE OF DISEASE. THE PSA VALUE SHOULD BE USED IN CONJUNCTION WITH OTHER PERTINENT CLINICAL DIAGNOSTIC PROCEDURES. 94 CHOLESTEROL INTERPRETATION: Desirable: Less than 200 MG/DL Borderline-High Risk: 200-239 MG/DL High-Risk: 240 MG/DL and over 95 HDL INTERPRETATION: Undesirable: High Risk: Less than 40 MG/DL Desirable: Low Risk: Greater than 60 MG/DL 96 LDL INTERPRETATION: Low Risk Optimal Level: LDL Less than 100 MG/DL Near or Above Optimal: LDL 100-129 MG/DL Borderline High Risk: LDL 130-159 MG/DL High Risk: LDL 160-189 MG/DL Very High Risk: LDL Greater than 189 MG/DL 97 Anion gap measurement may be of limited value in the presence of any alkalosis, especially in a combined acid base disorder. . 98 Please note change in reference range effective 07 . 99 * SERUM LEVELS OF PSA MEASURED USING THE [email or web address] ACCESS HYBRITECH IMMUNOASSAY SHOULD NOT BE INTERPRETED ABSOLUTE EVIDENCE OF THE PRESENCE OR ABSENCE OF DISEASE. THE PSA VALUE SHOULD BE USED IN CONJUNCTION WITH OTHER PERTINENT CLINICAL DIAGNOSTIC PROCEDURES. 100 PLEASE NOTE NEW REFERENCE RANGE EFFECTIVE 05 101 LYNDSEY VALUE=1.85 ( OF 07/08/04) Recommended INR for Patients on Oral Anticoagulants Prophylaxis 2.0 - 3.0 Treatment of thrombosis 2.0 - 3.0 Prevention of embolism 2.0 - 3.0 Prevention of embolism from prosthetic heart valves 2.5 - 3.5 102 Anion gap measurement may be of limited value in the presence of any alkalosis, especially in a combined acid base disorder. . 103 * SERUM LEVELS OF PSA MEASURED USING THE [employer] ACCESS HYBRITECH IMMUNOASSAY SHOULD NOT BE INTERPRETED ABSOLUTE EVIDENCE OF THE PRESENCE OR ABSENCE OF DISEASE. THE PSA VALUE SHOULD BE USED IN CONJUNCTION WITH OTHER PERTINENT CLINICAL DIAGNOSTIC PROCEDURES. 104 Classification: Borderline High . 105 Classification: Low . 106 CALCULATED LDL APPROXIMATES THE VALUE OF A DIRECT LDL MEASUREMENT. Classification: Borderline High . 107 Anion gap measurement may be of limited value in the presence of any alkalosis, especially in a combined acid base disorder. . Procedures Date CPT Code Description Status Comment 07/30/2016 35901 X-Ray, C-Spine, Complete Completed 10/02/2015 92574 X-Ray Finger(S) Two Views Completed 10/02/2015 72787 Apply Splint Finger Static Completed 09/10/2015 08114 Electrocardiogram Complete Completed 10/15/2014 59884 Dexa Bone Density Study One Or Completed More Sites Axial Skeleton 06/13/2012 54102 Destruction Of Skin Lesions Up Completed To 14 Flat Warts/Molluscum Contag 06/02/2011 17254 Destruction Of Skin Lesions Up Completed To 14 Flat Warts/Molluscum Contag 02/09/2008 04856 Destruction Of Skin Lesions Up Completed To 14 Flat Warts/Molluscum Contag 02/09/2008 33946 Shave Skin Lesion .6-1CM Completed Face/Ear/Eyelid/Nose/Lip/Mucou s Membr 12/26/2007 Colonoscopy Completed Normal; Dr Burkett advised repeat 5 yrs (b/o Hx colon polyp- 1 hyperplastic polyp 12/27), but we discussed this 06/18/14; I advised a 10yr f/u and pt agreed w/ this 08/19/2006 47872 X-Ray Knee, Complete Completed 08/05/2004 29877 Electrocardiogram Complete Completed Encounters Type Date Location Provider CPT E/M Dx Office Visit 10/07/2017 1:45p Main Office Raul Downing M.D. 14294 M54.5 Office Visit 03/22/2017 1:30p Main Office Raul Downing M.D. 09389 M54.2 M50.30 K21.9 Office Visit 10/02/2015 10:25a Main Office Gary Mckeno M.D. 09180 S60.042A S56.415A M20.012 Y93.73 S60.00xA Office Visit 09/10/2015 9:45a Main Office Raul Downing M.D. 04287 R06.02 R07.9 Office Visit 07/28/2015 2:00p Main Office Raul Downing M.D. 65962 Z00.01 D48.5 E78.0 Z85.46 R97.2 G25.81 Office Visit 03/14/2015 1:15p Main Office Raul Downing M.D. 68977 E78.0 Z23 Z41.8 R97.2 Z85.46 Office Visit 10/15/2014 10:30a Main Office Raul Downing M.D. 48807 V82.81 272.0 V58.69 Office Visit 06/18/2014 2:00p Main Office Raul Downing M.D. 00510 V70.0 272.0 274.9 V10.46 Office Visit 07/30/2013 12:55p Main Office Raul Downing M.D. 47306 V10.46 790.93 272.0 238.2 786.50 Office Visit 06/15/2013 8:30a Main Office Raul Downing M.D. 16606 V70.0 V10.46 274.9 272.0 238.2 790.93 V75.9 736.1 V06.1 V07.2 Office Visit 06/13/2012 8:55a Main Office Raul Downing M.D. 91212 V70.0 V10.46 530.81 346.00 274.9 702.19 V76.44 Office Visit 10/21/2011 4:30p Main Office Gary Mckeon M.D. 95464 719.46 Office Visit 07/21/2011 8:30a Main Office Raul Downing M.D. 98861 843.8 719.45 Office Visit 06/02/2011 9:45a Main Office Raul Downing M.D. 29184 V70.0 530.81 V10.46 786.2 702.19 Office Visit 05/03/2011 11:00a Main Office Raul Downing M.D. 38894 786.2 461.1 784.1 Office Visit 05/11/2010 9:15a Main Office Raul Downing M.D. 30570 723.1 346.00 Office Visit 02/18/2010 9:45a Main Office Raul Downing M.D. 74902 274.9 272.8 530.81 786.2 V10.46 V70.0 V03.82 V07.2 Office Visit 06/17/2009 11:30a [place] [address] 728.6 702.19 Office Visit 03/21/2009 4:45p Main Office Raul Downing M.D. 37657 562.11 562.10 274.9 Office Visit 03/13/2009 10:15a [place] [address] 562.11 Office Visit 02/17/2009 9:45a Main Office Raul Downing M.D. 38185 274.9 272.8 780.52 530.81 702.19 726.10 V70.0 Office Visit 12/02/2008 4:45p Main Office Raul Downing M.D. 16033 702.19 274.9 Office Visit 02/09/2008 10:45a Main Office Raul Downing M.D. 21694 702.19 272.8 274.9 216.2 Office Visit 01/26/2008 9:45a Main Office Raul Downing M.D. 63196 V70.0 238.2 272.8 V76.44 702.19 786.2 346.00 274.9 V05.8 V07.2 Office Visit 08/19/2006 1:30p Main Office Raul Downing M.D. 27588 719.46 719.06 724.5 780.52 Office Visit 03/15/2006 11:15a Main Office Raul Downing M.D. 02852 786.2 724.5 780.52 Office Visit 01/24/2006 4:00p Main Office Raul Downing M.D. 05172 786.2 Office Visit 09/27/2005 3:00p Main Office Raul Downing M.D. 97806 729.5 603.9 Office Visit 08/02/2005 11:00a Main Office Raul Downing M.D. 36820 702.19 381.01 Office Visit 02/02/2005 8:55a Main Office Raul Downing M.D. 49375 562.11 787.91 751.5 691.8 794.8 Office Visit 11/17/2004 10:45a Main Office Raul Downing M.D. 40610 274.9 307.41 782.1 Office Visit 08/21/2004 9:15a Main Office Raul Downing M.D. 40700 V58.3 717.9 Office Visit 08/05/2004 9:45a Main Office Raul Downing M.D. 55585 717.9 274.9 603.9 V76.44 272.8 Office Visit 05/25/2004 4:30p Main Office Raul Downing M.D. 91822 719.06 238.2 Office Visit 10/29/2003 11:30a Main Office Raul Downing M.D. 65937 380.89 993.2 274.9 Office Visit 05/08/2003 3:45p Main Office Raul Downing M.D. 28973 274.9 790.6 010.00 272.8 V17.4 Plan of Care Future Appointment(s):09/13/2018 8:30 am - Raul Downing M.D. at Main [facility]3610/07/2017 - Raul Downing M.D.M54.5 Low back painComments:Suspected MSK cause. No evidence of nerve impingement. Advised continued chiro/massage care asnd stretches. Advised against any imaging at this time. RTO prn.
[2017-10-11 07:35] VITALS: BP 134/80
--- NOTE | 2017-10-11 08:22 | RAD ---
HISTORY: Pain after lifting COMPARISONS: None VIEWS: 7 , Frontal, lateral neutral, lateral flexion, lateral extension, coned-down lateral sacral, and bilateral oblique views of the lumbar spine. FINDINGS: ALIGNMENT: The alignment is normal. There is no subluxation with flexion and extension. VERTEBRAL BODIES: The vertebral body heights are normal. The interpedicular distances are normal. There is mild anterolateral marginal osteophyte formation. JOINTS: There is facet osteoarthritis most pronounced at L2-L3, L3-L4, L4-L5, L5-S1. INTERVERTEBRAL DISCS: There is mild diffuse loss of intervertebral disc height. SOFT TISSUE: Unremarkable. OTHER: The pelvis is unremarkable. The lung bases are clear. IMPRESSION: EXTENSIVE FACET OSTEOARTHRITIS OF MILD DEGENERATIVE DISC DISEASE.
--- NOTE | 2017-10-11 09:03 | UC ---
Back Pain HPI - HPI Summary HPI Summary: 9 days ago patient picked up a suitcase and twisted. Since then has had sharp pain in his right low back. He denies any numbness or tingling in his legs or feet. No bowel or bladder dysfunction. No saddle anesthesia. Patient sees a chiropractor for chronic neck pain and also a specialist at the orthopedic Center in [place]. It was recommended that he come here to obtain x-rays prior to his appointments. Patient has no previous history of low back pain. - History of Current Complaint Chief Complaint: UCBackPain Stated Complaint: BACK PAIN Time Seen by Provider: 10/11/17 07:41 Hx Obtained From: Patient Onset/Duration: Sudden Onset, Lasting Days, Still Present Timing: Constant Severity Initially: Moderate Severity Currently: Moderate Pain Intensity: 5 Pain Scale Used: 0-10 Numeric Back Pain: Is Discrete @ - RIGHT LOW BACK Character: Sharp - and Aggravating Factor(s): Movement Associated Signs And Symptoms: Negative: Swelling, Redness, Bruising, Weakness, Numbness, Tingling, Bladder Incontinence, Bowel Incontinence - Allergies/Home Medications Allergies/Adverse Reactions: Allergies Allergy/AdvReac Type Severity Reaction Status Date / Time bee venom protein (honey bee) Allergy Anaphylatic Verified 10/11/17 07:35 Shock Home Medications: Home Medications Meloxicam 2 tab PO DAILY 10/11/17 [History Confirmed 10/11/17] PMH/Surg Hx/FS Hx/Imm Hx - Additional Past Medical History Additional PMH: Chronic neck pain - Surgical History Surgical History: Yes Surgery Procedure, Year, and Place: NOSE RECON AT [facility] 1993, LEFT KNEE [place] REPAIR 1998. TRIGGER FINGER/THUMB RIGHT HAND [facility] 2016, LASIK, TONSILS - Family History Known Family History: Positive: Cardiac Disease, Hypertension - Social History Alcohol Use: Rare Substance Use Type: None Smoking Status (MU): Never Smoked Tobacco - Immunization History Most Recent Tetanus Shot: unk Review of Systems Constitutional: Negative Skin: Negative Respiratory: Negative Cardiovascular: Negative Gastrointestinal: Negative Musculoskeletal: Myalgia All Other Systems Reviewed And Are Negative: Yes Physical Exam Triage Information Reviewed: Yes Appearance: Well-Appearing, No Pain Distress, Well-Nourished Vital Signs: Initial Vital Signs Temp 97.6 F 10/11/17 07:29 Pulse 62 10/11/17 07:29 Resp 18 10/11/17 07:29 BP 134/80 10/11/17 07:29 Pulse Ox 98 10/11/17 07:29 Vital Signs Reviewed: Yes Eyes: Positive: Conjunctiva Clear ENT: Positive: Hearing grossly normal Neck: Positive: Supple Respiratory: Positive: No respiratory distress, No accessory muscle use Cardiovascular: Positive: Pulses Normal Abdomen Description: Positive: Soft Musculoskeletal: Positive: ROM Intact, No Edema, Other: - TTP PARASPINOUS MUSCLES RIGHT LOW BACK Neurological: Positive: Alert Psychological: Positive: Age Appropriate Behavior Skin: Negative: rashes Diagnostics - Radiology L-SPINE XRAYS Xray Interpretation: Positive (See Comments) - EXTENSIVE FACET OSTEOARTHRITIS OF MILD DEGENERATIVE DISC DISEASE. Radiology Interpretation Completed By: Radiologist Back Pain Course/Dx - Differential Dx/Diagnosis Provider Diagnoses: ACUTE LOW BACK PAIN Discharge - Sign-Out/Discharge Documenting (check all that apply): Discharge - Discharge Plan Condition: Stable Disposition: HOME Prescriptions: Cyclobenzaprine TAB* [Flexeril TAB*] 10 mg PO BID PRN #30 tab PRN Reason: Pain Patient Education Materials: Acute Low Back Pain (ED) Referrals: Raul Downing MD [Primary Care Provider] - If Needed Additional Instructions: XRAYS TODAY SHOW MILD DEGENERATIVE DISK DISEASE AND OSTEOARTHRITIS. TAKE THE MUSCLE RELAXER NEEDED AND CONTINUE YOUR MELOXICAM PRESCRIBED. BE SURE TO GO THROUGH SLOW RANGE OF MOTION AND STRETCHING EXERCISES DAILY YOU ARE ABLE TO PREVENT STIFFENING UP AND MAKING THE DISCOMFORT WORSE. Follow-up with your chiropractor today and your physicians at the orthopedic Center. Go to the ED without fail if you develop numbness, tingling, noted on bowel or bladder dysfunction or any other concerning symptoms. - Billing Disposition and Condition Condition: STABLE Disposition: HOME
== END 2017-10-11 09:10 | disposition home or self-care (01) ==
LOC: UCEAST 07:20
DX: M54.5 Low back pain (principal); M51.37 Other intervertebral disc degeneration, lumbosacral region; M47.817 Spondylosis without myelopathy or radiculopathy, lumbosacral region
CPT/HCPCS: 72114; 99212; G0463

== ENCOUNTER 2018-09-08 15:17 | Emergency (ER) | payer MEDICARE, BC ==
[2018-09-08] MEDS ORDERED: Al Hydrox/Mg Hydrox/Simet LIQ* 30 ML UDC PO ONE (15:32)
[2018-09-08] MEDS ORDERED: Ondansetron INJ* 2 MG/ML VIAL IV ONE (15:32)
[2018-09-08] MEDS ORDERED: NS 0.9% 1000 ML** 1,000 ML IV ONE (15:32)
[2018-09-08 15:51] LABS: ABS Basophils 0.1 10^3/ul (0-0.2); ABS Eosinophils 0.3 10^3/ul (0-0.6); ABS Lymphocytes 1.3 10^3/ul (1.0-4.8); ABS Monocytes 0.7 10^3/ul (0-0.8); ABS Neutrophils 7.8 10^3/ul (1.5-7.7); ABS Nucleated RBC 0 10^3/ul; Eosinophil % 2.7 %; Hematocrit 42 % (36-46); Hemoglobin 14.5 g/dL (14.0-18.0); Lymphocyte % 12.5 %; Mean Corpuscular HGB Conc 34 g/dL (31-36); Mean Corpuscular Hemoglobin 32 pg (27-31); Mean Corpuscular Volume 94 fL (80-94); Mean Platelet Volume 7.8 fL (7.4-10.4); Nucleated Red Blood Cells % 0; Platelet Count 206 10^3/uL (150-450); Red Blood Count 4.51 10^6 /uL (4.18-5.48); Red Cell Distribution Width 14 % (10.5-15); White Blood Count 10.2 10^3/uL (3.5-10.8)
[2018-09-08] MEDS ORDERED: Meclizine TAB* 12.5 MG PO ONE (16:07)
[2018-09-08 16:12] LABS: Albumin 3.8 g/dL (3.2-5.2); Albumin/Globulin Ratio 1.4 (1-3); BUN/Creatinine Ratio 23.5 (8-20); C Reactive Protein 14.28 mg/L (<8.01); Calcium 8.8 mg/dL (8.6-10.3); EGFR African American 90.5 (>60); EGFR Non-African American 74.8 (>60); Globulin 2.7 g/dL (2-4); Potassium 3.6 mmol/L (3.5-5.0); Total Bilirubin 0.5 mg/dL (0.2-1.0); Total Protein 6.5 g/dL (6.4-8.9)
[2018-09-08 16:41] LABS: Troponin I 0.01 ng/mL (<0.04)
[2018-09-08] MEDS ORDERED: Acetaminophen TAB* 325 MG PO ONE (16:59)
--- NOTE | 2018-09-08 16:59 | ED ---
Dizziness - HPI Summary HPI Summary: Patient is a 73-year-old male presenting to the ED with acute onset of nausea and vomiting while at the library this afternoon. He states before he arrived to the library, he was feeling well. He was able to eat and drink this morning. After having one episode of nausea and vomiting, he stated he felt very weak. EMS was called and brought him to the ED. On arrival, patient is denying any abdominal pain or feeling of nauseousness, however is endorsing dizziness and a feeling of a "full head." He states he's never had anything like this before. He denies sick contacts. He denies subjective fevers, sweats , chills. He states he is otherwise healthy and takes only Crestor and allopurinol. He denies cardiac history. Symptoms are not aggravated with positioning and are alleviated mostly with rest, however, he continues to have head pain. This is rated a 3/10 and is described as a pressure. He denies any back pain or urinary symptoms. He denies any CP or SOB. - History Of Current Complaint Chief Complaint: EDNauseaVomitDiarrh Stated Complaint: VOMITING PER EMS Time Seen by Provider: 09/08/18 15:31 Hx Obtained From: Patient Timing: Constant Severity Initially: Mild Severity Currently: Mild Character: Lightheaded Aggravating Factor(s): Nothing Alleviating Factor(s): Nothing Associated Signs And Symptoms: Positive: Nausea, Vomiting - Risk Factors Cardiac Risk Factors: Negative CVA Risk Factor: Negative - Allergies/Home Medications Allergies/Adverse Reactions: Allergies Allergy/AdvReac Type Severity Reaction Status Date / Time bee venom protein (honey bee) Allergy Anaphylatic Verified 09/08/18 15:32 Shock PMH/Surg Hx/FS Hx/Imm Hx Previously Healthy: Yes Endocrine/Hematology History: Denies: Hx Diabetes, Hx Thyroid Disease Cardiovascular History: Denies: Hx Hypertension, Hx Pacemaker/ICD Respiratory History: Denies: Hx Asthma, Hx Chronic Obstructive Pulmonary Disease (COPD) GI History: Denies: Hx Ulcer History: Denies: Hx Dialysis, Hx Renal Disease Sensory History: Reports: Hx Hearing Aid Psychiatric History: Denies: Hx Panic Disorder - Surgical History Surgery Procedure, Year, and Place[place] [facility] [place] LEFT KNEE CARTLIDGE REPAIR 1998. TRIGGER FINGER/THUMB RIGHT HAND [facility] 2015, LASIK, TONSILS - Immunization History Hx Pertussis Vaccination: No Immunizations Up to Date: Yes Infectious Disease History: Unable to Obtain/Confirm Infectious Disease History: Reports: Hx Hepatitis - HEP A Denies: Hx Clostridium Difficile, Hx Human Immunodeficiency Virus (HIV), Hx of Known/Suspected MRSA, Hx Shingles, Hx Tuberculosis, Hx Known/Suspected VRE, Hx Known/Suspected VRSA, History Other Infectious Disease, Traveled Outside the [place] in Last 30 Days - Family History Known Family History: Positive: Cardiac Disease, Hypertension Family History: NON CONTRIBUTORY - Social History Occupation: Employed Full-time Lives: With Family Alcohol Use: Rare Hx Substance Use: No Substance Use Type: Reports: None Hx Tobacco Use: No Smoking Status (MU): Never Smoked Tobacco Review of Systems Negative: Fever, Chills, Fatigue Negative: Palpitations, Chest Pain Negative: Shortness Of Breath, Cough Positive: Abdominal Pain, Vomiting, Nausea. Negative: Diarrhea Genitourinary: Negative Positive: no symptoms reported, see HPI Negative: Arthralgia, Myalgia Skin: Negative Neurological: Negative All Other Systems Reviewed And Are Negative: Yes Physical Exam Triage Information Reviewed: Yes Vital Signs On Initial Exam: Initial Vitals Temp Pulse Resp BP Pulse Ox 97.7 F 54 14 129/83 93 09/08/18 15:26 09/08/18 15:26 09/08/18 15:26 09/08/18 15:26 09/08/18 15:26 Vital Signs Reviewed: Yes Appearance: Positive: Well-Appearing, Well-Nourished Skin: Positive: Warm, Skin Color Reflects Adequate Perfusion Head/Face: Positive: Normal Head/Face Inspection Eyes: Positive: EOMI, SYEDA, Conjunctiva Clear Neck: Positive: Supple, No Lymphadenopathy Respiratory/Lung Sounds: Positive: Clear to Auscultation, Breath Sounds Present Cardiovascular: Positive: RRR, Pulses are Symmetrical in both Upper and Lower Extremities Musculoskeletal: Positive: Normal, Strength/ROM Intact Neurological: Positive: Sensory/Motor Intact, Alert, Oriented to Person Place, Time, Speech Normal Psychiatric: Positive: Normal, Affect/Mood Appropriate AVPU Assessment: Alert Diagnostics - Vital Signs Vital Signs Temp Pulse Resp BP Pulse Ox 09/08/18 15:26 97.7 F 54 14 129/83 93 - Laboratory Lab Results: Lab Results 09/08/18 09/08/18 09/08/18 Range/Units 15:45 15:45 15:45 WBC 10.2 (3.5-10.8) 10^3/uL RBC 4.51 (4.18-5.48) 10^6 /uL Hgb 14.5 (14.0-18.0) g/dL Hct 42 (36-46) % MCV 94 (80-94) fL MCH 32 H (27-31) pg MCHC 34 (31-36) g/dL RDW 14 (10.5-15) % Plt Count 206 (150-450) 10^3/uL MPV 7.8 (7.4-10.4) fL Neut % (Auto) 77.0 % Lymph % (Auto) 12.5 % [place] % (Auto) 6.9 % Eos % (Auto) 2.7 % Baso % (Auto) 0.9 % Absolute Neuts (auto) 7.8 H (1.5-7.7) 10^3/ul Absolute Lymphs (auto) 1.3 (1.0-4.8) 10^3/ul Absolute Monos (auto) 0.7 (0-0.8) 10^3/ul Absolute Eos (auto) 0.3 (0-0.6) 10^3/ul Absolute Basos (auto) 0.1 (0-0.2) 10^3/ul Absolute Nucleated RBC 0 10^3/ul Nucleated RBC % 0 Sodium 138 (135-145) mmol/L Potassium 3.6 (3.5-5.0) mmol/L Chloride 107 (101-111) mmol/L Carbon Dioxide 25 (22-32) mmol/L Anion Gap 6 (2-11) mmol/L BUN 23 (6-24) mg/dL Creatinine 0.98 (0.67-1.17) mg/dL Est GFR ( Amer) 90.5 (>60) Est GFR (Non-Af Amer) 74.8 (>60) BUN/Creatinine Ratio 23.5 H (8-20) Glucose 129 H (70-100) mg/dL Lactic Acid 0.9 (0.5-2.0) mmol/L Calcium 8.8 (8.6-10.3) mg/dL Magnesium 2.0 (1.9-2.7) mg/dL Total Bilirubin 0.50 (0.2-1.0) mg/dL AST 25 (13-39) U/L ALT 26 (7-52) U/L Alkaline Phosphatase 77 (34-104) U/L Troponin I 0.01 (<0.04) ng/mL C-Reactive Protein 14.28 H (<8.01) mg/L Total Protein 6.5 (6.4-8.9) g/dL Albumin 3.8 (3.2-5.2) g/dL Globulin 2.7 (2-4) g/dL Albumin/Globulin Ratio 1.4 (1-3) Lipase 15 (11.0-82.0) U/L Result Diagrams: 09/08/18 15:45 09/08/18 15:45 Lab Statement: Any lab studies that have been ordered have been reviewed, and results considered in the medical decision making process. Dizzy Course/Dx - Course Course Of Treatment: During this patient's course of treatment, patient is evaluated for acute onset nausea and vomiting. After arrival from EMS, he is endorsing pressure and dizziness, but denies any nausea, abdominal pain, constipation or diarrhea. 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 He has not been on any new medications and has not eaten anything out of the ordinary. Patient was able to eat breakfast and lunch today. He denies any abdominal pain, nausea or vomiting at that time. Last bowel movement this morning. He is currently endorsing feeling of dizziness and patient is given meclizine with resolve. Labs obtained which are all WNL except for a slightly elevated CRP likely secondary to his vomiting. UA obtained. Chest x-ray obtained. He is given fluids and Zofran. He G obtained which shows a sinus rhythm, however bradycardic. On physical examination, patient appears well and nontoxic in appearing. Lungs CTA, RRR, no abdominal tenderness throughout on deep palpation. No CVA tenderness. Pulses +2 intact bilaterally and there are no other signs of dehydration. Good cap refill. Patient states he is feeling much improved. He is laughing and joking with and states he is at his baseline. He is stable upon discharge and would be diagnosed with dehydration. Patient does admit he had a long hard game of tennis and was wearing his winter coat when it was hot out which he believes instigated his symptoms. - Diagnoses Provider Diagnoses: Dehydration Discharge - Sign-Out/Discharge Documenting (check all that apply): Patient Departure Patient Received Moderate/Deep Sedation with Procedure: No - Discharge Plan Condition: Stable Disposition: HOME Patient Education Materials: Dehydration (ED) Referrals: Raul Downing MD [Primary Care Provider] - Additional Instructions: As discussed, it appears your dehydrated All labs, EKG, chest x-ray are all within normal limits Drink plenty of water today and rest - Billing Disposition and Condition Condition: STABLE Disposition: Home
[2018-09-08 17:08] LABS: Influenza A Molecular NEGATIVE (Negative); Influenza B Molecular NEGATIVE (Negative)
[2018-09-08 17:41] VITALS: BP 143/78
== END 2018-09-08 17:40 | disposition home or self-care (01) ==
LOC: ED 15:17
DX: E86.0 Dehydration (principal); R42 Dizziness and giddiness; Z91.030 Bee allergy status
CPT/HCPCS: 36415; 71046; 80053; 83605; 83690; 83735; 84484; 85025; 86140; 87651; 93005; 96360; 99283; A9270-GY; J2405

== ENCOUNTER 2019-04-29 06:53 | Emergency (ER) | payer MEDICARE, BC ==
--- OUTSIDE RECORDS SUMMARY | 2019-04-29 07:02 | XMS REPORT | Continuity of Care Document ---
:1945 External Reference #:[id number] Author Name Raul Downing M.D. Address [address] [facility] [address] [place] [address] Care Team Providers Name Role Phone HCP given Care Team Information Pasteuriser Operator Unavailable Leatha Wilson MD - Dermatology Care Team Information Pasteuriser Operator Chandu Soriano MD - Urology Care Team Information Pasteuriser Operator [phone] Tj Red MD - Plastic and Care Team Information Pasteuriser Operator [phone] Reconstructive Surgery Verónica Pizarro MD - Orthopaedic Care Team Information Pasteuriser Operator [phone] Surgery [facility] - Hearing and Care Team Information Pasteuriser Operator Speech Latrell Walls DC - Chiropractor Care Team Information Pasteuriser Operator [phone] Kunal Pineda MD Care Team Information Pasteuriser Operator [phone] [facility] - Care Team Information Pasteuriser Operator [phone] Gastroenterology Willie Patino MD - Care Team Information Pasteuriser Operator [phone] Otolaryngology Problems Active Problems Provider Date Migraine with typical aura Raul Downing M.D. Onset: 05/11/2010 Gastroesophageal reflux disease Raul Downing M.D. Onset: 06/02/2011 History of malignant neoplasm of prostate Raul Downing M.D. Onset: 2010 Gout Raul Downing M.D. Onset: 06/13/2012 Pure hypercholesterolemia Raul Downing M.D. Onset: 09/12/2017 History of malignant neoplasm of skin Raul Downing M.D. Onset: 09/13/2018 Meniere's disease, left ear Raul Downing M.D. Onset: 11/13/2018 Social History Type Date Description Comments Sex Unknown Tobacco Use Start: Unknown Denies Cigarette Use ETOH Use Rarely consumes alcohol Recreational Drug Use Never Used Drugs Tobacco Use Start: Unknown Non Smoker Smoking Status Reviewed: 09/13/18 Non Smoker Exercise Type/Frequency Exercises regularly Sun Exposure moderate amount of sun exposure Sun Exposure Uses sunscreen Seat Belt/Car Seat always uses seat belt Allergies, Adverse Reactions, Alerts Description No Known Drug Allergies Medications Active Medications SIG Qnty Indications Ordering Date Provider PT For Lumbar evaluate and treat, [place], 03/08/2019 Radiculopathy modalities as Juliocesar Carter needed, instruct in hep PT For R Achilles evaluate and treat, [place], 12/11/2018 Tendon Pain instruct in hep, Juliocesar Carter modalities prn Alfuzosin HCL ER 1 tablet by mouth 90tabs Unknown 06/16/2018 10mg daily Tablets ER 24HR Rosuvastatin Calcium take 1 tablet by 90tabs E78.00 [place], 06/14/2018 mouth once daily Juliocesar Carter 5mg Tablets for High Cholesterol Omeprazole take 1 capsule by 90caps [place], 02/28/2018 20mg mouth once daily Juliocesar Carter Capsules DR While Taking Meloxicam Regularly For GI Protection Meloxicam 1 tablet daily, if 90tabs M54.2 [place], 03/21/2017 7.5mg Tablets needed, for chronic Juliocesar Carter neck pain M50.30 Melatonin prn OTC Unknown 06/14/2013 Capsules Allopurinol take 1 tablet by 90tabs M10.9 Raul Downing, 02/17/2009 300mg Tablets mouth once daily M.DBrendan to prevent gout Multivitamins 1 po qd Unknown Tablets Immunizations CPT Code Status Date Vaccine Lot # [id number] Given 04/20/2018 Shingrix Zoster (Shingles) Vaccine (HZV) Recomb,Subnit,Adjuvanted 78757 Given 09/13/2017 Shingrix Zoster (Shingles) Vaccine (HZV) Recomb,Subnit,Adjuvanted 63811 Given 03/10/2017 Influenza Vaccine Split Virus Preservative Free [place] Use 63673 Given 03/14/2015 Prevnar 13 [id number] 02106 Given 06/15/2013 Adacel or Boostrix, TDaP [id number] 72549 Given 04/19/2011 Flu, Split Virus 3Yrs 90443 Given 02/18/2010 Pneumococcal Immunization [id number] 31998 Given 01/26/2008 Zostavax [id number] 24719 Given 06/27/2002 Td Immunization 96585 Given 06/27/2002 Flu, Split Virus 3Yrs 04753 Given 06/27/1989 Hepatitis B Immunization Vital Signs Date Vital Result Comment 03/07/2019 10:12am BP Systolic 128 mmHg BP Diastolic 70 mmHg Weight 186.00 lb 01/08/2019 5:46pm BP Systolic 132 mmHg BP Diastolic 70 mmHg Weight 189.00 lb Results Test Date Facility Test Result H/L Range Note Rapid Influenza 09/08/2018 [facility] Influenza A NEGATIVE Negative 1 A & B Molecular [phone] Molecular Influenza B Molecular NEGATIVE Negative Laboratory test 09/08/2018 [facility] Rapid Strep Negative Negative 2 finding [phone] Molecular Laboratory test 09/08/2018 [facility] Rapid Influenza SEE RESULT 3 finding [phone] A B Antigen BELOW Rapid Strep A Request SEE RESULT BELOW 4 Comp Metabolic Panel 09/08/2018 [facility] Sodium 138 mmol/L Normal 135-145 [phone] Potassium 3.6 mmol/L Normal 3.5-5.0 Chloride 107 mmol/L Normal 101-111 Co2 Carbon Dioxide 25 mmol/L Normal 22-32 Anion Gap 6 mmol/L Normal 2-11 Glucose 129 mg/dL High 70-100 Blood Urea Nitrogen 23 mg/dL Normal 6-24 Creatinine 0.98 mg/dL Normal 0.67-1.17 BUN/Creatinine Ratio 23.5 High 8-20 Calcium 8.8 mg/dL Normal 8.6-10.3 Total Protein 6.5 g/dL Normal 6.4-8.9 Albumin 3.8 g/dL Normal 3.2-5.2 Globulin 2.7 g/dL Normal 2-4 Albumin/Globulin Ratio 1.4 Normal 1-3 Total Bilirubin 0.50 mg/dL Normal 0.2-1.0 Alkaline Phosphatase 77 U/L Normal 34-104 Alt 26 U/L Normal 7-52 Ast 25 U/L Normal 13-39 Egfr Non- 74.8 >60 Egfr 90.5 >60 5 Laboratory test 09/08/2018 [facility] Magnesium 2.0 mg/dL Normal 1.9- 2.7 finding [phone] Lipase 15 U/L Normal 11.0-82.0 C Reactive Protein 14.28 mg/L High <8.01 CBC Auto Diff 09/08/2018 [facility] White Blood 10.2 10^3/uL Normal 3.5-10.8 [phone] Count Red Blood Count 4.51 10^6/uL Normal 4.18-5.48 Hemoglobin 14.5 g/dL Normal 14.0-18.0 Hematocrit 42 % Normal 36-46 Mean Corpuscular Volume 94 fL Normal 80-94 Mean Corpuscular Hemoglobin 32 pg High 27-31 Mean Corpuscular HGB Conc 34 g/dL Normal 31-36 Red Cell Distribution Width 14 % Normal 10.5-15 Platelet Count 206 10^3/uL Normal 150-450 Mean Platelet Volume 7.8 fL Normal 7.4-10.4 Abs Neutrophils 7.8 10^3/uL High 1.5-7.7 Abs Lymphocytes 1.3 10^3/uL Normal 1.0-4.8 Abs Monocytes 0.7 10^3/uL Normal 0-0.8 Abs Eosinophils 0.3 10^3/uL Normal 0-0.6 Abs Basophils 0.1 10^3/uL Normal 0-0.2 Abs Nucleated RBC 0 10^3/uL Granulocyte % 77.0 % Lymphocyte % 12.5 % Monocyte % 6.9 % Eosinophil % 2.7 % Basophil % 0.9 % Nucleated Red Blood Cells % 0 Laboratory test 09/08/2018 [facility] Lactic Acid 0.9 mmol/L Normal 0.5-2.0 6 finding [phone] Troponin-I (TnI) 0.01 ng/mL <0.04 7 Lipid Profile (Trig/Chol/HDL) 09/06/2018 [facility] Triglycerides 102 mg/dL 8 [phone] Cholesterol 124 mg/dL 9 HDL Cholesterol 39.5 mg/dL 10 LDL Cholesterol 64 mg/dL 11 Laboratory test finding 09/06/2018 [facility] Alt (SGPT) 29 U/L Normal 7-52 [phone] PSA Diagnostic 7.447 ng/mL High 0-4.000 12 Uric Acid 4.5 mg/dL Normal 4.4-7.6 1 Hub Bander: [id number] 2 Hub Bander: [id number] 3 SEE RESULT BELOW Name: JV HEARD : [address]: Pernell Dent MD Acct: [id number] Unit: [id number] AGE: 73 Location: ED Re09/08/18 SEX: M Status: REG ER SPEC: [id number] CLEMENTE: 09/08/[address]: Yareli PHAN REQ: [id number] RECD: 09/08/18 STATUS: LELO DUBOIS DR: Raul Dent MD _ SOURCE: NASAL SPDESC: ORDERED: Flu A B Request Procedure Result Reported Site Rapid Influenza A B Request Final 09/08/18- 1652 ML Specimen received for Influenza A/B Molecular testing * ML - Main Lab . END OF REPORT DEPARTMENT OF PATHOLOGY, [address] [place] [address] Danny Coates M.D. Director [facility] # [id number] 4 SEE RESULT BELOW Name: JV HEARD : [address]: Pernell Dent MD Acct: [id number] Unit: [id number] AGE: 73 Location: ED Re09/08/18 SEX: M Status: REG ER SPEC: [id number] CLEMENTE: 09/08/[address]: Yareli PHAN REQ: [id number] RECD: 09/08/18 STATUS: LELO DUBOIS DR: Raul Dent MD _ SOURCE: THROAT SPDESC: ORDERED: Strep A Request Procedure Result Reported Site Rapid Strep A Request Final 09/08/181652 ML Specimen received for Rapid Strep A Molecular testing * ML - Main Lab . END OF REPORT DEPARTMENT OF PATHOLOGY, [address] [place] [address] Danny Coates M.D. Director [facility] # [id number] 5 Because ethnic data is not always readily [...] 15-29 5 Kidney failure <15 (or dialysis) 6 [facility] Severe Sepsis and Septic Shock Management Bundle Measure requires all lactic acids initially measuring >2.0 mmol/L be repeated. 7 Troponin-I testing on Plasma Separator Tubes (PST) has a known false positive rate of 0.20-0.40%. All positive troponins reflex immediate secondary confirmatory testing. 8 Desirable: <150 Borderline High: 150-199 High: 200-499 Very High: >500 9 Desirable: <200 Borderline High: 200-239 High: >239 10 Low: <40 Desirable: 40-60 High: >60 11 Desirable: <100 Near Optimal: 100-129 Borderline High: 130-159 High: 160-189 Very High: >189 12 Serum levels of PSA measured using the Arianna Claudia DXI Hybritech immunoassay should not be interpreted as absolute evidence of the presence or absence of disease. The PSA value should be used in conjunction with other pertinent clinical diagnostic procedures. The values obtained with different assay methods or kits cannot be used interchangeably. Procedures Date Code Description Status 12/09/2017 62494098 Colonoscopy Completed Medical Devices Description No Information Available Encounters Type Date Location Provider Dx Diagnosis Office Visit 03/07/2019 Main Office Raul Downing, M54.16 Radiculopathy, 10:15a M.D. lumbar region E78.00 Pure hypercholesterolemia, unspecified Office Visit 01/08/2019 4:45p Main Office [place] G43.109 Migraine with auraRaul M.D. not intractable, w/o status migrainosus H81.02 Meniere's disease, left ear Office Visit 11/13/2018 3:30p Main Office Raul Downing, H26.9 Unspecified M.DBrendan cataract H93.12 Tinnitus, left ear H61.21 Impacted cerumen, right ear H81.02 Meniere's disease, left ear Z01.818 Encounter for other preprocedural examination Z68.27 Body mass index (BMI) 27.0-27.9, adult Assessments Date Code Description Provider 03/07/2019 M54.16 Radiculopathy, lumbar region Raul Downing M.D. 03/07/2019 E78.00 Pure hypercholesterolemia, unspecified Raul Downing M.D. 01/08/2019 G43.109 Migraine with aura, not intractable, without Raul Downing M.D. status migraino 01/08/2019 H81.02 Meniere's disease, left ear Raul Downing M.D. 11/13/2018 H26.9 Unspecified cataract Raul Downing M.D. 11/13/2018 H93.12 Tinnitus, left ear Raul Downing M.D. 11/13/2018 H61.21 Impacted cerumen, right ear Raul Downing M.D. 11/13/2018 H81.02 Meniere's disease, left ear Raul Downing M.D. 11/13/2018 Z01.818 Encounter for other preprocedural Raul Downing M.D. examination 11/13/2018 Z68.27 Body mass index (BMI) 27.0-27.9, adult Raul Downing M.D. 09/13/2018 Z00.00 Encounter for general adult medical Raul Downing M.D. examination without abno 09/13/2018 Z85.46 Personal history of malignant neoplasm of Raul Downing M.D. prostate 09/13/2018 E78.00 Pure hypercholesterolemia, Raul Acosta M.D. 09/13/2018 M10.9 Gout, Raul Acosta M.D. 09/13/2018 Z85.828 Personal history of other malignant neoplasm Raul Downing M.D. of skin 09/13/2018 M50.30 Other cervical disc degeneration, Raul Downing M.D. unspecified cervical regio 09/13/2018 Z68.27 Body mass index (BMI) 27.0-27.9, adult Raul Downing M.D. Plan of Treatment Future Appointment(s):03/09/2019 1:30 pm - Radiology, Dexa & X-Ray at Main Prvcbr3409/17/2019 9:45 am - Raul Downing M.D. at Main Vwelkd9403/07/2019 - Raul Downing M.D.M54.16 Radiculopathy, lumbar regionComments:COunseled re suspected Dx of lumbar nerve root source radiculopathy. He is missing his achilles reflex but has no obvious weakness or sensory loss. He is going to continue w/ chiro care. Counseled re doing back extensions and pelvic glides. Discussed option of steroids, lack of sig benefit on studiesin general. He notes he has a course of methylprednisolone at home (prev Rx'd by a doc at [facility] for his neck but he never took it) and may consider trying it. Continue w/ NSAIDs. If not improving into next week he will call back for PT referral. RTO prn if Sxs worsening or not improving w/ above over the course of 4-6 weeks.E78.00 Pure hypercholesterolemia, unspecified Functional Status Description No Information Available Mental Status Description No Information Available Referrals Refer to Reason for Referral Status Appt Date Willie Patino MD Pt w/ longstanding hearing loss and Sent 01/02/2019 tinnitus L ear, has had infrequent but recurrent episodes of severe vertigo, all short lived. Suspected Meniere's dz. Also noted to hvae R ear cerumen impaction. Consult and Co-treatment [facility] [address] [place] [address] [phone]
--- OUTSIDE RECORDS SUMMARY | 2019-04-29 07:02 | XMS REPORT | Continuity of Care Document ---
:1945 External Reference #:[id number] Author Name Raul Downing M.D. Address [address] [facility] [address] [place] [address] Care Team Providers Name Role Phone HCP given Care Team Information Pyridine Recovery Operator Unavailable Leatha Wilson MD - Dermatology Care Team Information Pyridine Recovery Operator Chandu Soriano MD - Urology Care Team Information Pyridine Recovery Operator [phone] Tj Red MD - Plastic and Care Team Information Pyridine Recovery Operator Reconstructive Surgery Verónica Pizarro MD - Orthopaedic Care Team Information Pyridine Recovery Operator Surgery [facility] - Hearing and Care Team Information Pyridine Recovery Operator [phone] Speech Latrell Walls DC - Chiropractor Care Team Information Pyridine Recovery Operator Kunal Pineda MD Care Team Information Pyridine Recovery Operator [phone] [facility] - Care Team Information Pyridine Recovery Operator [phone] Gastroenterology Willie Patino MD - Care Team Information Pyridine Recovery Operator [phone] Otolaryngology Problems Active Problems Provider Date Migraine [...] Date Description Comments Sex Unknown Tobacco Use Reviewed: 04/27/19 Denies Cigarette Use Smoking Status Reviewed: 04/27/19 Denies Cigarette Use ETOH Use Rarely consumes alcohol Recreational Drug Use Never Used Drugs Tobacco Use Start: Unknown Non Smoker Exercise Type/Frequency Exercises regularly Sun Exposure moderate amount of sun exposure Sun Exposure Uses sunscreen Seat Belt/Car Seat always uses seat belt Allergies, Adverse Reactions, Alerts Description No Known Drug Allergies Medications Active Medications SIG Qnty Indications Ordering Date Provider Diazepam 1 tab by mouth 30tabs M62.830 , 04/27/2019 5mg Tablets every 6 hours as Juliocesar Carter needed for back spasms PT For Lumbar evaluate and treat, [place], 03/08/2019 Radiculopathy modalities as Juliocesar Carter needed, instruct in hep PT For R Achilles evaluate and treat, [place], 12/11/2018 Tendon Pain instruct in hepRaul M.D. modalities prn Alfuzosin HCL ER 1 tablet by mouth 90tabs N40.1 [place], 06/16/2018 10mg daily for enlarged Juliocesar Carter Tablets ER 24HR prostate Rosuvastatin Calcium take 1 tablet by 90tabs [...] CPT Code Status Date Vaccine Lot # [id number] Given 03/28/2019 Influenza Vaccine, Inactivated, Subunit, Adjuvanted, For Intrmusc 57043 Given 04/20/2018 Shingrix Zoster (Shingles) Vaccine (HZV) Recomb,Subnit,Adjuvanted 68610 Given 09/13/2017 Shingrix Zoster (Shingles) Vaccine (HZV) Recomb,Subnit,Adjuvanted 36908 Given 03/10/2017 Influenza Vaccine Split Virus Preservative Free [place] Use 44716 Given 03/14/2015 Prevnar 13 [id number] 11704 Given 06/15/2013 Adacel or Boostrix, TDaP [id number] 57911 Given 04/19/2011 Flu, Split Virus 3Yrs 45188 Given 02/18/2010 Pneumococcal Immunization [id number] 01119 Given 01/26/2008 Zostavax [id number] 56354 Given 06/27/2002 Td Immunization 94418 Given 06/27/2002 Flu, Split Virus 3Yrs 87657 Given 06/27/1989 Hepatitis B Immunization Vital Signs Date Vital Result Comment 04/27/2019 2:14pm BP Systolic 146 mmHg BP Diastolic 80 mmHg 03/07/2019 10:12am BP Systolic 128 mmHg BP Diastolic 70 mmHg Weight 186.00 lb Results Description No Information Available Procedures Date Code Description Status 03/09/2019 00152 Dexa Bone Density Study One Or More Sites Axial Completed Skeleton 12/09/2017 89284475 Colonoscopy Completed Medical Devices Description No Information Available Encounters Type Date Location Provider Dx Diagnosis Office Visit 04/27/2019 Main Office Raul Downing M54.9 Dorsalgia, 1:45p MMarie unspecified M41.30 Thoracogenic scoliosis, site unspecified M62.830 Muscle spasm of back R20.8 Other disturbances of skin sensation Office Visit 03/07/2019 10:15a Main Office [place] M54.16 Radiculopathy, lumbar Juliocesar Carter region E78.00 Pure hypercholesterolemia, unspecified Z71.89 Other specified counseling Office Visit 01/08/2019 4:45p Main Office [place] G43.109 Migraine with auraRaul M.D. 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 04/27/2019 M41.30 Thoracogenic scoliosis, site unspecified Raul Downing M.D. 04/27/2019 M62.830 Muscle spasm of back Raul Downing M.D. 04/27/2019 R20.8 Other disturbances of skin sensation Raul Downing M.D. 03/09/2019 Z13.820 Encounter for screening for osteoporosis Radiology, Dexa & X-Ray 03/07/2019 M54.16 Radiculopathy, lumbar region Raul Downing M.D. 03/07/2019 E78.00 Pure hypercholesterolemia, unspecified Raul Downing M.D. 03/07/2019 Z71.89 Other specified counseling Raul Downing M.D. 01/08/2019 G43.109 Migraine with aura, not intractable, Raul Downing M.D. 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 11/13/2018 H26.9 Unspecified cataract Raul Downing M.D. 11/13/2018 H93.12 Tinnitus, left ear Raul Downing M.D. 11/13/2018 H61.21 Impacted cerumen, right ear Raul Downing M.D. 11/13/2018 H81.02 Meniere's disease, left ear Raul oDwning M.D. 11/13/2018 Z01.818 Encounter for other preprocedural Raul Downing M.D. examination 11/13/2018 Z68.27 Body mass index (BMI) 27.0-27.9, adult Raul Downing M.D. Plan of Treatment Future Appointment(s):09/17/2019 9:45 am - Raul Downing M.D. at [facility]/27/2019 - Raul Downing M.D.M54.9 Dorsalgia, unspecifiedNew Xrays: MRI Thoracic Spine W/O Contrast, Ordered: 04/27/19Comments:R sided thoracic area back pain w/ assoc muscle spasm. He has seen Nay Álvarez about his back incl both lumbar and this R sided thoracic area pain. Encouraged him to do pool based exercises. Will arrange MRI then consider referral to pain clinic. Discussed use of diazepam for very painful flares, reviewed risk of sedation, not to drive on it, use sparingly.M41.30 Thoracogenic scoliosis, site [id number] Muscle spasm of backNew Medication:Diazepam 5 mg - 1 tab by mouth every 6 hours as needed for back wimdkvH54.8 Other disturbances of skin sensationComments:WRT area of abnormal sensation on r distal anterolat thigh, while LCFNS is a possibility, the Sxs are more distal than would be expected with this, and his ongoing back pain and HX of radiculopathy make a spine source more likely. In any case the sensory disturbance does not rise to the level where hefeels the need for Tx. 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 Functional Status Description No Information Available Mental Status Description No Information Available Referrals Refer to Reason for Referral Status Appt Date Willie Patino MD Pt w/ longstanding hearing loss and Closed 2018 tinnitus L ear, has had infrequent but recurrent episodes of severe vertigo, all short lived. Suspected Meniere's dz. Also noted to hvae R ear cerumen impaction. Consult and Co-treatment [facility] [address] [place] [id number] [phone]
--- NOTE | 2019-04-29 07:53 | ED ---
Back Pain - HPI Summary HPI Summary: Patient is a 73 y/o M with complaints of mid-right back pain. He states that he has had back pain for "quite a while" but reports that he has had onset of severe back "spasms" over the past few days. Spasms first onset 04/26/19. Patient notes that certain movements exacerbated these spasms. Spasms continued to the next morning, patient states that he went to see his chiropractor who "worked on" his back for over an hour and provided some relief in pain. However , the spasms returned shortly after. Patient reports that he had another exacerbation of pain this morning, 04/29/19, stating that he had difficulty ambulating and breathing secondary to this pain. Patient denies incontinence but does note that straining for bowel movements exacerbates pain. Numbness of the anterior aspect of his right leg is endorsed as well, but this is reported to have been present for the past 2-3 weeks. He states that he did not have pain while he was lying flat and sleeping this past evening. Patient states that he had called his PCP, Dr. Downing, who is making arrangements for the patient to have thoracic MRI. Patient took one dose of Valium this morning around 0530/0600 at the recommendation of his doctor. He is also on meloxicam. On triage, pain is rated 4/10. Home medications and allergies are reviewed. - History of Current Complaint Chief Complaint: EDBackInjuryPain Stated Complaint: BACK PAIN Time Seen by Provider: 04/29/19 07:29 Hx Obtained From: Patient Onset/Duration: Lasting Days - spasms, Lasting Weeks - numbness, Still Present Onset/Duration: Started Days Ago - spasms, Started Weeks Ago - numbness Back Pain Location: Is Discrete @ - right mid back pain, right anterior leg numbness Severity Currently: Moderate Pain Intensity: 4 Pain Scale Used: 0-10 Numeric Character: Spasmodic Aggravating Symptom(s): Movement, Other - straining Alleviating Symptom(s): Rest Associated Signs And Symptoms: Positive: Numbness - right anterior leg. Negative: Bladder Incontinence, Bowel Incontinence - Allergies/Home Medications Allergies/Adverse Reactions: Allergies Allergy/AdvReac Type Severity Reaction Status Date / Time bee venom protein (honey bee) Allergy Anaphylatic Verified 04/29/19 07:08 Shock Home Medications: Home Medications Alfuzosin HCl [Alfuzosin HCl ER] 10 mg PO DAILY 04/29/19 [History Confirmed 09/12] Omeprazole 20 mg PO DAILY 04/29/19 [History Confirmed 04/29/19] diazePAM [Diazepam] 5 mg PO Q6HR PRN 04/29/19 [History Confirmed 04/29/19] PMH/Surg Hx/FS Hx/Imm Hx Endocrine/Hematology History: Denies: Hx Diabetes, Hx Thyroid Disease Cardiovascular History: Denies: Hx Hypertension, Hx Pacemaker/ICD Respiratory History: Denies: Hx Asthma, Hx Chronic Obstructive Pulmonary Disease (COPD) GI History: Denies: Hx Ulcer History: Denies: Hx Dialysis, Hx Renal Disease Sensory History: Reports: Hx Hearing Aid Psychiatric History: Denies: Hx Panic Disorder - Surgical History Surgery Procedure, Year, and Place: NOSE RECON AT [facility] [place] 1993, LEFT KNEE CARTLIDGE REPAIR 1998. TRIGGER FINGER/THUMB [facility] 2015, LASIK, TONSILS Infectious Disease History: No Infectious Disease History: Reports: Hx Hepatitis - HEP A, Traveled Outside the in Last 30 Days - [place] Denies: Hx Clostridium Difficile, Hx Human Immunodeficiency Virus (HIV), Hx of Known/Suspected MRSA, Hx Shingles, Hx Tuberculosis, Hx Known/Suspected VRE, Hx Known/Suspected VRSA, History Other Infectious Disease - Family History Known Family History: Positive: Cardiac Disease, Hypertension - Social History Alcohol Use: Rare Hx Substance Use: No Substance Use Type: Reports: None Hx Tobacco Use: No Smoking Status (MU): Never Smoked Tobacco Review of Systems Negative: incontinence Positive: Myalgia - right mid back Positive: Numbness - right anterior leg All Other Systems Reviewed And Are Negative: Yes Physical Exam - Summary Physical Exam Summary: Appearance: The patient is well-nourished in no acute distress and in no acute pain. Skin: The skin is warm and dry, and skin color reflects adequate perfusion. HEENT: The head is normocephalic and atraumatic. The pupils are equal and reactive. The conjunctivae are clear and without drainage. Nares are patent and without drainage. Mouth reveals moist mucous membranes, and the throat is without erythema and exudate. The external ears are intact. The ear canals are patent and without drainage. The tympanic membranes are intact. Neck: The neck is supple with full range of motion and non-tender. There are no carotid bruits. There is no neck vein distension. Respiratory: Chest is non-tender. Lungs are clear to auscultation and breath sounds are symmetrical and equal. Cardiovascular: Heart is regular rate and rhythm. There is no murmur or rub auscultated. There is no peripheral edema and pulses are symmetrical and equal. Abdomen: The abdomen is soft and non-tender. There are normal bowel sounds heard in all four quadrants and there is no organomegaly palpated. Musculoskeletal: There is no back tenderness noted. Extremities are non-tender with full range of motion. There is good capillary refill. There is no peripheral edema or calf tenderness elicited. Neurological: Patient is alert and oriented to person, place and time. The patient has symmetrical motor strength in all four extremities. Cranial nerves are grossly intact. Deep tendon reflexes are symmetrical and equal in all four extremities. Psychiatric: The patient has an appropriate affect and does not exhibit any anxiety or depression. Triage Information Reviewed: Yes Vital Signs On Initial Exam: Initial Vitals Pulse BP Pulse Ox 55 124/85 96 04/29/19 06:57 04/29/19 06:57 04/29/19 06:57 Vital Signs Reviewed: Yes Procedures - Sedation Patient Received Moderate/Deep Sedation with Procedure: No Diagnostics - Vital Signs Vital Signs Temp Pulse Resp BP Pulse Ox 04/29/19 06:58 97.6 F 60 21 124/85 96 04/29/19 06:57 55 124/85 96 - Laboratory Lab Statement: Any lab studies that have been ordered have been reviewed, and results considered in the medical decision making process. - CT THORACIC SPINE CT CT Interpretation Completed By: Radiologist Summary of CT Findings: IMPRESSION: 1. No fracture or traumatic malalignment of the thoracic spine. 2. Osteopenia. 3. Multilevel spondylosis with no severe osseous encroachment spinal canal and neural. foramina. THIS REPORT WAS REVIEWED BY DR. DENT. Back Pain Course/Dx - Course Course Of Treatment: Mr. Heard has had upper back pain on the right side of his back chronically for a long time. In the last few days to week it has gotten significantly worse. He saw his chiropractor which helped a little bit but this morning when he tried to get out of bed he had a great deal of difficulty. He has no weakness of his legs or arms but he does have some numbness in the anterior right thigh which she says is new in the last couple of weeks. He denies any urinary or bowel changes. He was obviously in pain on arrival but nontoxic in appearance with stable vitals. He cannot take nonsteroidals because he is on anticoagulation. His doctor recommended some Valium as a muscle relaxer and that is helping. He took a dose of 5 mg last night and this morning. A CT of his dorsal spine showed no acute lesion or fracture. He was given a shot of Toradol here in the emergency department and allowed to rest and did get some relief. He was able to ambulate about the department on his own. I recommended a Medrol Dosepak to decrease inflammation and follow-up with his PCP who is trying to arrange an MRI scan. - Diagnoses Provider Diagnoses: Strain of thoracic region Discharge ED - Sign-Out/Discharge Documenting (check all that apply): Patient Departure - Discharge - Discharge Plan Condition: Stable Disposition: HOME Prescriptions: methylPREDNISolone [Medrol Dosepak 4 MG*] 4 mg PO .SEE AUREA INSTRUCTION #1 tab Patient Education Materials: Thoracic Back Strain (ED) Referrals: Raul Downing MD [Primary Care Provider] - Additional Instructions: Follow up with your primary care provider in 2-3 days. Return to the Emergency Department for any new or worsening symptoms. - Billing Disposition and Condition Condition: STABLE Disposition: Home - Attestation Statements Document Initiated by Brianna: Yes Documenting Scribe: Rosey Goff Provider For Whom Brianna is Documenting (Include Credential): Pernell Dent MD Scribe Attestation: I, Rosey Goff, scribed for Pernell Dent MD on 04/29/19 at 1353. Scribe Documentation Reviewed: Yes Provider Attestation: The documentation as recorded by the Raymond pollock Susan Amquy accurately reflects the service I personally performed and the decisions made by me, Pernell Dent MD Status of Scribelder Document: Viewed
[2019-04-29] MEDS ORDERED: Ketorolac INJ* 30 MG/ML 1 ML VIAL IM ONE (08:01)
[2019-04-29 10:16] VITALS: BP 116/79
== END 2019-04-29 10:15 | disposition home or self-care (01) ==
LOC: ED 06:53
DX: S29.012A Strain of muscle and tendon of back wall of thorax, initial encounter (principal); X58.XXXA Exposure to other specified factors, initial encounter; Y92.9 Unspecified place or not applicable; Z79.899 Other long term (current) drug therapy
CPT/HCPCS: 72128; 96372; 99282; J1885

== ENCOUNTER 2021-04-05 21:28 | Observation (INO) ==
[2021-04-05] MEDS ORDERED: NS 0.9% 1000 ml BAG 1,000 ML IV.FLUID IV ONE (21:41)
[2021-04-05 21:57] LABS: Urine Appearance Cloudy; Urine Bilirubin Negative (Negative); Urine Blood 1+ (Negative); Urine Color Yellow; Urine Glucose Negative (Negative); Urine Ketones Negative (Negative); Urine Nitrite Positive (Negative); Urine Protein Negative (Negative); Urine Specific Gravity 1.009 (1.002-1.030); Urine Urobilinogen Negative (Negative)
[2021-04-05 22:12] LABS: Urine Bacteria Absent (Absent); Urine Red Blood Cell 1+(3-5/hpf) (Absent); Urine White Blood Cell 3+(>20/hpf) (Absent)
[2021-04-05 22:45] LABS: ABS Basophils 0.1 10^3/ul (0-0.2); ABS Lymphocytes 1.4 10^3/ul (1.0-4.8); ABS Monocytes 0.9 10^3/ul (0-0.8); ABS Neutrophils 13.6 10^3/ul (1.5-7.7); Eosinophil % 0.2 %; Hematocrit 47 % (42-52); Hemoglobin 15.7 g/dL (14.0-18.0); Lymphocyte % 8.6 %; Mean Corpuscular HGB Conc 34 g/dL (31-36); Mean Corpuscular Hemoglobin 32 pg (27-31); Mean Corpuscular Volume 95 fL (80-94); Mean Platelet Volume 8.5 fL (7.4-10.4); Platelet Count 181 10^3/uL (150-450); Red Cell Distribution Width 14 % (10-15)
[2021-04-05] MEDS ORDERED: cefTRIAXone 2 GM ADDV.VIAL 2 GM in NS 0.9% 100 ml BAG 100 ML IVPB ONE (22:52)
[2021-04-05 23:01] LABS: Albumin 4.3 g/dL (3.2-5.2); Albumin/Globulin Ratio 1.5 (1-3); C Reactive Protein 38.55 mg/L (<8.01); Calcium 9.3 mg/dL (8.6-10.3); Globulin 2.9 g/dL (2-4); Potassium 3.6 mmol/L (3.5-5.0); Total Bilirubin 1.2 mg/dL (0.2-1.0); Total Protein 7.2 g/dL (6.4-8.9)
[2021-04-05 23:03] LABS: Troponin I 0.01 ng/mL (<0.03)
[2021-04-05 23:14] LABS: Activated Partial Thrombo Time 29.6 seconds (26.0-38.0); INR 1.13 (0.86-1.15)
[2021-04-06 00:48] LABS: Rapid COVID-19 Molecular Undetected (Undetected)
[2021-04-06] MEDS ORDERED: Ondansetron 4 mg VIAL 2 MG/ML 2 ml VIAL IV PRN (01:27)
[2021-04-06] MEDS ORDERED: Gentamicin ADULT 350 MG in NS 0.9% 100 ml BAG 100 ML IVPB ONE (02:00)
[2021-04-06] MEDS: Enoxaparin 40 MG/0.4 ML SYR SUBCUT SCH (03:03)
[2021-04-06 05:16] LABS: ABS Basophils 0.1 10^3/ul (0-0.2); ABS Lymphocytes 0.8 10^3/ul (1.0-4.8); ABS Monocytes 1.3 10^3/ul (0-0.8); ABS Neutrophils 13.6 10^3/ul (1.5-7.7); Eosinophil % 0.1 %; Hematocrit 41 % (42-52); Lymphocyte % 5.3 %; Mean Corpuscular HGB Conc 34 g/dL (31-36); Mean Corpuscular Hemoglobin 32 pg (27-31); Mean Corpuscular Volume 95 fL (80-94); Mean Platelet Volume 8.5 fL (7.4-10.4); Platelet Count 158 10^3/uL (150-450); Red Blood Count 4.34 10^6 /uL (4.18-5.48); Red Cell Distribution Width 14 % (10-15); White Blood Count 15.9 10^3/uL (3.5-10.8)
[2021-04-06 05:33] LABS: Calcium 8.6 mg/dL (8.6-10.3); Magnesium 1.6 mg/dL (1.9-2.7); Potassium 3.6 mmol/L (3.5-5.0)
[2021-04-06] MEDS ORDERED: Magnesium Sulfate 2 gm BAG 2 GM/50 ML BAG IVPB ONE (07:17)
[2021-04-06] MEDS: CMCS: Meloxicam 7.5 mg TAB (NF) PO SCH (08:27)
[2021-04-06] MEDS: CMCS: Alfuzosin ER 10 mg TAB.ER (NF) 10 MG TAB.ER PO SCH (08:28)
[2021-04-06 09:25] LABS: PSA Screening Total 18.48 ng/mL (0-4.000)
[2021-04-06] MEDS: Polyethylene Glycol 3350 17 GM PACKET PO SCH (11:27)
[2021-04-06 12:56] LABS: Erythrocyte Sed Rate 5 mm/Hr (0-19)
[2021-04-06] MEDS: NEOMYCIN LEFT EYE SCH (20:03)
[2021-04-06] MEDS: POLYMYXIN B LEFT EYE SCH (20:03)
[2021-04-06] MEDS: DEXAMETHASONE LEFT EYE SCH (20:03)
[2021-04-06] MEDS ORDERED: Senna TAB 8.6 mg TAB PO SCH (21:00)
[2021-04-06] MEDS ORDERED: cefTRIAXone 2 GM ADDV.VIAL 2 GM in NS 0.9% 100 ml BAG 100 ML IV SCH (21:00)
[2021-04-07] MEDS: NEOMYCIN LEFT EYE SCH ×2 (08:09→16:47)
[2021-04-07] MEDS: DEXAMETHASONE LEFT EYE SCH ×2 (08:09→16:47)
[2021-04-07] MEDS: POLYMYXIN B LEFT EYE SCH ×2 (08:09→16:47)
[2021-04-07] MEDS: CMCS: Meloxicam 7.5 mg TAB (NF) PO SCH (08:11)
[2021-04-07] MEDS: Enoxaparin 40 MG/0.4 ML SYR SUBCUT SCH (08:11)
[2021-04-07] MEDS: CMCS: Alfuzosin ER 10 mg TAB.ER (NF) 10 MG TAB.ER PO SCH (08:12)
[2021-04-07] MEDS: Polyethylene Glycol 3350 17 GM PACKET PO SCH (08:17)
[2021-04-07] MEDS ORDERED: Sulfamethox/Trimethoprim DS TAB 800/160 mg PO SCH (09:00)
[2021-04-07 10:30] LABS: Calcium 8.6 mg/dL (8.6-10.3); Magnesium 2.1 mg/dL (1.9-2.7); Potassium 3.8 mmol/L (3.5-5.0)
[2021-04-07 15:14] VITALS: BP 94/58
== END 2021-04-07 15:40 | disposition home or self-care (01) ==
LOC: ED 21:28 → SSU 21:28 → SUATTDRO 04-06 01:27 → SSU 04-06 02:54
PROVIDERS: ADMIT Internal Medicine; ATTEND Student in an Organized Health Care Education/Training Program